=== PATIENT | female | born 1980 | race Caucasian/White ===

== ENCOUNTER 2017-02-04 19:40 | Emergency (ER) | payer BC, SELFPAY | END 2017-02-04 21:25 | disposition home or self-care (01) | PROVIDERS: Emergency Provider Nurse Practitioner Family; Family Provider Family Medicine; Visit Provider Nurse Practitioner Family | DX: J10.1 Influenza due to other identified influenza virus with other respiratory manifestations (principal); J45.909 Unspecified asthma, uncomplicated | CPT/HCPCS: 87804; 87880; 99201 ==

== ENCOUNTER → 2017-04-28 10:49 | Outpatient (CLI) | payer BC, SELFPAY ==
--- NOTE | 2017-04-28 10:57 | XR_ITS ---
XR abdomen min 2V COMPARISON: None HISTORY: Symptoms suggesting constipation TECHNIQUE: KUB and upright abdomen FINDINGS: The bowel gas pattern is unremarkable. There is only minimal stool seen in the ascending colon and in the rectosigmoid colon. There is no significant small bowel gas. There are no abnormal soft tissue shadows. There are surgical clips on both sides of the mid pelvis likely tubal ligation clips. The lumbar spine and bony pelvis appear normal. IMPRESSION: Essentially nondiagnostic abdomen
== END ==
PROVIDERS: PCP Family Medicine; Visit Provider Family Medicine
DX: K59.00 Constipation, unspecified (principal)
CPT/HCPCS: 74019

== ENCOUNTER → 2019-06-25 12:21 | Outpatient (CLI) | payer BC, SELFPAY ==
--- NOTE | 2019-06-25 12:33 | XR_ITS ---
PROCEDURE: XR MULTIPLE SPINE 6+V CLINICAL INDICATION: CONTUSION OF BACK,CONTUSION OF SCALP Pain COMPARISON: No exams were available for comparison FINDINGS: Cervical spine: Five views with obliques. Normal alignment. No fracture or dislocation. The foramina are widely patent and the disc spaces are well preserved. A thin curvilinear density overlies the mid aspect of the neck and may represent something upon the patient probably related to a wire within the mask. There is minimal cervical curvature convex right. There is reversal of the cervical lordosis which may be due to patient positioning or muscle spasm. Thoracic spine: Minimal thoracic curvature convex left. No fracture or dislocation. No lytic or blastic change. IMPRESSION: 1. Reversal of cervical lordosis which may be due to patient positioning or muscle spasm otherwise negative cervical spine. 2. Minimal thoracic curvature otherwise negative thoracic spine Dictated by: Aurelio De Santiago MD 06/26/2019 17:06 Electronically signed by Aurelio De Santiago MD in [place] 06/26/2019 17:06
== END ==
PROVIDERS: PCP Family Medicine; Visit Provider Family Medicine
DX: S20.229A Contusion of unspecified back wall of thorax, initial encounter (principal); S00.03XA Contusion of scalp, initial encounter
CPT/HCPCS: 72084

== ENCOUNTER → 2019-06-26 15:20 | Outpatient (CLI) | payer BC, SELFPAY ==
--- NOTE | 2019-06-26 15:27 | XR_ITS ---
PROCEDURE: REPEAT VIEW XR CLINICAL INDICATION: Repeat lateral, neck pain COMPARISON: XR MULTIPLE SPINE 6+V from 06/25/2019 FINDINGS: Lateral view the cervical spine shows reversal of the cervical lordosis with minimal anterolisthesis of C4 on C5 of 2 mm. No prevertebral soft tissue swelling fracture or other significant anomaly. IMPRESSION: Reversal of lordosis with minimal anterolisthesis of C4 on C5 which could be due to positioning or muscle spasm. Dictated by: Aurelio De Santiago MD 06/27/2019 13:27 Electronically signed by Aurelio De Santiago MD in [place] 06/27/2019 13:27
== END ==
PROVIDERS: PCP Family Medicine; Visit Provider Family Medicine
DX: M54.2 Cervicalgia (principal); M54.6 Pain in thoracic spine

== ENCOUNTER → 2019-07-01 12:54 | Outpatient (CLI) | payer BC, SELFPAY ==
--- NOTE | 2019-07-01 13:00 | CT_ITS ---
PROCEDURE: CT HEAD/BRAIN WO CON CLINICAL INDICATION: CONTUSION OF SCALP Posttraumatic headache with dizziness and nausea COMPARISON: [facility] CT HEAD W/O CONTRAST from 11/10/2015 TECHNIQUE: Axial images obtained. All CT scans at the facility use one or more dose reduction, viz: automated exposure control, ma/kV adjustment per patient size (including targeted exams where dose is matched to indication, i.e. head), or iterative reconstruction technique. FINDINGS: No midline shift, mass effect, intracranial hemorrhage, hydrocephalus, or extra-axial fluid collection is evident. The calvarium has an unremarkable appearance. No mastoid effusion. No sinus air-fluid level. IMPRESSION: No acute intracranial finding Dictated by: Aurelio De Santiago MD 07/01/2019 13:42 Electronically signed by Aurelio De Santiago MD in [place] 07/01/2019 13:42
== END ==
PROVIDERS: PCP Family Medicine; Visit Provider Family Medicine
DX: S00.03XA Contusion of scalp, initial encounter (principal)
CPT/HCPCS: 70450

== ENCOUNTER → 2019-07-10 15:20 | Outpatient (CLI) | payer BC, SELFPAY ==
--- NOTE | 2019-07-10 15:24 | US_ITS ---
PROCEDURE: US THYROID CLINICAL INDICATION: THYROIDMEGALY COMPARISON: No exams were available for comparison FINDINGS: Right lobe: 4.3 x 1.7 x 2 cm. Homogeneous echogenicity. Left lobe: 4.1 x 1.3 x 1.6 cm. Homogeneous echogenicity Isthmus: Unremarkable Additional findings: IMPRESSION: Unremarkable thyroid ultrasound Dictated by: Aurelio De Santiago MD 07/10/2019 17:48 Electronically signed by Aurelio De Santiago MD in [place] 07/10/2019 17:48
== END ==
PROVIDERS: PCP Family Medicine; Visit Provider Family Medicine
DX: E01.0 Iodine-deficiency related diffuse (endemic) goiter (principal)
CPT/HCPCS: 76536

== ENCOUNTER 2019-08-19 19:33 | Emergency (ER) | payer BC, SELFPAY ==
[2019-08-19 19:59] VITALS: BP 118/75; PULSE 83; RESP 20; TEMP 36.8; O2SAT 96; BMI 25.5
--- NOTE | 2019-08-19 20:14 | HMH.EDUTC ---
[facility] [place] Disposition Clinical Impression: Encounter for laboratory testing for COVID-19 virus Disposition: Home, Self-Care Condition on Discharge: Good Instructions: Preventing the Spread of Coronavirus Discharge Instructions Additional Instructions: Go home and self quarantine where you have a known positive exposure, you may have tested early where you are having no symptoms and may need to test again. *Stay self quarantined to watch for symptoms the next 14 days You was given hand out on what to do make sure that you follow those instructions as was given to you to help prevent the spread of COVID19 Make sure to cover your coughs, sneezes etc and wash your hands frequently Return if needed Straight to ER if any life threatening symptoms Referrals: Aneudy Orellana MD [Primary Care Provider] - As needed Forms: Work/School Release Medical Decision Making - Jose Inquiry Pt receiving controlled substance: No Jose was queried for this patient: No Vital Signs: 08/19/19 19:59 Temperature 98.2 F Temperature Source Oral Pulse Rate [Right Brachial] 83 Respiratory Rate 20 Blood Pressure [Right Arm] 118/75 Blood Pressure Mean [Right Arm] 89 Blood Pressure Source [Right Arm] Automatic Cuff Blood Pressure Position [Right Arm] Sitting 02 Sat by Pulse Oximetry 96 Oxygen Delivery Method Room Air Orders (Tests/Meds): ORDERS Category Date Time Status SARS-CoV-2, JV Stat Lab 08/19/19 19:46 Received [facility] [place] HPI - General Stated complaint: wants to be Tested for COVID 19 Time Seen by Provider: 08/19/19 20:14 Mode of Arrival: Ambulatory Source of Information: Patient Limitations: No Limitations Description of Symptoms (Recalled from Triage Doc. by RN): PATIENT STATES SHE WAS EXPOSED TO COVID-19 ON August AND IS REQUESTING A COVID TEST. SHE DENIES ANY SYMPTOMS HEENT Symptoms (Recalled from RN notes): No Resp Symptoms (Recalled from RN notes): No Skin Symptoms (Recalled from RN notes): No MS Symptoms (Recalled from RN notes): No Functional Status (Recalled from RN notes): N/A - History of Present Illness Provider Complaint: Patient states that she was around someone on August 16 that has COVID States that she isnt having any symptoms yet but was worried and wanted to get tested due to known exposure - Related Data Home Medications Medication Instructions Recorded Confirmed fluticasone propionate 50 1 spray INTRANASAL DAILY 03/13/18 03/04/19 mcg/actuation nasal spray,suspension loratadine 10 mg tablet 10 mg PO DAILY 03/13/18 03/04/19 buPROPion HCL [Bupropion Xl] 150 mg PO DAILY 03/04/19 03/04/19 Previous Rx's Medication Instructions Recorded Fluconazole [Diflucan 150mg tab] 150 mg PO ONCE #1 tab 04/23/19 predniSONE [Deltasone 10mg tablet] 10 mg PO BID 4 Days #8 tab 04/23/19 Amoxicillin/Potassium Clav 1 tab PO Q12H 7 Days #14 tab 05/13/19 [Augmentin 875-125 Tablet] Allergies Allergy/AdvReac Type Severity Reaction Status Date / Time No Known Allergies Allergy Verified 02/19/19 08:06 - Worker's Comp Is this a Worker's Comp case?: No [facility] History - Hepatitis A Screen Drug use history?: No High risk sexual behaviors?: No History of sexually transmitted infection?: No Currently employed?: No Childcare worker?: No Do you have indoor plumbing?: Yes Do you have electricity?: Yes Attestation statement:: This patient has been screened for Hepatitis A risk factors. I have reviewed the patient's past medical history: Yes Medical History: Denies:: Cancer, Diabetes Mellitus Type 1, Diabetes Mellitus Type 2, Internal Pacemaker, MRSA Other Medical History: Reports: Other Laterality Cases: Bilateral: Tonsillectomy Other Surgeries: Yes: Hysterectomy-Partial. No: Pacemaker Amputation: No Fractures: No - Social History Smoking Status: Current every day smoker Tobacco Type: cigarettes # Packs/Day (cigarettes): 1 Alcohol Intake: never Substance Use Type: denies use Occupat
[2019-08-19 20:21] VITALS: BP 118/75; PULSE 83; RESP 20; TEMP 36.8; O2SAT 96
[2019-08-21 13:23] LABS: Covid-19 Nasal PCR Sendout Lex NOT DETECTED
== END 2019-08-19 20:31 | disposition home or self-care (01) ==
PROVIDERS: Emergency Provider Nurse Practitioner; PCP Family Medicine
DX: Z03.818 Encounter for observation for suspected exposure to other biological agents ruled out (principal); F17.210 Nicotine dependence, cigarettes, uncomplicated
CPT/HCPCS: 99201; U0004

== ENCOUNTER 2019-08-27 17:35 | Emergency (ER) | payer BC, SELFPAY ==
[2019-08-27 18:18] VITALS: BP 120/75; PULSE 85; RESP 20; TEMP 36.8; O2SAT 97; BMI 25.3
--- NOTE | 2019-08-27 18:22 | HMH.EDUTC ---
[facility] [place] Clinical Impression: Exposure to COVID-19 virus Disposition: Home, Self-Care Condition on Discharge: Good Instructions: Preventing the Spread of Coronavirus Discharge Instructions Additional Instructions: Drink plenty of fluids. Take tylenol or ibuprofen for pain or fever. Take the medications as directed. Follow up with your regular doctor. GO TO THE ER FOR ANY WORSENING SYMPTOMS FOLLOW THE INSTRUCTIONS ON THE COVID-19 HAND OUT THAT WE GAVE YOU. Referrals: Aneudy Orellana MD [Primary Care Provider] - Time of Disposition: 18:24 Medical Decision Making - Medical Records Medical records reviewed: No: I reviewed the patient's medical records. - Jose Inquiry Pt receiving controlled substance: No Vital Signs: 08/27/19 18:18 Temperature 98.3 F Temperature Source Oral Pulse Rate [Right Brachial] 85 Respiratory Rate 20 Blood Pressure [Right Arm] 120/75 Blood Pressure Mean [Right Arm] 90 Blood Pressure Source [Right Arm] Automatic Cuff Blood Pressure Position [Right Arm] Sitting 02 Sat by Pulse Oximetry 97 Oxygen Delivery Method Room Air [facility] [place] - General Stated complaint: wants COVID-19 Test Time Seen by Provider: 08/27/19 18:22 Mode of Arrival: Ambulatory Source of Information: Patient Limitations: No Limitations Description of Symptoms (Recalled from Triage Doc. by RN): PATIENT EXPOSED TO COVID AT [facility] ON 08/16. WAS TESTED LAST WEEK AND WAS NEGATIVE. REQUESTING ANOTHER TEST. DENIES ANY SYMPTOMS HEENT Symptoms (Recalled from RN notes): No Resp Symptoms (Recalled from RN notes): No Skin Symptoms (Recalled from RN notes): No MS Symptoms (Recalled from RN notes): No Functional Status (Recalled from RN notes): WNL - History of Present Illness Provider Complaint: She states that she was exposed to someone with COVID-19 last week. She denies any symptoms but she would like to be checked to make sure, because the person that she was exposed to was asymptomatic too. - Related Data Home Medications Medication Instructions Recorded Confirmed fluticasone propionate 50 1 spray INTRANASAL DAILY 03/13/18 03/04/19 mcg/actuation nasal spray,suspension loratadine 10 mg tablet 10 mg PO DAILY 03/13/18 03/04/19 buPROPion HCL [Bupropion Xl] 150 mg PO DAILY 03/04/19 03/04/19 Previous Rx's Medication Instructions Recorded Fluconazole [Diflucan 150mg tab] 150 mg PO ONCE #1 tab 04/23/19 predniSONE [Deltasone 10mg tablet] 10 mg PO BID 4 Days #8 tab 04/23/19 Amoxicillin/Potassium Clav 1 tab PO Q12H 7 Days #14 tab 05/13/19 [Augmentin 875-125 Tablet] Allergies Allergy/AdvReac Type Severity Reaction Status Date / Time No Known Allergies Allergy Verified 02/19/19 08:06 - Worker's Comp Is this a Worker's Comp case?: No [facility] History - Hepatitis A Screen Drug use history?: No High risk sexual behaviors?: No History of sexually transmitted infection?: No Currently employed?: No Childcare worker?: No Do you have indoor plumbing?: Yes Do you have electricity?: Yes Attestation statement:: This patient has been screened for Hepatitis A risk factors. I have reviewed the patient's past medical history: Yes Medical History: Denies:: Cancer, Diabetes Mellitus Type 1, Diabetes Mellitus Type 2, Internal Pacemaker, MRSA Other Medical History: Reports: Other Laterality Cases: Bilateral: Tonsillectomy Other Surgeries: Yes: Hysterectomy-Partial. No: Pacemaker Amputation: No Fractures: No - Social History Smoking Status: Current every day smoker Tobacco Type: cigarettes # Packs/Day (cigarettes): 1 Alcohol Intake: never Substance Use Type: denies use Occupational Status: other Family Hx:: No significant family history ROS Obtained: Yes All systems reviewed & no additional complaints - Constitutional Constitutional: Denies chills, Denies fever(s) - Eyes Eyes: Denies eye discharge - ENT Ears, Nose, Mouth, and Throat: Denies dizziness, Denies otalgi
[2019-08-27 19:03] VITALS: BP 120/75; PULSE 85; RESP 20; TEMP 36.8; O2SAT 97
[2019-08-29 11:46] LABS: Covid-19 Nasal PCR Sendout Lex Not Detected
== END 2019-08-27 19:05 | disposition home or self-care (01) ==
PROVIDERS: Emergency Provider Nurse Practitioner Family; PCP Family Medicine
DX: Z20.828 Contact with and (suspected) exposure to other viral communicable diseases (principal); F17.210 Nicotine dependence, cigarettes, uncomplicated
CPT/HCPCS: 99201; U0004

== ENCOUNTER 2020-01-16 14:45 | Emergency (ER) | payer OTHER, SELFPAY ==
[2020-01-16 14:46] VITALS: BP 148/76; PULSE 88; RESP 16; TEMP 36.9; O2SAT 98; BMI 24.7
--- NOTE | 2020-01-16 15:27 | CT_ITS ---
PROCEDURE: CT CERVICAL SPINE WO CON CLINICAL INDICATION: tingling/ numbess sensation down right arm COMPARISON: No exams were available for comparison TECHNIQUE: Axial images obtained with sagittal and coronal reformats. All CT scans at the facility use one or more dose reduction, viz: automated exposure control, ma/kV adjustment per patient size (including targeted exams where dose is matched to indication, i.e. head), or iterative reconstruction technique. Axial spiral CT scanning performed of the cervical spine beginning at the base of the skull and continuing to the upper T-spine. 3-D multiplanar reconstruction with 3-D manipulation of volumetric data set in image rendering was completed by the radiologist and/or technologist with the supervision of the radiologist on independent workstation. FINDINGS: There is straightening of the cervical lordosis. This is nonspecific and may be due to patient positioning or muscle spasm. There is normal alignment. No fracture or dislocation. There is slight decrease in the disc space at C5-C6 suggesting mild degenerative disc disease with some minimal endplate osteophytes toward the right. No bony canal stenosis or obvious large extruded herniated disc is evident. Scattered small nodes are present in the neck. IMPRESSION: 1. Reversal cervical lordosis which may be due to patient positioning or muscle spasm. 2. Mild degenerative disc disease C5-C6 Dictated by: Aurelio De Santiago MD 01/16/2020 15:58 Aurelio De Santiago MD in [place] 01/16/2020 15:58
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
[2020-01-16 17:31] VITALS: BP 144/68; PULSE 87; RESP 16; TEMP 36.6; O2SAT 98
== END 2020-01-16 17:33 | disposition home or self-care (01) ==
PROVIDERS: Emergency Provider Emergency Medicine; PCP Family Medicine
DX: S16.1XXA Strain of muscle, fascia and tendon at neck level, initial encounter (principal); M89.8X1 Other specified disorders of bone, shoulder; V63.5XXA Driver of heavy transport vehicle injured in collision with car, pick-up truck or van in traffic accident, initial encounter; Y92.488 Other paved roadways as the place of occurrence of the external cause; F17.210 Nicotine dependence, cigarettes, uncomplicated
CPT/HCPCS: 72125; 99282

== ENCOUNTER 2020-06-21 12:22 | Emergency (ER) | payer OTHER, SELFPAY ==
[2020-06-21 12:24] VITALS: BP 128/91; BP 129/77; PULSE 65; PULSE 66; RESP 16; RESP 17; TEMP 36.6; TEMP 37.1; O2SAT 95; O2SAT 98; BMI 25.0
[2020-06-21 13:05] VITALS: BP 128/91; PULSE 65; RESP 17; TEMP 37.1; O2SAT 95
--- NOTE | 2020-06-21 13:06 | XR_ITS ---
PROCEDURE INFORMATION: Exam: XR Right Hand Exam date and time: 06/21/2020 1:06 PM Age: 40 years old Clinical indication: Pain; Hand; Right; Additional info: Mirror fell on hand TECHNIQUE: Imaging protocol: XR Right hand. Views: 3 or more views. COMPARISON: No relevant prior studies available. FINDINGS: Bones/joints: Lucencies in the head and neck of the 5th metacarpal consistent with nondisplaced fracture.. Soft tissues: Soft tissue swelling adjacent to the 5th metacarpal IMPRESSION: Lucencies in the head and neck of the 5th metacarpal consistent with nondisplaced fracture..
--- NOTE | 2020-06-21 13:06 | HMH.EDUTC ---
[facility] [place] Disposition Clinical Impression: Metacarpal bone fracture Qualifiers: Encounter type: initial encounter Metacarpal bone: fifth Fracture type: closed Metacarpal location: neck Fracture alignment: nondisplaced Laterality: right Qualified Code(s): S62.366A - Nondisplaced fracture of neck of fifth metacarpal bone, right hand, initial encounter for closed fracture Disposition: Home, Self-Care Condition on Discharge: Good Instructions: DI for Boxer's Fracture, How To Perform RICE (Rest, Ice, Compress, Elevate), Boxer's Fracture Additional Instructions: *RICE, Rest the extremity, Ice 15-20 minutes 3-4 times daily, Compress- wear the fei wrap as discussed as much as possible to help reduce swelling and pain, Elevate the extremity when at rest *Fei wrap is for support and help control swelling, use it except in the shower. Be sure that is not to tight but not to loose either *Elevate when resting *Ibuprofen every 6-8 hours as needed for pain an inflammation. If need something more can take Tylenol in between doses of Ibuprofen to help Immediately follow up with your family doctor for new or worsening of symptoms, or no noticeable improvement over the next 3-5 days Prescriptions: Naproxen [Naproxen 500mg tab] 500 mg PO BID PRN #20 tab PRN Reason: Moderate Pain Transmission Status: Received by [id number] Referrals: Aneudy Orellana MD [Primary Care Provider] - As needed Lilly Campos MD [Physician] - (Office will call in the morning with appointment) Time of Disposition: 13:57 Medical Decision Making - Jose Inquiry Pt receiving controlled substance: No Jose was queried for this patient: No Vital Signs: 06/21/20 12:24 06/21/20 13:05 Temperature 98.8 F 98.8 F Temperature Source Oral Pulse Rate 65 Pulse Rate [Radial] 65 Respiratory Rate 17 17 Blood Pressure 128/91 H Blood Pressure [Right Arm] 128/91 H Blood Pressure Mean [Right Arm] 103 Blood Pressure Position [Right Arm] Sitting 02 Sat by Pulse Oximetry 95 Oxygen Delivery Method Room Air - Radiology Data #1 Image(s): Hand Image Reviewed: Yes I reviewed the patient's radiology image Fracture neck of fifth metacarpal - Physician Consults Physician Consulted: Beth Time: 13:50 Reason -: Orthopedic Eval/Care Comment/Response: Spoke with Dr Campos and she viewed xray and agreed Advised to place in ulnar gutter splint RICE Nsaids and office will call in the morning with appointment [facility] [place] HPI - General Stated complaint: Mirror fell right hand-swollen Time Seen by Provider: 06/21/20 13:06 Mode of Arrival: Ambulatory Source of Information: Patient Limitations: No Limitations Description of Symptoms (Recalled from Triage Doc. by RN): right hand injury HEENT Symptoms (Recalled from RN notes): No Resp Symptoms (Recalled from RN notes): No Skin Symptoms (Recalled from RN notes): No MS Symptoms (Recalled from RN notes): Yes Functional Status (Recalled from RN notes): wnl - History of Present Illness Provider Complaint: Patient states that about an hour ago a mirror fell and hit her in the right hand States that ever since she has been having pain and swelling in her right hand on the side by her little finger - Related Data Home Medications Medication Instructions Recorded Confirmed fluticasone propionate 50 1 spray INTRANASAL DAILY 03/13/18 03/04/19 mcg/actuation nasal spray,suspension loratadine 10 mg tablet 10 mg PO DAILY 03/13/18 03/04/19 buPROPion HCL [Bupropion Xl] 150 mg PO DAILY 03/04/19 03/04/19 Previous Rx's Medication Instructions Recorded Fluconazole [Diflucan 150mg tab] 150 mg PO ONCE #1 tab 04/23/19 predniSONE [Deltasone 10mg tablet] 10 mg PO BID 4 Days #8 tab 04/23/19 Amoxicillin/Potassium Clav 1 tab PO Q12H 7 Days #14 tab 05/13/19 [Augmentin 875-125 Tablet] Naproxen [Naproxen 500mg tab] 500 mg PO BID PRN #20 tab 06/21/20 Allergies Allergy/AdvReac Type Severity Reaction Stat
== END 2020-06-21 14:59 | disposition home or self-care (01) ==
PROVIDERS: Emergency Provider Nurse Practitioner; PCP Family Medicine
DX: S62.306A Unspecified fracture of fifth metacarpal bone, right hand, initial encounter for closed fracture (principal); W22.8XXA Striking against or struck by other objects, initial encounter; Y92.019 Unspecified place in single-family (private) house as the place of occurrence of the external cause; Z87.891 Personal history of nicotine dependence
CPT/HCPCS: 29125; 73130; 99202; G0463

== ENCOUNTER → 2020-07-06 08:52 | Outpatient (CLI) | payer OTHER, SELFPAY ==
--- NOTE | 2020-07-06 09:01 | XR_ITS ---
PROCEDURE: XR HAND RT MIN 3V CLINICAL INDICATION: R 5th metacarpal neck fracture Follow-up fracture COMPARISON: CR XR HAND RT MIN 3V from 06/21/2020 FINDINGS: Nondisplaced comminuted fracture involves the distal aspect of the 5th metacarpal. There is mild radial and palmar angulation of the distal fracture fragment. The joint spaces are well-preserved. No significant degenerative/arthritic changes. No erosive changes evident. Other findings:None. IMPRESSION: No change nondisplaced boxer's fracture 5th metacarpal Dictated by: Aurelio De Santiago MD 07/06/2020 09:28 Aurelio De Santiago MD in [place] 07/06/2020 09:28
== END ==
PROVIDERS: PCP Family Medicine; Visit Provider Orthopaedic Surgery
DX: S62.309A Unspecified fracture of unspecified metacarpal bone, initial encounter for closed fracture (principal)
CPT/HCPCS: 73130

== ENCOUNTER 2020-07-06 13:01 | Outpatient (RCR) | payer OTHER, SELFPAY | END 2020-07-06 15:00 | disposition home or self-care (01) | LOC: OT 13:01 | PROVIDERS: Visit Provider Orthopaedic Surgery | DX: S62.366A Nondisplaced fracture of neck of fifth metacarpal bone, right hand, initial encounter for closed fracture (principal) | CPT/HCPCS: 97760 ==

== ENCOUNTER → 2020-08-11 13:25 | Outpatient (CLI) | payer OTHER, SELFPAY ==
--- NOTE | 2020-08-11 13:29 | XR_ITS ---
PROCEDURE: XR HAND RT MIN 3V CLINICAL INDICATION: right 5th MC fracture COMPARISON: CR XR HAND RT MIN 3V from 06/21/2020 CR XR HAND RT MIN 3V from 07/06/2020 FINDINGS: Healing nondisplaced fracture involves the distal aspect of the 5th metacarpal. There is minimal radial and palmar angulation of the distal fracture fragment. Callus formation is developing at the fracture site. The joint spaces are well-preserved. No significant degenerative/arthritic changes. No erosive changes evident. Other findings:None. IMPRESSION: Healing nondisplaced fracture 5th metacarpal Dictated by: Aurelio De Santiago MD 08/11/2020 17:38 Aurelio De Santiago MD in [place] 08/11/2020 17:38
== END ==
PROVIDERS: PCP Family Medicine; Visit Provider Orthopaedic Surgery
DX: S62.309A Unspecified fracture of unspecified metacarpal bone, initial encounter for closed fracture (principal)
CPT/HCPCS: 73130

== ENCOUNTER → 2020-12-09 11:40 | Outpatient (CLI) | payer OTHER, SELFPAY ==
[2020-12-09 12:51] LABS: Alanine Aminotransferase 15 U/L (12-78); Albumin Level 4.3 g/dl (3.5-5.0); Albumin/Globulin Ratio 1.5 (1.1-1.8); Alkaline Phosphatase 60 U/L (38-126); Aspartate Amino Transferase 24 U/L (14-36); Bilirubin,Total 0.3 mg/dl (0.2-1.3); Blood Urea Nitrogen 9 mg/dl (7-17); Calcium 9.5 mg/dl (8.4-10.2); Carbon Dioxide 29 mmol/L (22.0-30.0); Chloride 103 mmol/L (98-107); Estimated Glomerular Filt Rate 112 ml/min (>60); GFR (African American) 135 ML/MIN (>60); Globulin 2.8 g/dL (1.3-3.2); Glucose 104 mg/dl (74-100); Sodium 141 mmol/L (136-145); Total Protein,Serum 7.1 g/dl (6.3-8.2)
== END ==
PROVIDERS: Visit Provider Nurse Practitioner Obstetrics & Gynecology
DX: Z79.899 Other long term (current) drug therapy (principal)
CPT/HCPCS: 36415; 80053

== ENCOUNTER → 2021-02-05 09:49 | Outpatient (CLI) | payer OTHER, SELFPAY | PROVIDERS: Visit Provider Nurse Practitioner | DX: U07.1 COVID-19 (principal) | CPT/HCPCS: C9803; U0003; U0005 ==

== ENCOUNTER → 2021-04-06 15:21 | Outpatient (CLI) | payer OTHER, SELFPAY ==
--- NOTE | 2021-04-06 15:26 | CT_ITS ---
FINAL REPORT TECHNIQUE: After the administration of intravenous contrast, axial images through the chest were performed by computed tomography.This study was performed with techniques to keep radiation doses as low as reasonably achievable, (ALARA). Individualized dose reduction techniques using automated exposure control or adjustment of mA and/or kV according to the patient''s size were employed. CLINICAL HISTORY: COUGH,WEIGHT LOSS FINDINGS: There is no axillary adenopathy. There is soft tissue knee anterior mediastinum probably due to residual thymic tissue. There is no hilar or mediastinal adenopathy. The heart size is normal. There is no pericardial or pleural effusion. Limited images of the upper abdomen are unremarkable. No suspicious infiltrate or nodule identified. IMPRESSION: No acute process. Reviewed, Interpreted and Dictated by Harvinder Frias MD Transcribed by Marcelo Olmstead Authenticated by Harvinder Frias MD on 04/06/2021 04:49:24 PM [facility]
== END ==
PROVIDERS: PCP Internal Medicine Adolescent Medicine; Visit Provider Internal Medicine Adolescent Medicine
DX: R05.9 Cough, unspecified (principal); R63.4 Abnormal weight loss
CPT/HCPCS: 71260; Q9967

== ENCOUNTER 2021-05-22 09:07 | Emergency (ER) | payer OTHER, SELFPAY ==
[2021-05-22 09:16] VITALS: BP 136/79; PULSE 80; RESP 19; TEMP 37; O2SAT 96; BMI 25.0
--- NOTE | 2021-05-22 09:36 | HMH.EDUTC ---
[facility] Disposition Clinical Impression: Sinusitis Qualifiers: Sinusitis location: unspecified location Chronicity: acute Recurrence: non-recurrent Qualified Code(s): J01.90 - Acute sinusitis, unspecified Otitis media Qualifiers: Otitis media type: suppurative Chronicity: acute Laterality: bilateral Recurrence: non-recurrent Spontaneous tympanic membrane rupture: without spontaneous rupture Qualified Code(s): H66.003 - Acute suppurative otitis media without spontaneous rupture of ear drum, bilateral Disposition: Home, Self-Care Condition on Discharge: Good Instructions: DI for Sinusitis Additional Instructions: Drink plenty of fluids. Take tylenol or ibuprofen for pain or fever. Take the medications as directed. Follow up with your regular doctor. GO TO THE ER FOR ANY WORSENING SYMPTOMS Prescriptions: Amoxicillin/Potassium Clav [Amox-Clav 875-125 mg Tablet] 1 tab PO BID #20 tab Transmission Status: Received by [id number] methylPREDNISolone [Medrol] 4 mg PO DIRECTED 6 Days #21 packet Transmission Status: Received by [id number] guaiFENesin [Mucinex 600mg tablet] 1 - 2 tab PO BIDP PRN #30 tab PRN Reason: Congestion Transmission Status: Received by [id number] Referrals: Carlos Wolf MD [Primary Care Provider] - Time of Disposition: 09:57 Medical Decision Making - Medical Records Medical records reviewed: No: I reviewed the patient's medical records. - Jose Inquiry Pt receiving controlled substance: No Vital Signs: 05/22/21 09:16 05/22/21 10:02 Temperature 98.6 F 98.6 F Temperature Source Oral Pulse Rate 80 Pulse Rate [Left] 80 Respiratory Rate 19 19 Blood Pressure 136/79 Blood Pressure [Right Arm] 136/79 Blood Pressure Mean [Right Arm] 98 02 Sat by Pulse Oximetry 96 [facility] HPI - General Stated complaint: ear pain, sinus drainage Time Seen by Provider: 05/22/21 09:36 Mode of Arrival: Ambulatory Source of Information: Patient Limitations: No Limitations Description of Symptoms (Recalled from Triage Doc. by RN): pt c/o sinus drainage/congestion and bilateral ear aches. HEENT Symptoms (Recalled from RN notes): Yes Resp Symptoms (Recalled from RN notes): No Skin Symptoms (Recalled from RN notes): No MS Symptoms (Recalled from RN notes): No Functional Status (Recalled from RN notes): wnl - History of Present Illness Provider Complaint: She states that she has had bilateral ear pain for the past 2 days. - Related Data Home Medications Medication Instructions Recorded Confirmed fluticasone propionate 50 1 spray INTRANASAL DAILY 03/13/18 12/09/20 mcg/actuation nasal spray,suspension loratadine 10 mg tablet 10 mg PO DAILY 03/13/18 12/09/20 B-complex with vitamin C 1 cap PO DAILY 12/09/20 12/09/20 biotin 1 mg capsule 1 mg PO DAILY 12/09/20 12/09/20 cholecalciferol (vitamin D3) 50 50 mcg PO DAILY 12/09/20 12/09/20 mcg (2,000 unit) capsule magnesium 30 mg tablet 30 mg PO DAILY 12/09/20 12/09/20 Previous Rx's Medication Instructions Recorded bupropion HCl 150 mg 24 hr tablet, 150 mg PO DAILY #90 tab 10/01/20 extended release spironolactone 100 mg tablet 100 mg PO DAILY #90 tab 12/09/20 Amoxicillin/Potassium Clav 1 tab PO BID #20 tab 05/22/21 [Amox-Clav 875-125 mg Tablet] guaiFENesin [Mucinex 600mg tablet] 1 - 2 tab PO BIDP PRN #30 tab 05/22/21 methylPREDNISolone [Medrol] 4 mg PO DIRECTED 6 Days #21 05/22/21 packet Allergies Allergy/AdvReac Type Severity Reaction Status Date / Time No Known Allergies Allergy Verified 12/09/20 10:14 - Worker's Comp Is this a Worker's Comp case?: No [facility] History - Hepatitis A Screen Drug use history?: No High risk sexual behaviors?: No History of sexually transmitted infection?: No Currently employed?: No Childcare worker?: No Do you have indoor plumbing?: Yes Do you have electricity?: Yes Attestation statement:: This patient has been screened for Hepa
[2021-05-22 10:02] VITALS: BP 136/79; PULSE 80; RESP 19; TEMP 37
== END 2021-05-22 10:03 | disposition home or self-care (01) ==
PROVIDERS: Emergency Provider Nurse Practitioner Family; PCP Internal Medicine Adolescent Medicine
DX: H66.003 Acute suppurative otitis media without spontaneous rupture of ear drum, bilateral (principal); J01.90 Acute sinusitis, unspecified; F17.210 Nicotine dependence, cigarettes, uncomplicated; Z79.51 Long term (current) use of inhaled steroids; Z79.899 Other long term (current) drug therapy
CPT/HCPCS: 99213; G0463

== ENCOUNTER → 2021-07-21 15:18 | Outpatient (CLI) | payer OTHER, SELFPAY ==
--- NOTE | 2021-07-21 15:30 | CT_ITS ---
FINAL REPORT TECHNIQUE: Thin section axial CT images with coronal and sagittal reformats were performed through the neck. This study was performed with techniques to keep radiation doses as low as reasonably achievable (ALARA). Individualized dose reduction techniques using automated exposure control or adjustment of mA and/or kV according to the patient''s size were employed. CLINICAL HISTORY: DIFFICULTY BREATHING FINDINGS: No adenopathy or mass lesion is present . Salivary glands are normal. The nasopharynx, oropharynx, hypopharynx, and larynx have an unremarkable appearance. Thyroid gland is unremarkable. There is no neck mass or adenopathy. There is no abnormal fluid collection. The sinuses are normal. There are postoperative changes in the lower cervical spine. IMPRESSION: No acute abnormality. Reviewed, Interpreted and Dictated by Alvaro Manrique III, MD Transcribed by Naida Avila Authenticated and [facility]
[2021-07-21 17:27] LABS: Alanine Aminotransferase 14 U/L (12-78); Albumin Level 4.4 g/dl (3.5-5.0); Alkaline Phosphatase 79 U/L (38-126); Aspartate Amino Transferase 24 U/L (14-36); Bilirubin,Unconjugated 0.4 mg/dL (0.0-1.1); Blood Urea Nitrogen 13 mg/dl (7-17); Calcium 9.5 mg/dl (8.4-10.2); Carbon Dioxide 28 mmol/L (22.0-30.0); Chloride 103 mmol/L (98-107); Estimated Glomerular Filt Rate 93 ml/min (>60); GFR (African American) 113 ML/MIN (>60); Glucose 86 mg/dl (74-100); Sodium 139 mmol/L (136-145); Total Protein,Serum 7.3 g/dl (6.3-8.2)
[2021-07-21 17:36] LABS: Bilirubin,Indirect 0.1 mg/dL (0.0-0.9); Bilirubin,Total 0.1 mg/dl (0.2-1.3)
== END ==
PROVIDERS: PCP Internal Medicine Adolescent Medicine; Visit Provider Nurse Practitioner Obstetrics & Gynecology
DX: R06.89 Other abnormalities of breathing (principal)
CPT/HCPCS: 36415; 70490; 80048; 80076

== ENCOUNTER 2021-08-30 19:36 | Emergency (ER) | payer OTHER, SELFPAY ==
[2021-08-30 19:37] VITALS: BP 117/77; PULSE 78; RESP 18; TEMP 36.5; O2SAT 99; BMI 25.0
[2021-08-30 20:17] LABS: Occult Blood,Stool Positive (Negative)
--- NOTE | 2021-08-30 20:20 | CT_ITS ---
PROCEDURE INFORMATION: Exam: CT Abdomen And Pelvis With Contrast Exam date and time: 08/30/2021 8:30 PM Age: 41 years old Clinical indication: Other: Bloody stool; Prior surgery; Surgery date: 6+ months; Surgery type: Hysterectomy; Additional info: Rectal bleeding x wks since starting new medication TECHNIQUE: Imaging protocol: Computed tomography of the abdomen and pelvis with contrast. Radiation optimization: All CT scans at this facility use at least one of these dose optimization techniques: automated exposure control; mA and/or kV adjustment per patient size (includes targeted exams where dose is matched to clinical indication); or iterative reconstruction. Contrast material: ISOVUE; Contrast volume: 75 ml; Contrast route: IV; COMPARISON: CT ABDOMEN PELVIS W CON 03/04/2019 9:23 PM FINDINGS: Lungs: No mass/infiltrate at either lung base. No pleural effusion. Liver: The liver is normal size. There is an ill-defined area of decreased attenuation within the lateral aspect of the medial segment of the left hepatic lobe adjacent to the falciform ligament. This is felt to represent focal fatty metamorphosis. No intrahepatic biliary dilatation. Gallbladder and bile ducts: Normal. No calcified stones. No ductal dilation. Gallbladder wall thickness is normal. Pancreas: Normal. No ductal dilation. Spleen: Normal. No splenomegaly. Adrenal glands: Normal. No mass. Kidneys and ureters: Normal. No hydronephrosis. Stomach and bowel: Unremarkable. No obstruction. No mucosal thickening. Small bowel mesentery is normal. Appendix: Unremarkable. Intraperitoneal space: Unremarkable. No free air. No significant fluid collection. Vasculature: Unremarkable. No abdominal aortic aneurysm. There are calcified phleboliths within the pelvis. Lymph nodes: Unremarkable. No enlarged lymph nodes. Urinary bladder: Unremarkable as visualized. Reproductive: Hysterectomy has been performed. 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 No acute fracture. Soft tissues: There is a small umbilical hernia which contains fat. IMPRESSION: 1. Findings within the left hepatic lobe are compatible with focal fatty metamorphosis. No mass. 2. Hysterectomy has been performed. 3. There is a small umbilical hernia which contains fat. 4. No acute process within the abdomen or pelvis.
[2021-08-30 20:21] LABS: Microscopic, Urine URINE MICROSCOPIC (MICROSCOPIC)
[2021-08-30 20:29] LABS: Basophils # 0.1 K/mm3 (0-0.2); Eosinophils # 0.1 K/mm3 (0.0-0.4); Eosinophils % 0.9 % (0.1-12.0); Hemoglobin 15.4 g/dL (12.2-16.2); Lymphocytes # 2.6 K/mm3 (0.7-4.5); Lymphocytes % 22.3 % (10-50); Mean Corpuscular HGB Conc 34.3 g/dL (31.8-35.4); Mean Corpuscular Hemoglobin 30.3 pg (27.0-31.2); Mean Corpuscular Volume 88.4 fl (81-99); Mean Platelet Volume 6.9 fl (7.4-10.4); Monocytes # 0.5 K/mm3 (0.1-1.0); Monocytes % 4.3 % (1.7-9.3); Neutrophils # 8.3 K/mm3 (1.8-7.8); Neutrophils % 71.6 % (37.0-80.0); Platelet Count 221 K/mm3 (142-424); Red Blood Count 5.09 M/mm3 (4.20-5.40); Red Cell Distribution Width 12.3 % (11.5-17.5); White Blood Count 11.6 K/mm3 (4.8-10.8)
[2021-08-30 20:30] LABS: Alanine Aminotransferase 14 U/L (12-78); Albumin/Globulin Ratio 1.4 (1.1-1.8); Alkaline Phosphatase 74 U/L (38-126); Anion Gap 9.7 mEq/L (5-15); Aspartate Amino Transferase 23 U/L (14-36); Blood Urea Nitrogen 15 mg/dl (7-17); Calcium 8.8 mg/dl (8.4-10.2); Carbon Dioxide 27 mmol/L (22.0-30.0); Chloride 104 mmol/L (98-107); Creatinine Clearance Estimated 96 mL/min (50-200); Estimated Glomerular Filt Rate 70 ml/min (>60); GFR (African American) 84 ML/MIN (>60); Globulin 2.9 g/dL (1.3-3.2); Glucose 109 mg/dl (74-100); Potassium 3.7 mmoL/L (3.5-5.1); Sodium 137 mmol/L (136-145); Total Protein,Serum 6.9 g/dl (6.3-8.2)
[2021-08-30 20:32] LABS: Bilirubin,Total < 0.1 mg/dl (0.2-1.3)
[2021-08-30 20:47] LABS: Appearance,Urine CLEAR (Clear); Bilirubin,Urine Negative (Negative); Blood, Urine Negative (Negative); Color,Urine YELLOW (Yellow); Glucose,Urine (UA) Negative (Negative); Ketones,Urine TRACE (Negative); Leukocyte Esterase,Urine Negative (Negative); Nitrate,Urine Negative (Negative); Procalcitonin 0.035 ng/mL (0.0-2.0); Protein,Urine TRACE (Negative); Specific Gravity, Urine >= 1.030 (1.005-1.030)
--- NOTE | 2021-08-30 21:14 | HMH.EDGIBL ---
ED Disposition Clinical Impression: Lower gastrointestinal hemorrhage Disposition: Home, Self-Care Condition on Discharge: Good Instructions: DI for Gastrointestinal Bleeding Additional Instructions: call pcp in am Referrals: Carlos Wolf MD [Primary Care Provider] - - Critical Care Critical Care Time: No Attestation: On 08/30/21, the high probability of a clinically significant, sudden or life threatening deterioration of the following system(s) required my full and direct attention, intervention and personal management. The time I documented below is in addition to time spent performing reported procedures but includes the following listed in this critical care notation. Medical Decision Making - Medical Records Medical records reviewed: Yes: I reviewed the patient's medical records. - Jose Inquiry Pt receiving controlled substance: No Vital Signs: 08/30/21 19:37 Temperature 97.7 F Temperature Source Oral Pulse Rate [Right] 78 Respiratory Rate 18 Blood Pressure [Right Arm] 117/77 Blood Pressure Mean [Right Arm] 90 02 Sat by Pulse Oximetry 99 - Lab Data Lab results reviewed: Yes: I reviewed the patient's lab results. Lab Results 08/30/21 20:10: Stool Occult Blood Positive A 08/30/21 20:16: WBC 11.6 H, RBC 5.09, Hgb 15.4, Hct 45.0, MCV 88.4, MCH 30.3, MCHC 34.3, RDW 12.3, Plt Count 221, MPV 6.9 L, Neut % (Auto) 71.6, Lymph % (Auto) 22.3, [place] % (Auto) 4.3, Eos % (Auto) 0.9, Baso % (Auto) 1.0, Neut # (Auto) 8.3 H, Lymph # (Auto) 2.6, Valencia # (Auto) 0.5, Eos # (Auto) 0.1, Baso # (Auto) 0.1, ESR 4 08/30/21 20:16: Sodium 137, Potassium 3.7, Chloride 104, Carbon Dioxide 27, Anion Gap 9.7, BUN 15, Creatinine 0.90, Estimated Creat Clear 96, Estimated GFR 70, Est GFR ( Amer) 84, Glucose 109 H, Calcium 8.8, Total Bilirubin < 0.1 L, AST 23, ALT 14, Alkaline Phosphatase 74, C-Reactive Protein 1.0, Total Protein 6.9, Albumin 4.0, Globulin 2.9, Albumin/Globulin Ratio 1.4, Procalcitonin 0.035 08/30/21 20:16: Urine Color Yellow, Urine Appearance Clear, Urine pH 6.0, Ur Specific [place] >= 1.030, Urine Protein Trace, Urine Glucose (UA) Negative, Urine Ketones Trace, Urine Blood Negative, Urine Nitrate Negative, Urine Bilirubin Negative, Urine Urobilinogen 1.0, Ur Leukocyte Esterase Negative, Urine WBC 3-5, Ur Squamous Epith Cells 3-5, Urine Bacteria 1+, Urine Mucus 1+ Result diagrams: 08/30/21 20:16 08/30/21 20:16 Orders (Tests/Meds): ED MEDICATIONS Generic Name Dose Route Start Last Admin Trade Name Freq PRN Reason Stop Dose Admin Sodium Chloride 1,000 mls @ 999 mls/hr 08/30/21 20:30 08/30/21 20:30 Sod Chlor 0.9% 1000ml Bag IV 08/30/21 21:30 999 mls/hr .Q1H1M HENRRY Administration Discontinued Medications Generic Name Dose Route Start Last Admin Trade Name Freq PRN Reason Stop Dose Admin Iopamidol 75 ml 08/30/21 20:34 08/30/21 20:35 Iopamidol-370 (76%);100ml Bottle IV 08/30/21 20:35 75 ml ONCE ONE Administration Sodium Chloride 10 ml 08/30/21 20:34 08/30/21 20:35 Sodium Chloride 0.9% 10ml Syr (Rad Only) IV 08/30/21 20:35 10 ml ONCE ONE Administration - CT Data CT Scan: Abdomen, Pelvis Time Received: 21:[address] Reviewed: Yes: I have viewed the radiologist's interpretation Preliminary Findings: Normal/NAD Medical Decision Narrative: brrb with stable labs and xray and will need f/u with pcp for possible colonoscopy GI Bleed HPI - General Chief complaint: GI Bleed Stated complaint: bleeding from below area and stomach hurts Time Seen by Provider: 08/30/21 21:14 Mode of Arrival: Ambulatory Source of Information: Patient, Medical Record Limitations: No Limitations Description of Symptoms (Recalled from ER Triage Doc. by RN): pt states for a week when pt wipes after BM noticing bright red blood. today after having bm noticed bright red blood in toliet. pt denies any abd,n/v - History of Present Illness HPI Narrative: pt with brrb over the last
[2021-08-30 21:16] LABS: Erythrocyte Sedimentation Rate 4 mm/hr (0-20)
[2021-08-30 21:23] LABS: Bacteria,Urine 1+ /lpf; Mucus,Urine 1+ /lpf
[2021-08-30 21:45] VITALS: BP 117/82; PULSE 78; RESP 16; TEMP 36.7; O2SAT 98
== END 2021-08-30 21:59 | disposition home or self-care (01) ==
PROVIDERS: Emergency Provider Emergency Medicine; PCP Internal Medicine Adolescent Medicine
DX: K92.2 Gastrointestinal hemorrhage, unspecified
CPT/HCPCS: 74177; 80053; 81001; 82272; 84145; 85025; 85651; 86140; 96365; 99284; G0328; Q9967

== ENCOUNTER 2021-09-16 06:15 | Emergency (ER) | payer OTHER, SELFPAY ==
[2021-09-16 06:17] VITALS: BP 129/101; PULSE 93; RESP 18; TEMP 37.2; O2SAT 99; BMI 25.0
--- NOTE | 2021-09-16 06:42 | XR_ITS ---
FINAL REPORT CLINICAL HISTORY: Flexion/extension views. RUE pain, recent fusion june 2020 FINDINGS: Flexion and extension views were obtained. There is fusion of C5-C6. There is no acute fracture. There is no malalignment. The disc spaces are maintained. There is no abnormal movement with flexion or extension. IMPRESSION: No acute process. Fusion of C5-C6. Reviewed, Interpreted and Dictated by Alvaro Manrique III, MD Transcribed by Marcelo Olmstead Authenticated and [facility]
--- NOTE | 2021-09-16 06:46 | HMH.EDGENADL ---
ED Disposition Clinical Impression: Radiculopathy affecting upper extremity Disposition: Home, Self-Care Condition on Discharge: Good Additional Instructions: Follow-up with your primary care provider regarding this visit to the emergency department for scheduling of outpatient MRI to further characterize nerve pain in your right upper extremity. Follow-up with neurosurgery as scheduled. If you have any other concerning signs or symptoms, return to the emergency department for further evaluation, or to your primary care family doctor. Referrals: Carlos Wolf MD [Primary Care Provider] - - Critical Care Critical Care Time: No Attestation: On 09/16/21, the high probability of a clinically significant, sudden or life threatening deterioration of the following system(s) required my full and direct attention, intervention and personal management. The time I documented below is in addition to time spent performing reported procedures but includes the following listed in this critical care notation. Medical Decision Making - Jose Inquiry Pt receiving controlled substance: No Vital Signs: 09/16/21 06:17 09/16/21 06:58 Temperature 98.9 F Temperature Source Oral Pulse Rate 87 Pulse Rate [Right] 93 H Respiratory Rate 18 Blood Pressure 126/87 Blood Pressure [Right Arm] 129/101 H Blood Pressure Mean [Right Arm] 110 02 Sat by Pulse Oximetry 99 96 Oxygen Delivery Method Room Air - Lab Data Lab Results 09/16/21 06:35: WBC 9.6, RBC 5.15, Hgb 15.8, Hct 47.4 H, MCV 92.0, MCH 30.7, MCHC 33.3, RDW 12.8, Plt Count 233, MPV 7.4, Neut % (Auto) 72.3, Lymph % (Auto) 19.9, Early % (Auto) 3.8, Eos % (Auto) 2.2, Baso % (Auto) 1.9, Neut # (Auto) 6.9, Lymph # (Auto) 1.9, Early # (Auto) 0.4, Eos # (Auto) 0.2, Baso # (Auto) 0.2 09/16/21 06:35: Sodium 137, Potassium 3.7, Chloride 108 H, Carbon Dioxide 23, Anion Gap 9.7, BUN 9, Creatinine 0.60, Estimated Creat Clear 144, Estimated GFR 111, Est GFR ( Amer) 135, Glucose 130 H, Calcium 9.3, Total Bilirubin 0.2, AST 31, ALT 19, Alkaline Phosphatase 70, C-Reactive Protein 0.9, Total Protein 7.2, Albumin 4.2, Globulin 3.0, Albumin/Globulin Ratio 1.4 09/16/21 06:35: ESR 13 Result diagrams: 09/16/21 06:35 09/16/21 06:35 Orders (Tests/Meds): ED MEDICATIONS Generic Name Dose Route Start Last Admin Trade Name Freq PRN Reason Stop Dose Admin Lactated Ringer's 1,000 mls @ 999 mls/hr 09/16/21 07:30 09/16/21 07:41 Lactated Ringer's 1000 Ml Bag IV 09/16/21 08:30 999 mls/hr .Q1H1M HENRRY Administration Sodium Chloride 10 ml 09/16/21 07:18 Sodium Chloride 0.9% 10ml Flush Syringe IV 09/16/21 19:18 NEEDED PRN Maintain IV Site Discontinued Medications Generic Name Dose Route Start Last Admin Trade Name Freq PRN Reason Stop Dose Admin Hydrocodone Bitart/Acetaminophen 1 tab 09/16/21 07:04 09/16/21 07:41 Hydrocodone/Apap 5/325 Mg Tablet PO 09/16/21 07:05 1 tab ONCE ONE Administration - ECG Data Tracing #1 Normal sinus rhythm [address] or T wave changes concerning for acute ischemia. CT, QRS, QT intervals within normal limits. 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 On arrival, patient hemodynamically stable, alert, oriented, moving all extremities spontaneously, pupils equal and reactive to light, GCS 15. Patient with equal and symmetric strength and sensation bilaterally, with the exception of hyperalgesia right upper extremity C6 distribution. Patient without significant neurologic deficits at this time, or complaints of red flag symptoms. Differential includes herniation, neuropraxia, radiculopathy, myelopathy, epidural hematoma, epidural abscess, among others. Work-up significant for nonactionable CBC or CMP. Nega
--- NOTE | 2021-09-16 06:51 | ECG_ITS ---
APPROVED REPORT Exam: Resting ECG HR:88 bpm ECG Measurements Heart Rate 88 AXES QRSd 81 QRS 83 QT 344 T 71 QTc 390 Conclusion NSR Low voltages, o/w normal ecg Electronically signed by : Carlos Wolf MD 09/16/2021 13:42:30
[2021-09-16 06:52] LABS: Basophils # 0.2 K/mm3 (0-0.2); Basophils % 1.9 % (0.1-2.0); Chloride 108 mmol/L (98-107); Eosinophils # 0.2 K/mm3 (0.0-0.4); Eosinophils % 2.2 % (0.1-12.0); Hematocrit 47.4 % (37.0-47.0); Hemoglobin 15.8 g/dL (12.2-16.2); Lymphocytes # 1.9 K/mm3 (0.7-4.5); Lymphocytes % 19.9 % (10-50); Mean Corpuscular HGB Conc 33.3 g/dL (31.8-35.4); Mean Corpuscular Hemoglobin 30.7 pg (27.0-31.2); Mean Platelet Volume 7.4 fl (7.4-10.4); Monocytes # 0.4 K/mm3 (0.1-1.0); Monocytes % 3.8 % (1.7-9.3); Neutrophils # 6.9 K/mm3 (1.8-7.8); Neutrophils % 72.3 % (37.0-80.0); Platelet Count 233 K/mm3 (142-424); Potassium 3.7 mmoL/L (3.5-5.1); Red Blood Count 5.15 M/mm3 (4.20-5.40); Red Cell Distribution Width 12.8 % (11.5-17.5); Sodium 137 mmol/L (136-145); White Blood Count 9.6 K/mm3 (4.8-10.8)
[2021-09-16 06:55] LABS: Alanine Aminotransferase 19 U/L (12-78); Albumin Level 4.2 g/dl (3.5-5.0); Albumin/Globulin Ratio 1.4 (1.1-1.8); Alkaline Phosphatase 70 U/L (38-126); Anion Gap 9.7 mEq/L (5-15); Aspartate Amino Transferase 31 U/L (14-36); Bilirubin,Total 0.2 mg/dl (0.2-1.3); Blood Urea Nitrogen 9 mg/dl (7-17); Calcium 9.3 mg/dl (8.4-10.2); Carbon Dioxide 23 mmol/L (22.0-30.0); Creatinine Clearance Estimated 144 mL/min (50-200); Estimated Glomerular Filt Rate 111 ml/min (>60); GFR (African American) 135 ML/MIN (>60); Glucose 130 mg/dl (74-100); Total Protein,Serum 7.2 g/dl (6.3-8.2)
--- NOTE | 2021-09-16 06:57 | PC.NURSE ---
notified xray of xrays orders
--- NOTE | 2021-09-16 06:57 | PC.NURSE ---
EKG completed at this time by herbert
[2021-09-16 06:58] VITALS: BP 126/87; PULSE 87; O2SAT 96
[2021-09-16 07:00] LABS: C-Reactive Protein 0.9 mg/L (0-4)
--- NOTE | 2021-09-16 07:02 | PC.NURSE ---
Pt to xray at this time
--- NOTE | 2021-09-16 07:08 | PC.NURSE ---
Pt returning from xray at this time
--- NOTE | 2021-09-16 07:40 | PC.NURSE ---
pt medicated per MAR, updated pt we are waiting on xray readings. Pt states no needs at this time.
[2021-09-16 07:43] LABS: Erythrocyte Sedimentation Rate 13 mm/hr (0-20)
--- NOTE | 2021-09-16 08:15 | PC.NURSE ---
son at the bedside to transport pt home for d/c
[2021-09-16 08:18] VITALS: BP 121/80; PULSE 89; RESP 18; TEMP 37.2; O2SAT 97
== END 2021-09-16 08:19 | disposition home or self-care (01) ==
PROVIDERS: Emergency Provider Emergency Medicine; PCP Internal Medicine Adolescent Medicine
DX: M54.12 Radiculopathy, cervical region (principal); M50.222 Other cervical disc displacement at C5-C6 level; R53.1 Weakness; F17.210 Nicotine dependence, cigarettes, uncomplicated; Z98.1 Arthrodesis status; W19.XXXA Unspecified fall, initial encounter
CPT/HCPCS: 72040; 80053; 85025; 85651; 86140; 93005; 96360; 99285

== ENCOUNTER → 2021-11-01 12:06 | Outpatient (CLI) | payer OTHER, SELFPAY ==
[2021-11-01 12:52] LABS: Urine Pregnancy, HCG Qual. Negative (Negative)
== END ==
PROVIDERS: PCP Internal Medicine Adolescent Medicine; Visit Provider Internal Medicine
DX: Z01.818 Encounter for other preprocedural examination (principal); Z20.822 Contact with and (suspected) exposure to COVID-19; Z12.11 Encounter for screening for malignant neoplasm of colon
CPT/HCPCS: 81025; C9803; U0003; U0005

== ENCOUNTER 2021-11-03 09:02 | Day surgery (SDC) | payer OTHER, SELFPAY ==
[2021-11-02 11:45] VITALS: BMI 24.3
[2021-11-03 09:21] VITALS: BP 116/69; PULSE 74; RESP 16; TEMP 36.6; O2SAT 99
--- NOTE | 2021-11-03 09:36 | P.PN_ITS ---
PFSH PFS Medical History (Updated 11/02/21 @ 11:48 by Naida Harris RN) Allergies Eczema Migraine Urinary tract infection Surgical History (Updated 11/02/21 @ 11:48 by Naida Harris RN) History of hysterectomy History of tonsillectomy Family History (Updated 11/02/21 @ 11:49 by Naida Harris RN) Other Family history of hypertension Social History (Updated 11/02/21 @ 11:50 by Naida Harris RN) Smoking Status: Current every day smoker tobacco type: cigarettes packs per day: 1 second hand exposure: No alcohol intake: never substance use type: denies use current occupational status: employed Travel in the last 8 weeks: None [facility] Anesthesia Checklist Patient Identification Patient Identification: Arm Band and Verbal (Name & ) Structural Data Admitted From: Home Planned Operative Procedure/s: Colonoscopy Consent for Planned Operative Procedure(s) Verified: Yes NPO Status Verified Time NPO: 07:00 (Prep) Airway Assessment C-Spine Mobility Assessed: Yes TMJ Mobility Assessed: Yes Dentition: Good Dentition Neurological Assessment Level of Consciousness: Awake Hx Seizures: No Numbness or tingling in extremities: Yes Anesthesia Plan Anesthesia Risk discussed: Yes Anesthesia Plan: Verified ASA Class: II Anesthesia Type: MAC
[2021-11-03 10:00] VITALS: O2SAT 97
--- NOTE | 2021-11-03 10:16 | HMH.SCOPE ---
Procedure: Date: 11/03/21 Patient Date of :: 1980 Procedure Performed:: Colonoscopy Indications:: The patient had episodes of bright red blood per rectum 1-2 months ago. There is a history of chronic intermittent constipation Performing Provider:: Serge Mike MD Referring Provider:: Carlos Wolf MD Sedation:: See RN notes Procedure:: After placing the patient in the left lateral decubitus position, the colonoscopy was gently inserted into the rectum and under direct visualization advanced to the cecum which was identified by transillumination in the right lower quadrant, identification of the ileocecal valve, appendiceal orifice, and cecal strap. Color, texture, mucosa, and anatomy of the colon were carefully examined with the scope. Findings:: Anal canal: normal Rectum: Internal hemorrhoids Sigmoid colon: normal without polyps or inflammatory changes Descending colon: normal without polyps or inflammatory changes Splenic flexure: normal Transverse colon: normal without polyps or inflammatory changes Hepatic flexure: normal Ascending colon: normal without polyps or inflammatory changes Cecum: normal Terminal ileum: not visualized Impression: Normal appearing colon Hemorrhoids Recommendations:: Reassuring examination Recommend topical creams or suppository treatment of hemorrhoids as needed Can increase fiber in diet to ensure up to 20-25 gm daily Miralax once daily if needed Complications:: none Estimated blood obtained (mL): 0
[2021-11-03 10:19] VITALS: BP 86/49; PULSE 74; RESP 18; TEMP 36.6; O2SAT 99
[2021-11-03 10:29] VITALS: BP 97/73; PULSE 87; RESP 18; O2SAT 99
[2021-11-03 10:39] VITALS: BP 109/67; PULSE 76; RESP 18; O2SAT 99
[2021-11-03 10:54] VITALS: BP 111/71; PULSE 72; RESP 18; O2SAT 99
--- NOTE | 2021-11-03 11:09 | SUR.PHASEII ---
Pt sitting in chair at bedside with assist waiting for Dr. Mike to see pt. No C/O
== END 2021-11-03 11:10 | disposition home or self-care (01) ==
PROVIDERS: PCP Internal Medicine Adolescent Medicine; Visit Provider Internal Medicine
PROC: 0DJD8ZZ Inspection of Lower Intestinal Tract, Via Natural or Artificial Opening Endoscopic (ICD-10-PCS; CPT 45378; principal; 2021-11-03 10:00)
DX: K64.9 Unspecified hemorrhoids (principal); Z79.899 Other long term (current) drug therapy; F17.210 Nicotine dependence, cigarettes, uncomplicated
CPT/HCPCS: 45378

== ENCOUNTER → 2021-11-30 11:55 | Outpatient (CLI) | payer OTHER, SELFPAY ==
[2021-11-30 13:30] LABS: Chol/HDL Ratio 6.6 (1-3.5); Cholesterol 245 mg/dl (140-200); HDL Cholesterol 37 mg/dl (40-60); Triglycerides 119 mg/dl (30-150); VLDL Cholesterol 24 mg/dL (0-40)
[2021-11-30 13:41] LABS: Direct LDL Cholesterol 147.05 mg/dL (100-129)
== END ==
PROVIDERS: PCP Internal Medicine Adolescent Medicine; Visit Provider Nurse Practitioner Obstetrics & Gynecology
DX: R53.83 Other fatigue (principal)
CPT/HCPCS: 36415; 80061

== ENCOUNTER → 2021-12-03 10:48 | Outpatient (CLI) | payer OTHER, SELFPAY ==
[2021-12-03 11:59] LABS: Chloride 101 mmol/L (98-107); Potassium 3.9 mmoL/L (3.5-5.1); Sodium 139 mmol/L (136-145)
[2021-12-03 12:01] LABS: Blood Urea Nitrogen 9 mg/dl (7-17); Estimated Glomerular Filt Rate 93 ml/min (>60); GFR (African American) 113 ML/MIN (>60)
[2021-12-03 12:02] LABS: Alanine Aminotransferase 13 U/L (12-78); Albumin Level 4.2 g/dl (3.5-5.0); Albumin/Globulin Ratio 1.8 (1.1-1.8); Alkaline Phosphatase 79 U/L (38-126); Anion Gap 13.9 mEq/L (5-15); Aspartate Amino Transferase 23 U/L (14-36); Bilirubin,Total 0.2 mg/dl (0.2-1.3); Carbon Dioxide 28 mmol/L (22.0-30.0); Globulin 2.4 g/dL (1.3-3.2); Glucose 91 mg/dl (74-100); Total Protein,Serum 6.6 g/dl (6.3-8.2)
== END ==
PROVIDERS: PCP Internal Medicine Adolescent Medicine; Visit Provider Nurse Practitioner Obstetrics & Gynecology
DX: Z79.899 Other long term (current) drug therapy (principal)
CPT/HCPCS: 36415; 80053

== ENCOUNTER 2022-01-12 13:22 | Emergency (ER) | payer OTHER, SELFPAY ==
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
[2022-01-12 13:35] VITALS: BP 121/74; PULSE 85; RESP 18; RESP 21; TEMP 37; O2SAT 99; BMI 25.0
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
[2022-01-12 14:24] VITALS: BP 121/74; PULSE 85; RESP 18; TEMP 37; O2SAT 99
== END 2022-01-12 15:44 | disposition home or self-care (01) ==
PROVIDERS: Emergency Provider Nurse Practitioner; PCP Internal Medicine Adolescent Medicine
DX: S20.211A Contusion of right front wall of thorax, initial encounter (principal); W50.0XXA Accidental hit or strike by another person, initial encounter; Y93.83 Activity, rough housing and horseplay
CPT/HCPCS: 71101; 99212; G0463

== ENCOUNTER → 2022-03-12 09:34 | Outpatient (CLI) | payer OTHER, SELFPAY ==
--- NOTE | 2022-03-12 09:39 | MR_ITS ---
FINAL REPORT CLINICAL HISTORY: PERSISTANT RIGHT NECK AND ARM PAIN. RIGHT FACE NUMBNESS. PAIN THAT GOES FROM HER UPPER BACK, INTO NECK, INTO ARMS AND AT THE BASE OF THE SKULL. FINDINGS: Multiplanar MR imaging of the cervical spine was performed without and with contrast. On the sagittal T2-weighted images, disc degeneration is seen throughout. There is fusion at C5-6. The vertebral alignment is normal. There is no evidence of fracture. No bony mass is identified. The cervical spinal cord has an unremarkable appearance without evidence of mass, edema or syrinx. There is no evidence of significant canal stenosis. C2-3: No significant canal stenosis or neural foraminal narrowing is identified. C3-4: No significant canal stenosis or neural foraminal narrowing is identified. C4-5: Annular disc bulge without significant canal stenosis or neural foraminal narrowing is identified. C5-6: Anterior fusion. No significant canal stenosis or neural foraminal narrowing is identified. C6-7: Annular disc bulge with small left foraminal disc protrusion. C7-T1: No significant canal stenosis or neural foraminal narrowing is identified. T1-2: No significant central canal stenosis or neural foraminal narrowing. No abnormal contrast enhancement is seen on the postcontrast images. IMPRESSION: Small left foraminal disc protrusion at C6-7. No abnormal contrast enhancement. Reviewed, Interpreted and Dictated by Alvaro Manrique III, MD Transcribed by Glenys Rush Authenticated and [facility]
--- NOTE | 2022-03-12 09:39 | MR_ITS ---
FINAL REPORT CLINICAL HISTORY: RIGHT FACE NUMBNESS. PAIN THAT GOES FROM HER UPPER BACK, INTO NECK, INTO ARMS AND AT THE BASE OF THE SKULL. FINDINGS: Multiplanar MR imaging of the brain was performed without contrast. There is no evidence of intracranial hemorrhage or mass. The ventricular size is normal. There is no evidence of shift of the midline structures. No area of restricted diffusion is identified. The posterior fossa and brainstem have an unremarkable appearance. Normal major vessel vascular flow voids are seen. IMPRESSION: Unremarkable brain with no focal abnormality identified. Reviewed, Interpreted and Dictated by Alvaro Manrique III, MD Transcribed by Glenys Rush Authenticated and [facility]
== END ==
DX: M50.222 Other cervical disc displacement at C5-C6 level (principal); R20.0 Anesthesia of skin
CPT/HCPCS: 70551; 72156; 76376; A9576

== ENCOUNTER → 2022-05-19 11:54 | Outpatient (CLI) | payer OTHER, SELFPAY ==
[2022-05-19 12:52] LABS: Basophils # 0.1 K/mm3 (0-0.2); Basophils % 1.5 % (0.1-2.0); Eosinophils # 0.2 K/mm3 (0.0-0.4); Eosinophils % 1.9 % (0.1-12.0); Hemoglobin 14.5 g/dL (12.2-16.2); Lymphocytes # 2.2 K/mm3 (0.7-4.5); Lymphocytes % 23.9 % (10-50); Mean Corpuscular HGB Conc 31.6 g/dL (31.8-35.4); Mean Corpuscular Volume 91.7 fl (81-99); Mean Platelet Volume 6.8 fl (7.4-10.4); Monocytes # 0.3 K/mm3 (0.1-1.0); Monocytes % 3.3 % (1.7-9.3); Neutrophils # 6.4 K/mm3 (1.8-7.8); Neutrophils % 69.4 % (37.0-80.0); Platelet Count 201 K/mm3 (142-424); Red Blood Count 5.01 M/mm3 (4.20-5.40); Red Cell Distribution Width 13.3 % (11.5-17.5); White Blood Count 9.2 K/mm3 (4.8-10.8)
[2022-05-19 13:41] LABS: Chloride 103 mmol/L (98-107); Sodium 136 mmol/L (136-145)
[2022-05-19 13:42] LABS: Potassium 4.1 mmoL/L (3.5-5.1)
[2022-05-19 13:44] LABS: Alanine Aminotransferase 16 U/L (12-78); Albumin/Globulin Ratio 1.7 (1.1-1.8); Alkaline Phosphatase 71 U/L (38-126); Anion Gap 10.1 mEq/L (5-15); Aspartate Amino Transferase 25 U/L (14-36); Bilirubin,Total 0.6 mg/dl (0.2-1.3); Blood Urea Nitrogen 11 mg/dl (7-17); Carbon Dioxide 27 mmol/L (22.0-30.0); Cholesterol 184 mg/dl (140-200); Estimated Glomerular Filt Rate 93 ml/min (>60); GFR (African American) 112 ML/MIN (>60); Globulin 2.4 g/dL (1.3-3.2); Total Protein,Serum 6.4 g/dl (6.3-8.2); Triglycerides 97 mg/dl (30-150); VLDL Cholesterol 19 mg/dL (0-40)
[2022-05-19 13:45] LABS: Chol/HDL Ratio 4.5 (1-3.5); Glucose 79 mg/dl (74-100); HDL Cholesterol 41 mg/dl (40-60)
[2022-05-20 08:30] LABS: HSV 2 IgG, Type Spec <0.91 index (0.00-0.90)
[2022-05-20 10:11] LABS: HIV Screen 4th Generation wRfx Non Reactive (Non Reactive)
[2022-05-20 10:12] LABS: Rapid Plasma Reagin Ab Titer Non Reactive (NonRea<1:1)
[2022-05-21 16:38] LABS: Hep A Ab, IgM Negative; Hepatitis B Core Antibody IgM Negative; Hepatitis B Surface Antigen Negative; Hepatitis C Antibody Non Reactive
== END ==
PROVIDERS: PCP Internal Medicine Adolescent Medicine; Visit Provider Nurse Practitioner Obstetrics & Gynecology
DX: Z00.00 Encounter for general adult medical examination without abnormal findings (principal); Z72.51 High risk heterosexual behavior
CPT/HCPCS: 36415; 80053; 80061; 80074; 85025; 86593; 86695; 86703; 86790; G0432

== ENCOUNTER → 2022-05-27 08:00 | Outpatient (CLI) | payer OTHER, SELFPAY ==
--- NOTE | 2022-05-27 08:00 | MM_ITS ---
PROCEDURE INFORMATION: Exam: Bilateral Screening 3D Mammography Exam date and time: 05/27/2022 7:56 AM Age: 42 years old Clinical indication: Screening examination TECHNIQUE: Imaging protocol: Bilateral Screening tomosynthesis and 2D mammography including computer-aided detection (CAD) when performed. COMPARISON: No relevant prior studies available. FINDINGS: MAMMOGRAPHY: Breast composition: The breasts are heterogeneously dense, which may obscure small masses. Mass: None. Architectural distortion: None. Calcifications: No suspicious calcifications. Asymmetric density: None. Skin thickening: None. Axillary adenopathy: None. IMPRESSION: No mammographic evidence of malignancy. Annual screening is recommended unless otherwise clinically indicated. ASSESSMENT: BI-RADS Category 1: Negative
== END ==
PROVIDERS: PCP Internal Medicine Adolescent Medicine; Visit Provider Nurse Practitioner Obstetrics & Gynecology
DX: Z12.31 Encounter for screening mammogram for malignant neoplasm of breast (principal)
CPT/HCPCS: 77063; 77067

== ENCOUNTER 2022-07-15 15:03 | Emergency (ER) | payer OTHER, SELFPAY ==
[2022-07-15 15:10] VITALS: BP 129/80; PULSE 77; RESP 18; TEMP 36.6; O2SAT 98; BMI 27.8
--- NOTE | 2022-07-15 15:25 | EXP.UTC ---
Discharge Plan Disposition Patient Disposition: Home, Self-Care Condition: Good Prescriptions Prescriptions: New mupirocin 2 % ointment 1 applic topical TID Qty: 22 0RF No Action loratadine [Claritin] 10 mg tablet 10 mg PO DAILY cholecalciferol (vitamin D3) 50 mcg (2,000 unit) capsule 50 mcg PO DAILY B-complex with vitamin C Capsule 1 cap PO DAILY magnesium 30 mg tablet 30 mg PO DAILY clobetasol 0.05 % solution 1 ml TOPICAL DAILY duloxetine 60 mg capsule,delayed release(DR/EC) 60 mg PO .2 tablets QD Label Comments: TAKE 2 CAPSULES BY MOUTH ONCE DAILY pregabalin 150 mg capsule 150 mg PO TID Label Comments: TAKE 1 CAPSULE BY MOUTH THREE TIMES DAILY bupropion HCl 150 mg tablet extended release 24 hr 150 mg PO DAILY Qty: 30 11RF spironolactone 100 mg tablet See Rx Instructions .ROUTE .COMPLEX Qty: 30 11RF Dose Instruction: TAKE 1 TABLET BY MOUTH ONCE DAILY FOR EDEMA Rx Instructions: TAKE 1 TABLET BY MOUTH ONCE DAILY FOR EDEMA valacyclovir [Valtrex] 1 gram tablet 1,000 mg PO DAILY Referrals Follow up/Referrals: Gisela Cunningham APRN [Primary Care Provider] - See instructions Activity Restrictions/Add. Instructions Additional Instructions/Restrictions: advised to eat a soft diet for two to three days, rinse the mouth with water after eating, avoid spicy or salty foods until the wound is healed (three to five days), and avoid the use of straws Clinical Impressions Clinical Impression: Laceration Instructions Patient Instructions: DI for Minor Laceration Discharge ED Provider: Carlos Wolf [facility] General Stated complaint: right lip cut Mode of Arrival: Ambulatory Source of Information: Patient Limitations: No Limitations Time Seen by Provider: 07/15/22 15:15 Description of Symptoms (Recalled from Triage Doc. by RN): PATIENT STATES SHE CUT THE RIGHT CORNER OF HER MOUTH WITH A RAZOR APPROX 1 WEEK AGO AND NOW EVERY TIME SHE EATS SHE STATES IT BUSTS OPEN HEENT Symptoms (Recalled from RN notes): No Resp Symptoms (Recalled from RN notes): No Skin Symptoms (Recalled from RN notes): Yes MS Symptoms (Recalled from RN notes): No Functional Status (Recalled from RN notes): WNL History of Present Illness Provider Complaint: Pt states that she cut the right corner of her mouth with a razor. She reports that the site was healing and had scabbed over, but she picked the scab off and now every time she eats it seems to pull apart. Related Data Home Medications Medication Instructions Recorded Confirmed loratadine 10 mg tablet (Claritin) 10 mg PO DAILY Allergy symptoms 03/13/18 05/18/22 B-complex with vitamin C 1 cap PO DAILY Supplement 12/09/20 05/18/22 cholecalciferol (vitamin D3) 50 50 mcg PO DAILY Supplement 12/09/20 05/18/22 mcg (2,000 unit) capsule magnesium 30 mg tablet 30 mg PO DAILY Supplement 12/09/20 05/18/22 clobetasol 0.05 % scalp solution 1 ml topical DAILY exzema 06/08/21 05/18/22 valacyclovir 1 gram tablet 1,000 mg PO DAILY hsv 11/02/21 05/18/22 (Valtrex) duloxetine 60 mg capsule,delayed 60 mg PO .2 tablets QD 05/18/22 05/18/22 release pregabalin 150 mg capsule 150 mg PO TID 05/18/22 05/18/22 Previous Rx's Medication Instructions Recorded bupropion HCl 150 mg 24 hr tablet, 150 mg PO DAILY #30 tabs 11/17/21 extended release spironolactone 100 mg tablet See Rx Instructions .Route 06/28/22 .COMPLEX #30 tabs mupirocin 2 % topical ointment 1 applic topical TID #22 grams 07/15/22 Allergies Allergy/AdvReac Type Severity Reaction Status Date / Time No Known Allergies Allergy Verified 05/18/22 15:18 Worker's Comp Is this a Worker's Comp case?: No [facility] Disclaimer: The information contained in this section may have been updated after the patient was seen, as this information can be updated by other users. Medical History (Updated 07/15/22 @ 15:30 by Gisela Cunningham APRN) A
[2022-07-15 15:30] VITALS: BP 129/80; PULSE 77; RESP 18; TEMP 36.6; O2SAT 98
== END 2022-07-15 15:33 | disposition home or self-care (01) ==
PROVIDERS: Emergency Provider Internal Medicine Adolescent Medicine; PCP Nurse Practitioner Family
DX: S01.511A Laceration without foreign body of lip, initial encounter (principal); F17.210 Nicotine dependence, cigarettes, uncomplicated; W26.8XXA Contact with other sharp object(s), not elsewhere classified, initial encounter
CPT/HCPCS: 99212; 99214; G0463

== ENCOUNTER → 2022-07-27 07:14 | Outpatient (CLI) | payer OTHER, SELFPAY ==
--- NOTE | 2022-07-27 07:17 | CT_ITS ---
FINAL REPORT TECHNIQUE: Axial CT images of the cervical spine were obtained without contrast. Sagittal and coronal reformatted images were also obtained. This study was performed with techniques to keep radiation doses as low as reasonably achievable (ALARA). Individualized dose reduction techniques using automated exposure control or adjustment of mA and/or kV according to the patient's size were employed. CLINICAL HISTORY: CERVICALGIA,, pain hx of surgery. workers comp COMPARISON: CT neck soft tissue 07/22/2019 FINDINGS: There is no evidence of fracture or dislocation. Fusion at C5-6. The bony alignment is normal. The disc spaces are preserved. There is no evidence of canal stenosis. No significant neuroforaminal narrowing. No paraspinous soft tissue abnormality is seen. Limited images of the upper thorax are unremarkable. IMPRESSION: Stable appearance of cervical spine compared to the prior study Reviewed, Interpreted and Dictated by Alvaro Manrique III, MD Transcribed by Naida Avila Authenticated and [facility]
== END ==
PROVIDERS: PCP Internal Medicine Adolescent Medicine; Visit Provider Orthopaedic Surgery
DX: M50.122 Cervical disc disorder at C5-C6 level with radiculopathy (principal); M25.519 Pain in unspecified shoulder
CPT/HCPCS: 72125

== ENCOUNTER → 2022-10-06 10:52 | Outpatient (CLI) | payer OTHER, SELFPAY ==
--- NOTE | 2022-10-06 10:56 | FL_ITS ---
FINAL REPORT CLINICAL HISTORY: dysphagia ft; 1:57 DAP: 120.53 FINDINGS: MODIFIED BARIUM SWALLOW HISTORY: Dysphagia. FINDINGS: Fluoroscopy was provided for the speech pathologist to evaluate the swallowing mechanism. The patient was given several different consistencies of barium while the swallow was visualized fluoroscopically. The report of the speech pathologist should be consulted prior to making dietary decisions. FLUOROSCOPY TIME: 1 minute, 57 seconds FLUORO DOSE: 120.53 DAP in uGym2 IMAGES SAVED: 15 IMPRESSION: Modified barium swallow under fluoroscopic guidance. Please see speech pathologist's report for further details and dietary recommendations. Reviewed, Interpreted and Dictated by Harvinder Frias MD Transcribed by Jossie Escobedo PA-C Authenticated and [facility]
--- NOTE | 2022-10-06 11:46 | HMH.SLMBS2 ---
Speech & Language Evaluation Speech/Language Mod Barium Swallow Start: 10/06/22 11:23 Freq: once Status: Complete Protocol: Document 10/06/22 11:23 MARIO (Rec: 10/06/22 11:46 MARIO [id number]) General Information General Current Food Consistency Regular,Thin Liquids Dentition Good Dentition Oxygen Status Room Air Facial Symmetry Symmetrical Patient Orientation Person,Place,Time,Situation Ability to Follow Directions Excellent Communication Ability No Impairment MBS Recommendations Diet Dietary Recommendations Regular,Thin Liquids Treatment/Strategies Strategy/Precaution Recommend Sitting Upright (90 deg),Small Bites and Sips,Alternate Liquids/Solids Referrals/Other Recommended Referrals GI Consult Mod Barium Swallow Impressions Summary and Impressions Oral Phase Impression No Impairment (WFL) Oral Phase Summary Functional oral phase of swallowing. Adequate mastication of solids was noted. Pt demonstrated adequate oral manipulation and bolus formation. AP transit appears timely. There is premature spillage with thin liquids, however, given adequate manipulation of the bolus this is noted to be a variation of normal. Tongue strength and control is WFL. Pharyngeal Phase Impression Mild Impairment Pharyngeal Phase Summary Mild pharyngeal dysfunction. No aspiration or penetration present during the study. Mildly impaired bolus flow around hardware where ACDF procedure was completed at C5- 6. This results in mild pharyngeal residue at and just below the UES. Pt is able to decrease but not completely clear this residue. Given it is below the laryngeal vestibule, it does not pose an aspiration risk. No other significant oral residue is noted. Adequate hyolaryngeal movement and pharyngeal constriction with all consistencies. BOT retraction
== END ==
PROVIDERS: PCP Internal Medicine Adolescent Medicine; Visit Provider Internal Medicine Adolescent Medicine
DX: R13.13 Dysphagia, pharyngeal phase (principal)
CPT/HCPCS: 70371; 92611

== ENCOUNTER 2022-11-18 10:53 | Day surgery (SDC) | payer OTHER, SELFPAY ==
[2022-11-15 14:40] VITALS: BMI 29.0
--- OUTSIDE RECORDS SUMMARY | 2022-11-18 10:55 | XMS_ITS | Continuity of Care Document ---
Author Name Unknown Organization [facility] Address [address] [place] [address] Phone Care Team Providers Care Classification Inspector Name Role Phone Kemal BUENROSTRO, Kiara Unavailable Unavailable Allergies, Adverse Reactions, Alerts Substance Reaction Status Criticality No Known Allergies Active No Inform ation Medications Medication Instructions Dosage Effective Dates (start - stop) Status Comments tramadol 50 mg tablet take 1 tablet by oral route every 8 hours as needed 50 MG - Active must last 30 days Baclofen 10 MG Oral Tablet Take 1 tablet by mouth twice daily - Active Diclofenac Potassium 50 MG Oral Tablet Take 1 tablet by mouth twice daily - Active Ibuprofen 600 MG Oral Tablet Take 1 tablet by mouth twice daily - Active Medrol (River) 4 mg tablets in a dose pack take by Oral route take as directed Not Available - Active hydrocodone 7.5 mg-acetaminophen 325 mg tablet take 1 - 2 Tablet by oral route every 4 - 6 hours as needed for pain 1-2 Tablet - Active
[2022-11-18 11:11] VITALS: BP 114/69; PULSE 72; RESP 18; TEMP 37; O2SAT 97
--- NOTE | 2022-11-18 11:28 | P.PNANES_ITS ---
[facility] Disclaimer: The information contained in this section may have been updated after the patient was seen, as this information can be updated by other users. Medical History Allergies Asthma Eczema Migraine Urinary tract infection Surgical History History of colonoscopy History of hysterectomy History of neck surgery History of tonsillectomy Family History Other Family history of hypertension Social History Smoking Status: Current every day smoker tobacco type: cigarettes packs per day: 1 second hand exposure: No alcohol intake: never substance use type: denies use current occupational status: employed Travel in the last 8 weeks: None caffeine: Yes [facility] Anesthesia Checklist Patient Identification Patient Identification: Arm Band Structural Data Admitted From: Home Planned Operative Procedure/s: EGD Consent for Planned Operative Procedure(s) Verified: Yes Verified Documents: Surgical Consent and History and Physical NPO Status Verified Time NPO: 00:00 Additional verifications Anesthesia Reactions: No Airway Assessment Mallampati Score:: Class II C-Spine Mobility Assessed: Yes TMJ Mobility Assessed: Yes Dentition: Good Dentition Neurological Assessment Level of Consciousness: Awake and Alert Anesthesia Plan Anesthesia Risk discussed: Yes Anesthesia Plan: Verified ASA Class: II Anesthesia Type: MAC
--- NOTE | 2022-11-18 11:45 | HMH.SCOPE ---
Procedure: Date: 11/18/22 Patient Date of :: 1980 Procedure Performed:: Esophagogastroduodenoscopy with biopsies Indications:: Patient presents for upper endoscopy. She is a 42-year-old female referred by Carlos Wolf and seen in the office on 11/03/2022. She gives a history of some dysphagia type symptoms. This seems to be more cervical dysphagia. She has had this ongoing for about 2 years. She has had a previous cervical fusion. She describes her symptoms worse with thicker liquids. Interestingly she states that her symptoms seem to be worse when she is more active. She did have a modified barium swallow which revealed mild impairment of the pharyngeal phase. She has never had upper endoscopy. I felt it reasonable to proceed with upper endoscopy as the next step with assessment of the overall anatomy and biopsies to assess for H. pylori. However if this is unremarkable her symptoms could be functional or related to proximal esophageal, pharyngeal pathology which would be difficult to assess with flexible esophagogastroduodenoscopy and she could require ENT evaluation or gastroenterology evaluation for functional assessment. Performing Provider:: Alvaro Ayala MD Referring Provider:: Carlos Wolf MD Sedation:: MAC sedation Procedure:: Patient history was obtained and appropriate physical examination was performed. Patient's medications and allergies were reviewed. Informed consent was obtained after explaining the benefits, alternatives, and risks of the procedure including, but not limited to, bleeding, perforation, missed lesions, and adverse reaction to anesthesia medications. Patient was transported to endoscopy procedure room. Patient was connected to monitoring devices. Throughout the procedure the patient's blood pressure, pulse, and oxygen saturations were monitored continuously. Patient identification and planned procedure were verified by the staff. Patient was positioned in lateral decubitus position. Olympus endoscope was inserted via the oropharynx. Esophagus was cannulated. There was some minor tortuosity consistent with mild esophageal dysmotility. Gastroesophageal junction was encountered at approximately 42 cm from the incisors. There was no evidence of any stricture. Stomach was cannulated and insufflated. Retroflexion revealed no evidence of any appreciable hiatal hernia. Interestingly there was some linear mild erosive gastritis within the antrum. Several biopsies were obtained. Pylorus was traversed. In the second and third portion of the duodenum there were findings of atrophic mucosa and biopsies were obtained. Endoscope was withdrawn into the distal esophagus and couple biopsies were obtained at the gastroesophageal junction. Distal esophageal biopsies were obtained to evaluate for microscopic esophagitis. Endoscope was withdrawn into the proximal pharynx with careful inspection and there was not noted to be any definitive mass or stricture. Endoscope was reinserted into the stomach and it was desufflated. Endoscope was withdrawn. . Findings:: Mild esophageal dysmotility findings Gastroesophageal junction at 42 cm Diffuse nonerosive gastropathy with some linear mild erosive gastritis within the antrum, biopsied Atrophic duodenal mucosa in second and third portions of duodenum, biopsied Recommendations:: Follow-up on the histopathology and H. pylori status. If symptoms persist and biopsies unremarkable could require ENT and/or gastroenterology evaluation. Complications:: None immediately apparent Estimated blood obtained (mL): 2 Colonoscopy Component Colonoscopy Component Was a colonoscopy performed during today's procedure?: No
[2022-11-18 11:50] VITALS: O2SAT 100
[2022-11-18 12:04] VITALS: BP 85/49; PULSE 69; RESP 17; TEMP 36.2; O2SAT 97
[2022-11-18 12:14] VITALS: BP 93/57; PULSE 68; RESP 18; O2SAT 98
[2022-11-18 12:24] VITALS: BP 100/67; PULSE 68; RESP 18; O2SAT 97
== END 2022-11-18 12:37 | disposition home or self-care (01) ==
PROVIDERS: PCP Internal Medicine Adolescent Medicine; Visit Provider Surgery
PROC: 0DJ08ZZ Inspection of Upper Intestinal Tract, Via Natural or Artificial Opening Endoscopic (ICD-10-PCS; CPT 43235; principal; 2022-11-18 12:00)
DX: K22.4 Dyskinesia of esophagus (principal); K29.50 Unspecified chronic gastritis without bleeding; K21.00 Gastro-esophageal reflux disease with esophagitis, without bleeding
CPT/HCPCS: 43239

== ENCOUNTER → 2022-11-21 14:14 | Outpatient (CLI) | payer OTHER, SELFPAY | PROVIDERS: PCP Internal Medicine Adolescent Medicine; Visit Provider Internal Medicine Adolescent Medicine | DX: G47.33 Obstructive sleep apnea (adult) (pediatric) (principal); R06.83 Snoring | CPT/HCPCS: 95806 ==

== ENCOUNTER → 2023-01-19 10:48 | Outpatient (CLI) | payer OTHER, SELFPAY ==
[2023-01-19 11:21] LABS: Basophils # 0.1 K/mm3 (0-0.2); Basophils % 0.8 % (0.1-2.0); Eosinophils # 0.1 K/mm3 (0.0-0.4); Eosinophils % 1.9 % (0.1-12.0); Hematocrit 47.9 % (37.0-47.0); Hemoglobin 16.4 g/dL (12.2-16.2); Lymphocytes # 1.9 K/mm3 (0.7-4.5); Lymphocytes % 26.7 % (10-50); Mean Corpuscular HGB Conc 34.3 g/dL (31.8-35.4); Mean Corpuscular Hemoglobin 31.1 pg (27.0-31.2); Mean Corpuscular Volume 90.6 fl (81-99); Mean Platelet Volume 7.7 fl (7.4-10.4); Monocytes # 0.3 K/mm3 (0.1-1.0); Neutrophils # 4.7 K/mm3 (1.8-7.8); Neutrophils % 66.6 % (37.0-80.0); Platelet Count 197 K/mm3 (142-424); Red Blood Count 5.28 M/mm3 (4.20-5.40); Red Cell Distribution Width 13.5 % (11.5-17.5); White Blood Count 7.1 K/mm3 (4.8-10.8)
[2023-01-19 11:45] LABS: Chloride 102 mmol/L (98-107); Potassium 4.4 mmoL/L (3.5-5.1); Sodium 137 mmol/L (136-145)
[2023-01-19 11:48] LABS: Alanine Aminotransferase 18 U/L (12-78); Albumin Level 4.3 g/dl (3.5-5.0); Albumin/Globulin Ratio 1.6 (1.1-1.8); Alkaline Phosphatase 75 U/L (38-126); Anion Gap 8.4 mEq/L (5-15); Aspartate Amino Transferase 27 U/L (14-36); Bilirubin,Total 0.4 mg/dl (0.2-1.3); Blood Urea Nitrogen 14 mg/dl (7-17); Calcium 9.3 mg/dl (8.4-10.2); Carbon Dioxide 31 mmol/L (22.0-30.0); Estimated Glomerular Filt Rate 69 ml/min (>60); GFR (African American) 84 ML/MIN (>60); Globulin 2.7 g/dL (1.3-3.2); Glucose 90 mg/dl (74-100)
[2023-01-19 16:47] LABS: Vitamin B12 823 pg/mL (239-931)
[2023-01-19 16:48] LABS: Folate > 20.00 ng/mL
[2023-01-19 17:58] LABS: Thyroid Stimulating Hormone 2.07 uIU/mL (0.465-4.68)
== END ==
PROVIDERS: PCP Internal Medicine Adolescent Medicine; Visit Provider Specialist
DX: R53.82 Chronic fatigue, unspecified (principal)
CPT/HCPCS: 36415; 80053; 82607; 82746; 84443; 85025

== ENCOUNTER 2023-02-16 12:37 | Day surgery (SDC) | payer OTHER, SELFPAY ==
[2023-02-14 10:18] VITALS: BMI 29.0
[2023-02-16] VITALS (7 sets, daily range): BP systolic 97–118; BP diastolic 60–69; PULSE 62–76; RESP 16–18; TEMP 36.5–36.6; O2SAT 95–100
[2023-02-16] MEDS: LACTATED RINGERS 1000ML 1,000 ML 100 ML IV (12:47)
--- NOTE | 2023-02-16 12:58 | P.PNANES_ITS ---
[facility] Disclaimer: The information contained in this section may have been updated after the patient was seen, as this information can be updated by other users. Medical History Allergies Asthma Eczema Migraine Urinary tract infection Surgical History History of colonoscopy History of esophagogastroduodenoscopy (EGD) History of hysterectomy History of neck surgery History of tonsillectomy Family History Other Family history of hypertension Social History Smoking Status: Current every day smoker tobacco type: cigarettes packs per day: 1 second hand exposure: No alcohol intake: never substance use type: denies use current occupational status: unemployed Travel in the last 8 weeks: None household members: children housing: house marital status: caffeine: Yes [facility] Anesthesia Checklist Patient Identification Patient Identification: Arm Band Structural Data Admitted From: Home Planned Operative Procedure/s: EGD Consent for Planned Operative Procedure(s) Verified: Yes Verified Documents: Surgical Consent and History and Physical NPO Status Verified Time NPO: 00:00 Additional verifications Anesthesia Reactions: No Airway Assessment Mallampati Score:: Class II C-Spine Mobility Assessed: Yes TMJ Mobility Assessed: Yes Dentition: Good Dentition Neurological Assessment Level of Consciousness: Awake and Alert Anesthesia Plan Anesthesia Risk discussed: Yes Anesthesia Plan: Verified ASA Class: II Anesthesia Type: MAC
--- NOTE | 2023-02-16 13:20 | HMH.SCOPE ---
Procedure: Date: 02/16/23 Patient Date of :: 1980 Procedure Performed:: EGD & Dilation Indications:: Dysphagia Performing Provider:: Rohith Stafford MD Referring Provider:: Madelin Stafford APRN Sedation:: Propofol Procedure:: The gastroscope was gently passed through the incisoral orifice into the oral cavity and under direct visualization the esophagus was intubated. The endoscope was passed down the esophagus, through the stomach, and into the duodenum. Color, texture, mucosa, and anatomy of the esophagus, stomach, and duodenum were carefully examined with the scope. Findings:: Oropharynx: normal Esophagus: normal, no evidence of external obstruction or strictures, empiric dilation therapy performed with 58F bougie dilator EG Junction: intact at 40 cm Cardia: normal Fundus: normal Body: normal Antrum: normal Duodenal bulb: normal Duodenum (second and third portion): normal Impression: Symptomatic dysphagia treated with bougie dilation Recommendations:: F/U with referring provider as clinically indicated. Complications:: None Estimated blood obtained (mL): 0 Colonoscopy Component Colonoscopy Component Was a colonoscopy performed during today's procedure?: No
== END 2023-02-16 14:15 | disposition home or self-care (01) ==
PROVIDERS: PCP Internal Medicine Adolescent Medicine; Visit Provider Internal Medicine Gastroenterology
PROC: 0DJ08ZZ Inspection of Upper Intestinal Tract, Via Natural or Artificial Opening Endoscopic (ICD-10-PCS; CPT 43235; principal; 2023-02-16 13:30)
DX: R13.10 Dysphagia, unspecified (principal)
CPT/HCPCS: 43248

== ENCOUNTER 2023-05-08 08:50 | Outpatient (CLI) | payer OTHER, SELFPAY ==
--- NOTE | 2023-05-08 08:55 | MR_ITS ---
FINAL REPORT TECHNIQUE: Multiplanar and multisequence imaging of the cervical spine was obtained. 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 HX NECK SURGERY 2020. BILATERAL ARM PAIN, NUMBNESS AND [place]INGL[place]. NUMBNESS ON RIGHT SIDE OF FACE. COMPARISON: 07/27/2022 FINDINGS: There is reversal of the cervical lordosis. There are postoperative changes from anterior fusion at C5-6. Vertebral body height is preserved. Signal intensity within the substance of the spinal cord is normal. Bone marrow signal intensity is within normal limits. No acute paraspinal abnormality. C2/3: There is no focal disc herniation, central stenosis or neural foraminal narrowing. C3/4: There is no focal disc herniation, central stenosis or neural foraminal narrowing. C4/5: Annular disc bulge. No central canal stenosis. There may be mild left neuroforaminal narrowing.. C5/6: Fusion. No central canal stenosis or neuroforaminal narrowing.. C6/7: There is no focal disc herniation, central stenosis or neural foraminal narrowing. C7/T1: There is no focal disc herniation, central stenosis or neural foraminal narrowing. IMPRESSION: Postoperative changes from anterior fusion with reversal of cervical lordosis. Probable left neuroforaminal narrowing at L4-5. Reviewed, Interpreted and Dictated by Randa Colunga MD Transcribed by Naida Avila Authenticated and [facility]
== END 2023-05-08 23:59 ==
LOC: RAD 08:51
PROVIDERS: PCP Internal Medicine Adolescent Medicine; Visit Provider Orthopaedic Surgery
DX: M54.50 Low back pain, unspecified (principal)
CPT/HCPCS: 72141; 76376

== ENCOUNTER 2023-06-12 10:57 | Outpatient (POV) | payer OTHER, SELFPAY ==
[2023-06-12 11:47] VITALS: BP 126/85; PULSE 71; RESP 18; O2SAT 97; BMI 29.0
--- NOTE | 2023-06-12 12:50 | EXP.PAIN.OV ---
HPI Data of Consult Patient: new to practice Consult date: 06/12/23 Requesting Physician: Stacie Charles APRN Primary Care Provider: Carlos Wolf MD Consult Narrative Reason for consult: Neck pain, bilateral shoulder and arm pain History of present illness: Ms. Goodman is a 43 year old female who presents today as a new patient. She is a referral from Dr. Schmidt's office. Today she rates her pain an 8 out of 10. Patient states her pain is all in her neck with radiating symptoms to her bilateral shoulders and arms. She does describe this as an aching, throbbing sensation with numbness and tingling into her extremities. Patient states this is all gone on since an accident that occurred a few years ago. She states that she ended up having to have a cervical fusion of C5-C6 and that this did help some however she continues to have a aching, throbbing sensation with numbness and tingling and burning sensations. Patient does state the pain is worse with increased activity and sometimes rest can help. Patient has tried [id number]-[id number] medications such as Tylenol and ibuprofen along with heat and ice and topicals with minimal relief. Patient states that she has had 6 weeks of PT before and after her surgery with no additional relief however made her symptoms worse. Patient states that she did also have 3 injections before surgery and 1 after done at [facility] and states it did help for approximately 2 weeks. Patient states that [facility] was never a full-time office she went to and that insurance had only approved 2 visits. She states that she was seeing [facility] however the provider there was moving to [place] and that she was trying to find a different office to go to. Patient states that she had been prescribed diclofenac 50 mg twice a day, baclofen 10 mg twice a day and Lyrica 200 mg 3 times a day and that at the new office she went to 1 day do not like to do medications. Patient states that she did just run out of her Lyrica about a day and a half ago. Patient states she is interested if we could provide these medications. She states that she was also on tramadol however it sometimes would help or not. Patient is interested in any help we may be able to provide. Her Jose has been reviewed and is appropriate. CC: Stacie Charles APRN [facility] Disclaimer: The information contained in this section may have been updated after the patient was seen, as this information can be updated by other users. Medical History Allergies Asthma Eczema Migraine Urinary tract infection Surgical History History of colonoscopy History of esophagogastroduodenoscopy (EGD) History of hysterectomy History of neck surgery History of tonsillectomy Family History Other Family history of hypertension Social History (Updated 06/12/23 @ 11:48 by Belen Velázquez RN) Smoking Status: Current every day smoker tobacco type: cigarettes packs per day: 1 second hand exposure: No alcohol intake: never substance use type: denies use current occupational status: unemployed Travel in the last 8 weeks: None household members: children housing: house marital status: caffeine: Yes Review of Systems Review of Systems Review of systems:: pertinent systems reviewed and negative unless documented below Review of systems (narrative): Review of Systems: General: No recent weight changes, no fever, no sleep disturbances Respiratory: No cough, no shortness of air, no recurring pulmonary infections Cardiovascular/peripheral vascular: No chest pain, no palpitations, no edema, no shortness of breath Gastrointestinal: No new onset incontinence, normal bowel movements reported Genitourinary: No new onset incontinence Musculoskeletal: Neck pain, bilateral shoulder pain, bilateral arm/hand pain Psychiatric: [Normal mood/affect] Neurological: [Denies weakness in extremities], [denies balance issues] Meds Home Medications and Allergies Home Medications Medication Instructions Recorded Confirmed Type loratadine 10 mg tablet (Claritin) 10 mg PO DAILY Allergy symptoms 03/13/18 06/12/23 History B-complex with vitamin C 1 cap PO DAILY Supplement 12/09/20 06/12/23 History cholecalciferol (vitamin D3) 50 50 mcg PO DAILY Supplement 12/09/20 06/12/23 History mcg (2,000 unit) capsule magnesium 30 mg tablet 30 mg PO DAILY Supplement 12/09/20 06/12/23 History clobetasol 0.05 % scalp solution 1 ml topical DAILY exzema 06/08/21 06/12/23 History duloxetine 60 mg capsule,delayed 60 mg PO .2 tablets QD Depression 05/18/22 06/12/23 History release famotidine 20 mg tablet 20 mg PO DAILY Acid Reflux 11/03/22 06/12/23 History tramadol 50 mg tablet 50 mg PO TID Pain 11/15/22 06/12/23 History baclofen 10 mg tablet 10 mg PO BID 12/22/22 06/12/23 History diclofenac potassium 50 mg tablet 50 mg PO BID 12/22/22 06/12/23 History pregabalin 200 mg capsule 200 mg PO TID 12/22/22 06/12/23 History acetaminophen 500 mg tablet 500 mg PO Q6H PRN Pain 01/19/23 06/12/23 History (Tylenol Extra Strength) bupropion HCl 150 mg 24 hr tablet, 300 mg PO DAILY Depression 01/19/23 06/12/23 History extended release fluticasone furoate 50 1 inh inhalation DAILY 01/19/23 06/12/23 History mcg/actuation blister powder for inhalation valacyclovir 1 gram tablet 1,000 mg PO DAILY PRN hsv 01/19/23 06/12/23 History (Valtrex) spironolactone 100 mg tablet See Rx Instructions .Route 06/06/23 06/12/23 Rx .COMPLEX #30 tabs New Prescriptions to Start Prescriptions: Allergies Allergy/AdvReac Type Severity Reaction Status Date / Time No Known Allergies Allergy Verified 03/02/23 09:15 Objective Vital signs: Pulse Resp BP Pulse Ox O2 Del Method 71 18 126/85 97 Room Air 06/12/23 11:47 06/12/23 11:47 06/12/23 11:47 06/12/23 11:47 06/12/23 11:47 Narrative: Physical Exam: General: Alert and oriented x3, no acute distress, pleasant and cooperative Lungs: Respirations even and unlabored, symmetrical chest expansion Eyes: PERRL Musculoskeletal: Flexion and extension of cervical [spine] somewhat guarded secondary to pain, [antalgic gait noted] positive Spurling's test Neurological: Speech clear, no gross sensory deficit Additional findings Additional findings: FINDINGS: There is reversal of the cervical lordosis. There are postoperative changes from anterior fusion at C5-6. Vertebral body height is preserved. Signal intensity within the substance of the spinal cord is normal. Bone marrow signal intensity is within normal limits. No acute paraspinal abnormality. C2/3: There is no focal disc herniation, central stenosis or neural foraminal narrowing. C3/4: There is no focal disc herniation, central stenosis or neural foraminal narrowing. C4/5: Annular disc bulge. No central canal stenosis. There may be mild left neuroforaminal narrowing.. C5/6: Fusion. No central canal stenosis or neuroforaminal narrowing.. C6/7: There is no focal disc herniation, central stenosis or neural foraminal narrowing. C7/T1: There is no focal disc herniation, central stenosis or neural foraminal narrowing. IMPRESSION: Postoperative changes from anterior fusion with reversal of cervical lordosis. Probable left neuroforaminal narrowing at L4-5. Reviewed, Interpreted and Dictated by Randa Colunga MD Transcribed by Naida Avila Authenticated and [facility] Assessment and Plan *Assessment and plan (1) Degenerative disc disease, cervical: Status: Acute Category: Medical Code(s): M50.30 - Other cervical disc degeneration, unspecified cervical region (2) Cervical radiculopathy: Status: Acute Category: Medical Code(s): M54.12 - Radiculopathy, cervical region (3) History of fusion of cervical spine: Status: Acute Category: Surgical Code(s): Z98.1 - Arthrodesis status Plan DidPatient is experiencing significant pain in her neck with radiating symptoms down into her upper extremities. Patient did have limited range of motion of her cervical spine and a positive Spurling's test. I have discussed with patient that she may benefit from cervical epidural steroid injection. Risk and benefits were discussed with the patient and she would like to proceed forward with this plan of care. States that the last injection she got in her cervical spine did provide 50% relief lasting 2 weeks. She states that this injection was done at the C7-T1 level. I will order the patient a compounded cream. Patient has tried and failed conservative therapies. Patient will be scheduled for a LEIGHA C6-C7 under fluoroscopy. I have discussed with the patient that I will send in refills of her diclofenac 50 mg twice a day, baclofen 10 mg twice a day and Lyrica 200 mg 3 times daily and provide a 1 month supply of this medication. I have counseled her that we will want to confirm that she is not doubling up on these medication from an outside provider. If this becomes an issue we may not prescribe these again. Patient acknowledges understanding and agrees with this plan of care. Patient has been instructed to contact the clinic with any concerns before the next appointment. Dr. Sage has reviewed this note and agrees with this plan of care. This note was dictated using voice recognition software and make contain errors or omissions.
== END 2023-06-12 23:59 | disposition home or self-care (01) ==
PROVIDERS: PCP Internal Medicine Adolescent Medicine; Visit Provider Nurse Practitioner Family
DX: M50.123 Cervical disc disorder at C6-C7 level with radiculopathy (principal); Z98.1 Arthrodesis status; M43.22 Fusion of spine, cervical region
CPT/HCPCS: 99202; G0463

== ENCOUNTER 2023-06-27 09:55 | Day surgery (SDC) | payer OTHER, SELFPAY ==
[2023-06-27 10:10] VITALS: BP 150/86; PULSE 86; RESP 18; O2SAT 99; BMI 29.0
[2023-06-27 10:32] VITALS: BP 115/70; PULSE 81; RESP 18; O2SAT 97
[2023-06-27] MEDS: methylPREDNISolone ACETATE 80MG/ML VIAL 80 MG (10:32)
[2023-06-27 10:33] VITALS: BP 115/70; PULSE 81; RESP 18; O2SAT 97
[2023-06-27 10:44] VITALS: BP 140/76; PULSE 77; RESP 18; O2SAT 99
[2023-06-27] MEDS: IOPAMIDOL-200 (41%);10ML VIAL 10 ML IV (10:47)
--- NOTE | 2023-06-27 11:33 | P.PCN_ITS ---
Procedure Date: 06/27/23 Time: 10:30 Anesthesiologist:: Jan Kinney CRNA Complications:: None Pre-procedure Diagnosis:: Degenerative disc cervical spine multilevels. Cervical radiculopathy. Cervical postlaminectomy syndrome. Post-procedure Diagnosis:: Same. Indications for Procedure:: Patient is a pleasant 43-year-old female comes our clinic today for cervical epidural steroid injection. Patient reports posterior cervical neck pain as well as bilateral arm radicular symptoms at times. Patient is status post anterior cervical discectomy and fusion C5-6. Procedure Details:: Procedure:Cervical epidural steroid injection Informed consent was obtained and the risks and benefits of the procedure were explained to the patient. The patient was taken to the procedure room and noninvasive monitors placed, including noninvasive blood pressure cuff and pulse oximeter. The neck was prepped using Chloraprep as a cleansing solution. The C6- C7 interspace was viewed using fluroscopy. The skin and subcutaneous tissues were anesthetized using lidocaine 1.5% and a 25-gauge needle. After this an 18- gauge Touhy epidural needle was placed into the C6-C7 interspace under fluroscopy guidance and advanced using loss of resistance to air until the epidural space was encountered. After confirmation of needle placement in the epidural space using contrast dye, a solution containing normal saline, 2 mL and Depo-Medrol 80 mg was incrementally injected into the cervical epidural space.~ The patient tolerated the procedure well with no complications. The patient was observed in the Pain Clinic and then discharged home neurologically intact. Plan and Disposition:: Patient was discharged without incident.
== END 2023-06-27 10:40 | disposition home or self-care (01) ==
LOC: SC.PAINP 09:56
PROVIDERS: PCP Internal Medicine Adolescent Medicine; Visit Provider Nurse Anesthetist, Certified Registered
DX: M50.123 Cervical disc disorder at C6-C7 level with radiculopathy (principal); M96.1 Postlaminectomy syndrome, not elsewhere classified
CPT/HCPCS: 62321; J1010; Q9966

== ENCOUNTER 2023-07-14 10:20 | Outpatient (POV) | payer OTHER, SELFPAY ==
--- OUTSIDE RECORDS SUMMARY | 2023-07-14 10:22 | XMS_ITS | Continuity of Care Document ---
Author Name Unknown Organization [facility] Address [address] [place] [address] Phone Care Team Providers Care Inspector Golf Ball Name Role Phone Kemal BUENROSTRO, Kiara Unavailable Unavailable Allergies, Adverse Reactions, Alerts Substance Reaction Status Criticality No Known Allergies Active No Inform ation Medications Medication Instructions Dosage Effective Dates (start - stop) Status Comments diclofenac potassium 50 mg tablet Take 1 tablet by mouth twice daily - Active Cymbalta 60 mg capsule,delayed release take 2 capsule by oral route every morning - Active baclofen 10 mg tablet Take 1 tablet by mouth twice daily [...] needed for pain 1-2 Tablet - Active methocarbamol 750 mg tablet take 1 - 2 tablet by oral route every 8 hours 750 MG - Active diclofenac sodium 75 mg tablet,delayed release take 1 tablet by oral route 2 times every day - Active methocarbamol 500 mg tablet take 2 tablet by oral route 4 times every day 1000 MG - Active Naprosyn 500 mg tablet take 1 tablet by oral route 2 times every day with food 500 MG - Active tizanidine 4 mg tablet take 1 tablet by oral route every night at bedtime - Active cyclobenzaprine 5 mg tablet take 1 tablet by oral route 3 times every day. Take at night, No Driving - Active prednisone 20 mg tablet 3 PO for 2 days, then 2 PO for 2 days, then 1 PO for 2 days - Active Medrol (River) 4 mg tablets in a dose pack take by Oral route Not Available - Active OK to take after prednisone 20mg has been completed. start medrol river the following day Arnuity Ellipta 50 mcg/actuation powder for inhalation - Active loratadine 10 mg tablet - Active MAGNESIUM (unknown strength) Not Available - Active B Complex Plus Vitamin C 15 mg-10 mg-50 mg-5 mg-300 mg capsule - Active COMPLETE (unknown strength) Not Available - Active tramadol 50 mg tablet take 1 tablet by oral route every 8 hours as needed 50 MG - No Longer Active must last 30 days Lyrica 200 mg capsule take 1 capsule by oral route 3 times every day 200 MG - No Longer Active must last 30 days Procedures Procedure Date Office/outpatient visit,est, mod 2023 Office/outpatient visit,est, mod 2022 Office/outpatient visit,est, mod 2022 Office/outpatient visit,est, mod 2022 Office/outpatient visit,est, mod 2022 Office/outpatient visit,est, mod 2022 Office/outpatient visit,est, mod 2022 Office/outpatient visit,est, mod 2022 Office/outpatient visit,est, mod 2022 Office/outpatient visit,est, mod 2022 Office/outpatient visit,est, mod 2022 X-ray exam of neck spine2-3 views Office/outpatient visit,est, mod 2021 Office/outpatient visit,est, mod 2021 Office/outpatient visit,est, mod 2021 X-ray exam of neck spine2-3 views Medical Report/Narrative Office/outpatient visit,est, mod 2020 MUSC TEST DONE W/N TEST COMP NRV CNDJ TEST 7-8 STUDIES MRI Cervical Spine wo Contrast Postop followup visit X-ray exam of spine, single view 2020 Postop followup visit X-ray exam of spine, single view 2020 Postop followup visit X-ray exam of neck spine2-3 views NECK SPINE FUSE&REMOVE ADDL Insert spine fix dev, ant, 2-3 seg Allograft, spine surg, structural PA NECK SPINE FUSE&REMOVE ADDL PA Insert Spine Fix Dev, Ant 2-3 Seg June Office/outpatient visit,est, mod 2020 X-ray exam of neck spine2-3 views Office/outpatient visit,est, mod 2020 Njx interlaminar crv/thrc LOCM 300-399MG/ML IODINE,1ML Methylprednisolone 40 MG inj Office/outpatient visit,est, mod 2020 Office/outpatient visit,est, mod 2020 Dexamethasone sodium phos Drain/inject major jointor bursa 2020 Marcaine Office/outpatient visit,est, mod 2020 Office/outpatient visit,est, mod 2020 MRI Upr Ext Joint wo Contrast Office/outpatient visit,est, mod 2020 Office/outpatient visit,est, mod 2020 X-ray exam of shoulder, complete 2020 Njx interlaminar crv/thrc LOCM 300-399MG/ML IODINE,1ML Methylprednisolone 40 MG inj Office/outpatient visit,est, mod 2020 Office/outpatient visit,new, mod 2020 Njx interlaminar crv/thrc LOCM 300-399MG/ML IODINE,1ML Methylprednisolone 40 MG inj Office/outpatient visit,est, mod 2020 Office/outpatient visit,est, mod 2019 X-ray exam of eye for foreign body MRI Cervical Spine wo Contrast Office/outpatient visit,est, mod 2019 X-ray exam of neck spine2-3 views Office/outpatient visit,new, mod 2019 Advance Directives Directive Yes / No Effective Date File Name No Information Encounters Encounter Description Practice Location Reason(s) For Visit Diagnoses Date Provider Providers Copied on Encounter Office/outpa tient visit,est, mod [facility], [address] [place], [address], tel:[phone] [facility] Radiculopathy, cervical regionLong term (current) use of opiate analgesic May- 4 Kemal Craig. [address] [place], [place], [id number], [place]. tel:[phone] Carlos Wolf. tel:[phone] erring Provider: Gisela Ramirez, [address] [place], [address]. tel:[phone] [facility], [address] [place], [address], [place] tel:[phone] [facility] No Information Apr- 4 Jaclyn Ulloa. [address] [place], [address], [place]. tel:[phone] [facility], [address] [place], [address], [place] tel:[phone] [facility] No Information 4 Jaclyn Leein. [address] [place], [address], [place]. tel:[phone] [facility], [facility] [address], [place], [address], [place] tel:[phone] [facility] No Information 4 Jaclyn Leein. [address] [place], [address], [place]. tel:[phone] Office/outpa tient visit,est, mod [facility], [facility] [address], [place], [address], [place] tel:[phone] [facility] Radiculopathy, cervical region 3 James Gisela. [address] [place], [address], . tel:[phone] Referring Provider: Aneudy lombardo, [address], [place], [address] . tel:[phone] Office/outpa tient visit,est, mod [facility], [facility] [address], [place], [address], [place] tel:[phone] [facility] Radiculopathy, cervical region 3 Kemal Craig. [address] [place], [id number], [place]. tel:[phone] Referring Provider: Aneudy lombardo, [address], [place], [address] . tel:[phone] Office/outpa tient visit,est, mod [facility], [facility] [address] [facility], [place], [address], [place] tel:[phone] [facility] Radiculopathy, cervical regionPseudart hrosis after fusion or arthrodesis 3 Kemal Craig. [address], [id number], [place]. tel:[phone] Referring Provider: Gisela Ramirez, [address] [place], [address]. tel:[phone] Office/outpa tient visit,est, mod [facility], [address], [place], [address], [place] tel:[phone] [facility] Radiculopathy, cervical regionPseudart hrosis after fusion or arthrodesis 3 Furnish Shruthi. [address] [place], [place], [id number], [place]. tel:[phone] Referring Provider: Aneudy lombardo, [address], [place], [address] . tel:[phone] Office/outpa tient visit,est, mod [facility], [address], [place], [address], [place] tel:[phone] [facility] Radiculopathy, cervical region 3 James Higgins. [address] [place], [address], [place]. tel:[phone] Carlos Wolf. tel:[phone] erring Provider: Aneudy lombardo, [address], [place], [address] . tel:[phone] Office/outpa tient visit,est, mod [facility], [facility] [address], [place], [address], [place] tel:[phone] [facility] Radiculopathy, cervical region 3 Krupa Medina. [facility] [place], [address]. tel:[phone] Referring Provider: Adam Gentile, [facility] [place], [address]. tel:[phone] [facility], [facility] [address], [place], [address], [place] tel:[phone] [facility] No Information Govind-0 3 Shimon Amado. [address], [place], [id number], [place]. tel:[phone] Referring Provider: Adam Gentile, [address] [place] [address], [address]. tel:[phone] Office/outpa tient visit,est, mod [facility], [address] [place], [address], [place] tel:[phone] [facility] Radiculopathy, cervical region 3 Krupa Medina. [address] [place] [address], [address]. tel:[phone] Referring Provider: Adam Gentile, [address] [place] [address], [address]. tel:[phone] Office/outpa tient visit,est, mod [facility], [address] [place], [address], [place] tel:[phone] [facility] Radiculopathy, cervical region 3 James Gisela. [address] [place], [address], [place]. tel:[phone] Carlos Wolf. tel:[phone] erring Provider: Aneudy lombardo, [address] [place], [address] . tel:[phone] Office/outpa tient visit,est, mod [facility], [address] [place], [address], [place] tel:[phone] [facility] Oth symptoms and signs involving the musculoskeleta l systemRadiculo harpreet, cervical region May- 3 Shimon Amado. [address], [place], [id number], [place]. tel:[phone] Referring Provider: Adam Gentile, [address] [place], [address]. tel:[phone] Office/outpa tient visit,est, mod [facility], [address] [place], [address], [place] tel:[phone] [facility] Pseudarthrosis after fusion or arthrodesis 3 Planalreinaldo Medina. [address] [place] [address], [address]. tel:[phone] Primary Practice Provider: Carlos Wolf, [address] [place] [address] [facility] [address], [place], [address]. tel:[phone] erring Provider: Adam Gentile, [address] [place] [address], [address]. tel:[phone] Office/outpa tient visit,est, mod [facility], [facility] [place], [address], [place] tel:[phone] [facility] Pseudarthrosis after fusion or arthrodesis 2 Krupa Medina. [address] [place] [address], [address]. tel:[phone] Referring Provider: Adam Gentile, [address] [place] [address], [address]. tel:[phone] [facility], [facility] [place], [address], [place] tel:[phone] Sorto Strain of muscle, fascia and tendon at neck level, initRadiculopa thy, cervical region 2 Krupa Medina. [address] [place] [address], [address]. tel:[phone] Referring Provider: Adam Gentile, [address] [place] [address], [address]. tel:[phone] Office/outpa tient visit,est, mod [facility], [facility] [place], [address], [place] tel:[phone] [facility] Radiculopathy, cervical regionStrain of muscle, fascia and tendon at neck level, subs June- 2 Krupa Medina. [facility] [place], [address]. tel:[phone] Primary Practice Provider: Carlos Wolf, [address], [place], [address]. tel:[phone] erring Provider: Adma Gentile, [facility] [place], [address]. tel:[phone] Office/outpa tient visit,est, mod [facility], [address] [place] [address], [address], [place] tel:[phone] [facility] Strain of muscle, fascia and tendon at neck level, subsRadiculopa thy, cervical region Fe- 2 Krupa Medina. [address] [place] [address], [address]. tel:[phone] Referring Provider: Adam Galarza, [address] [place], [address]. tel:[phone] [facility], [address] [place] [address], [address], [place] tel:[phone] [facility] No Information 2 Mitra Medina. [facility] [address] [place], [facility], [place]. tel:[phone] Referring Provider: Adam Galarza, [address] [place], [address]. tel:[phone] Office/outpa tient visit,est, mod [facility], [address] [place] [address], [facility], [place] tel:[phone] [facility] Strain of muscle, fascia and tendon at neck level, init 1 Mitra Medina. [address] [place], [place], [facility], [place]. tel:[phone] Referring Provider: Adam Galarza, [address] [place], [place], [facility]. tel:[phone] [facility], [facility] [address] [place], [place], [facility], tel:[phone] [facility] Radiculopathy, cervical region 1 Mitra Medina. [address] [place], [place], [facility], . tel:[phone] Referring Provider: Adam Galarza, [address] [place], [place], [facility]. tel:[phone] [facility], [facility] [address] [place], [facility], tel:[phone] [facility] Radiculopathy, cervical region 1 Mitra Medina. [facility] [address] [place], [facility], . tel:[phone] Referring Provider: Adam Galarza, [address] [place], [place], [facility]. tel:[phone] [facility], [address] [place] [address], [facility], tel:[phone] [facility] symptoms and signs involving the musculoskeleta l system 1 Aleks Julio. [address] [place], [place], [id number], [place]. tel:[phone] Referring Provider: Adam Galarza, [address] [place], [place], [facility]. tel:[phone] [facility], [address] [place] [address], [facility], tel:[phone] [facility] No Information 1 Mitra Medina. [address] [place], [place], [facility], [place]. tel:[phone] Referring Provider: Adam Galarza, [address] [place], [place], [facility]. tel:[phone] [facility], [address], [place], [facility], [place] tel:[phone] [facility] Radiculopathy, cervical region 1 Mitra Medina. [address] [place], [place], [facility], [place]. tel:[phone] Referring Provider: Adam Galarza, [address] [place], [place], [facility]. tel:[phone] [facility], [facility] [address] [place], [facility], [place] tel:[phone] [facility] No Information 1 Mitra Medina. [address] [place], [place], [facility], [place]. tel:[phone] Referring Provider: Adam Galarza, [address] [facility], [place], [place], [facility]. tel:[phone] [facility], [address], [facility], [place] tel:[phone] [facility] Radiculopathy, cervical region 1 Mitra Medina. [address] [place], [facility], [place]. tel:[phone] Referring Provider: Adam Galarza, [address] [place], [place], [facility]. tel:[phone] [facility], [facility] [address] [place], [facility], [place] tel:[phone] [facility] Radiculopathy, cervical region 1 Mitra Medina. [address] [place], [place], [facility], [place]. tel:[phone] Referring Provider: Manuel Orozco, [address] [place], [address]. tel:[phone] [facility], [address], [place], [facility], [place] tel:[phone] [facility] [place] No Information 1 Mitra Medina. [address] [place], [place], [facility], . tel:[phone] Referring Provider: Manuel Orozco, [address] [place] [address], [address]. tel:[phone] [facility], [address] [place] [address], [facility], tel:[phone] [place] [address] No Information 1 Yung John. [address], [place], [facility], . tel:[phone] Referring Provider: Manuel Orozco, [address] [place] [address], [address]. tel:[phone] [facility], [address] [place] [address], [facility], tel:[phone] [facility] No Information 1 Mitra Medina. [address] [place], [place], [facility], . tel:[phone] Office/outpa tient visit,est, mod [facility], [address] [place] [address], [facility], tel:[phone] [facility] Radiculopathy, cervical region Apr-1 1 Mtira Medina. [address] [place], [place], [facility], . tel:[phone] Referring Provider: Manuel Orozco, [address] [place], [address]. tel:[phone] Office/outpa tient visit,est, mod [facility], [facility] [address] [place], [place], [facility], tel:[phone] [facility] Bursitis of right shoulder Apr-0 8 1 Tonya Abarca. 6480 [facility] [address], [place], [place], [id number], [place]. tel:[phone] Referring Provider: Manuel Orozco, [address] [place], [address]. tel:[phone] [facility], [place], [address], [place] tel:[phone] [facility] Radiculopathy, cervical region Apr-3 0- 1 Shimon Brian. [address] [place], [place], [id number], [place]. tel:[phone] Office/outpa tient visit,est, mod [facility], [address] [place] [address], [address], [place] tel:[phone] [facility] Strain of muscle, fascia and tendon at neck level, initRadiculopa thy, cervical region Apr- 1 Ernesto Jackson. [address] [place], [address], [place]. tel:[phone] Office/outpa tient visit,est, mod [facility], [address] [place] [address], [address], [place] tel:[phone] [facility] Bursitis of right shoulder Apr- 1 Tonya Tevin. [address] [address], [place], [place], [id number], [place]. tel:[phone] Office/outpa tient visit,est, mod [facility], [address] [place] [address], [address], [place] tel:[phone] [facility] Cervical disc disorder at C5-C6 level with radiculopathy Apr-0 1 Tonya Tevin. 6480 [facility], [facility] [address], [place], [place], [id number], [place]. tel:[phone] Office/outpa tient visit,est, mod [facility], [facility] [place], [address], [place] tel:[phone] [facility] Cervical disc disorder at C5-C6 level with radiculopathy Apr-0 1 Tip Mendez. [address] [place] [address], [id number], [place]. tel:[phone] Referring Provider: Manuel Orozco, [address] [place] [address], [address]. tel:[phone] [facility], [address] [place] [address], [address], [place] tel:[phone] [facility] No Information Apr-0 1 Tonya Abarca. 6480 [facility], [facility] [address], [place], [place], [id number], [place]. tel:[phone] Referring Provider: Tevin Castaneda, 6480 [facility], [place], [address] . tel:[phone] Office/outpa tient visit,est, mod [facility], [address] [place] [address], [address], [place] tel:[phone] [facility] Strain of muscle, fascia and tendon at neck level, initCervical disc disorder at C5-C6 level with radiculopathyR adiculopathy, cervical region 1 Ernesto Jackson. [address] [place] [address], [address], [place]. tel:[phone] Referring Provider: Manuel Orozco, [address] [place] [address], [address]. tel:[phone] Office/outpa tient visit,est, mod [facility], [address] [place] [address], [address], [place] tel:[phone] [facility] shoulder (chief complaint) Cervical disc disorder at C5-C6 level with radiculopathy 1 Tonya Abarca. 6480 [facility], [facility] [address], [place], [place], [id number], [place]. tel:[phone] Referring Provider: Manuel Orozco, [address] [place] [address], [facility]. tel:[phone] [facility], [address] [place], [address], [place] tel:[phone] [facility] Radiculopathy, cervical region 1 Shimon Aneudy. [address], [place], [id number], [place]. tel:[phone] Referring Provider: Manuel Orozco, [address] [place] [address], [facility]. tel:[phone] [facility], [address] [place], [address], [place] tel:[phone] [facility] No Information 1 Ernesto Jackson. [address] [place] [address], [facility], . tel:[phone] Referring Provider: Manuel Orozco, [address] [place] [address], [facility]. tel:[phone] Office/outpa tient visit,[facility], [facility], [address] [place], [address], [place] tel:[phone] [facility] Strain of muscle, fascia and tendon at neck level, initCervical disc disorder at C5-C6 level with radiculopathy 1 Ernesto Jackson. [address] [place] [address], [facility], [place]. tel:[phone] Referring Provider: Manuel Orozco, [address] [place] [address], [facility]. tel:[phone] Office/outpa tient visit,[facility], [address] [place], [address], [place] tel:[phone] [facility] cervical spine (chief complaint) Radiculopathy, cervical region 1 Shimon Aneudy. [address], [place], [id number], [place]. tel:[phone] Referring Provider: Manuel Orozco, [address] [place], [place] [address], [place], [address]. tel:[phone] Office/outpa tient visit,est, [facility], [facility], tel:[phone] [address] [place] [address] Strain of muscle, fascia and tendon at neck level, initCervical disc disorder at C5-C6 level with radiculopathy 1 Sowandre Jackson. [address] [place], [place] [address], [address], [place]. tel:[phone] Referring Provider: Manuel Orozco, [address] [place] [address], [facility]. tel:[phone] [facility] [address], [facility], tel:[phone] [facility] No Information 0 Ernesto Jackson. [address] [place] [address], [address], [place]. tel:[phone] Referring Provider: Manuel Orozco, [address] [place], [place] [address], [place], [facility]. tel:[phone] Office/outpa tient visit,est, [facility], [address], [place] tel:[phone] [facility] Radiculopathy, cervical regionStrain of muscle, fascia and tendon at neck level, init 0 Ernesto Jackson. [facility] [place], [address], [place]. tel:[phone] Referring Provider: Manuel Orozco, [address] [place], [place] [address]o [place], [address]. tel:[phone], [facility], tel:[phone] [address] [place] [address] Encounter for other specified special examinations 0 Ernesto Jackson. [address] [place] [address], [address], [place]. tel:[phone] Referring Provider: Manuel Orozco, [address] [place] [address], [id number]. tel:[phone] [facility], [address] [place] [address], [facility], tel:[phone] 1590 [facility] No Information 0-202 0 Ernesto Jackson. [address] [place] [address], [facility], [place]. tel:[phone] Referring Provider: Manuel Orozco, [address] [place] [address], [facility]. tel:[phone] [facility], [address] [place] [address], [facility], tel:[phone] 0320 [facility] Radiculopathy, cervical regionStrain of muscle, fascia and tendon at neck level, init 9 0 Ernesto Jackson. [address] [place] [address], [facility], [place]. tel:[phone] Referring Provider: Tevin Castaneda, [address] [facility] [address] [facility], [place], [address] . tel:[phone] Office/outpa tient visit,[facility], [address] [place] [address], [facility], tel:[phone] 5335 [facility] Sprain of ligaments of cervical spine, initial encounter 0 Tonya Abarca. [address] [facility], [address], [place], [place], [id number], [place]. tel:[phone] Referring Provider: Tamiko romero, [address] [place] [address], [address]. tel:[phone] Family History Family Member Type Diagnosis Age At Onset Mother Problem (finding) Hypertension Problem (finding) Family history of Thyro id disorder Mother Problem (finding) Cancer Father Problem (finding) Hyperlipidemia Father Problem (finding) Hypertension Payers Payer name Insurance type Covered green party ID Authoriza tirosa(s) [employer] [id number] Social History Type Description Quantity Date Captured Comments Alcohol Use Details Unknown Caffeine Use Details Unknown Tobacco Use Status No Information Smoking Status No Information Sex Female Chief Complaint And Reason For Visit No Information Reason For Referral Reason For Referral No Information Plan Of Treatment Date Type Action Status Appointment Anika Goodman BOOKED History Of Present Illness Encounter Date Complaint History Of Prese nt Illness cervical spine cervical spine cervical spine cervical spine cervical spine cervical spine cervical spine shoulder Location: right shoulder. The pain is aching and sharp. Associated symptoms include joint tenderness, swelling and weakness. Pertinent negatives include bruising. cervical spine Functional Status Date Functional Assessmen t Pain Score 7/10 Instructions Date Instruction Additional Infor mation No Information Assessments Type Assessment Date No Information Patient Care Teams Name Effective Dates (start - stop) Status Members No Information
[2023-07-14 10:37] VITALS: BP 127/78; PULSE 79; RESP 18; O2SAT 97; BMI 30.7
--- NOTE | 2023-07-14 11:09 | P.PCN_ITS ---
Procedure Anesthesiologist:: Jan Kinney CRNA Complications:: None
--- NOTE | 2023-07-14 11:09 | EXP.PAIN.PRO ---
Procedure Anesthesiologist:: Jan Kinney CRNA Complications:: None
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
[2023-07-14 11:42] LABS: Alanine Aminotransferase 25 U/L (12-78); Albumin/Globulin Ratio 1.4 (1.1-1.8); Alkaline Phosphatase 81 U/L (38-126); Anion Gap 13.3 mEq/L (5-15); Aspartate Amino Transferase 28 U/L (14-36); Bilirubin,Total 0.4 mg/dl (0.2-1.3); Blood Urea Nitrogen 14 mg/dl (7-17); Calcium 9.5 mg/dl (8.4-10.2); Carbon Dioxide 24 mmol/L (22.0-30.0); Chloride 105 mmol/L (98-107); Creatinine Clearance Estimated 148 mL/min (50-200); Estimated Glomerular Filt Rate 92 ml/min (>60); GFR (African American) 112 ML/MIN (>60); Globulin 2.8 g/dL (1.3-3.2); Glucose 90 mg/dl (74-100); Potassium 4.3 mmoL/L (3.5-5.1); Sodium 138 mmol/L (136-145); Total Protein,Serum 6.8 g/dl (6.3-8.2)
== END 2023-07-14 23:59 | disposition home or self-care (01) ==
PROVIDERS: Nurse Practitioner Obstetrics & Gynecology; PCP Internal Medicine Adolescent Medicine; Visit Provider Nurse Anesthetist, Certified Registered
DX: M50.123 Cervical disc disorder at C6-C7 level with radiculopathy (principal); M96.1 Postlaminectomy syndrome, not elsewhere classified; M47.22 Other spondylosis with radiculopathy, cervical region
CPT/HCPCS: 36415; 80053; 99212; G0463

== ENCOUNTER 2023-08-11 13:25 | Outpatient (POV) | payer OTHER, SELFPAY ==
[2023-08-11 13:44] VITALS: BP 134/90; PULSE 79; RESP 18; O2SAT 97; BMI 30.7
--- NOTE | 2023-08-11 13:57 | EXP.PAIN.PRO ---
Procedure Date: 08/11/23 Time: 13:58 Anesthesiologist:: Hunter Sage MD Complications:: None Pre-procedure Diagnosis:: Degenerative disease of cervical spine with previous cervical fusion at C5-C6 and cervical radicular symptoms
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
== END 2023-08-11 23:59 | disposition home or self-care (01) ==
LOC: SC.PAIN 13:25
PROVIDERS: PCP Internal Medicine Adolescent Medicine; Visit Provider Anesthesiology
DX: M50.10 Cervical disc disorder with radiculopathy, unspecified cervical region (principal); Z98.1 Arthrodesis status
CPT/HCPCS: 99212; G0463

== ENCOUNTER 2023-09-21 10:24 | Outpatient (CLI) | payer OTHER, SELFPAY ==
--- NOTE | 2023-09-21 10:24 | MM_ITS ---
PROCEDURE INFORMATION: Exam: MG Bilateral Screening 3D Mammography Exam date and time: 09/21/2023 10:11 AM Age: 43 years old Clinical indication: Screening examination; Additional info: Routine screening mammogram TECHNIQUE: Imaging protocol: Bilateral Screening tomosynthesis and 2D mammography including computer-aided detection (CAD) when performed. COMPARISON: MG MM DIG SCREENING MAMM BI W/CAD 05/27/2022 7:56 AM FINDINGS: MAMMOGRAPHY: Breast composition: There are scattered areas of fibroglandular density. Mass: None. Architectural distortion: No new or suspicious architectural distortion. Calcifications: No new or suspicious calcifications are present Asymmetric density: No new or suspicious asymmetric density is present Skin thickening: None. Axillary adenopathy: None. IMPRESSION: No mammographic evidence of malignancy. Recommend annual screening mammography unless otherwise clinically indicated. ASSESSMENT: BI-RADS category 1: Negative.
== END 2023-09-21 23:59 | disposition home or self-care (01) ==
LOC: RAD 10:24
PROVIDERS: PCP Internal Medicine Adolescent Medicine; Visit Provider Nurse Practitioner Obstetrics & Gynecology
DX: Z12.31 Encounter for screening mammogram for malignant neoplasm of breast (principal)
CPT/HCPCS: 77063; 77067

== ENCOUNTER 2023-10-04 08:42 | Outpatient (CLI) | payer OTHER, SELFPAY ==
[2023-10-04 09:08] LABS: Basophils # 0.1 K/mm3 (0-0.2); Basophils % 1.4 % (0.1-2.0); Eosinophils # 0.2 K/mm3 (0.0-0.4); Eosinophils % 3.2 % (0.1-12.0); Hematocrit 47.3 % (37.0-47.0); Hemoglobin 14.9 g/dL (12.2-16.2); Lymphocytes # 1.5 K/mm3 (0.7-4.5); Lymphocytes % 22.7 % (10-50); Mean Corpuscular HGB Conc 31.5 g/dL (31.8-35.4); Mean Corpuscular Hemoglobin 29.7 pg (27.0-31.2); Mean Corpuscular Volume 94.3 fl (81-99); Mean Platelet Volume 7.5 fl (7.4-10.4); Monocytes # 0.2 K/mm3 (0.1-1.0); Monocytes % 3.6 % (1.7-9.3); Neutrophils # 4.7 K/mm3 (1.8-7.8); Neutrophils % 69.2 % (37.0-80.0); Platelet Count 236 K/mm3 (142-424); Red Blood Count 5.01 M/mm3 (4.20-5.40); Red Cell Distribution Width 13.6 % (11.5-17.5); White Blood Count 6.7 K/mm3 (4.8-10.8)
[2023-10-04 11:36] LABS: Alanine Aminotransferase 26 U/L (12-78); Albumin Level 3.8 g/dl (3.5-5.0); Albumin/Globulin Ratio 1.4 (1.1-1.8); Alkaline Phosphatase 68 U/L (38-126); Anion Gap 8.2 mEq/L (5-15); Aspartate Amino Transferase 30 U/L (14-36); Bilirubin,Total 0.5 mg/dl (0.2-1.3); Blood Urea Nitrogen 19 mg/dl (7-17); Calcium 9.1 mg/dl (8.4-10.2); Carbon Dioxide 25 mmol/L (22.0-30.0); Chloride 109 mmol/L (98-107); Chol/HDL Ratio 5.7 (1-3.5); Cholesterol 244 mg/dl (140-200); Estimated Glomerular Filt Rate 92 ml/min (>60); GFR (African American) 112 ML/MIN (>60); Globulin 2.8 g/dL (1.3-3.2); Glucose 83 mg/dl (74-100); HDL Cholesterol 43 mg/dl (40-60); Potassium 4.2 mmoL/L (3.5-5.1); Sodium 138 mmol/L (136-145); Total Protein,Serum 6.6 g/dl (6.3-8.2); Triglycerides 124 mg/dl (30-150); VLDL Cholesterol 25 mg/dL (0-40)
[2023-10-04 11:46] LABS: Direct LDL Cholesterol 140.91 mg/dL (100-129)
[2023-10-04 13:32] LABS: HIV (1&2) Antibody Rapid NONREACTIVE (NONREACTIVE)
[2023-10-05 09:13] LABS: HCV Ab Non Reactive (Non Reactive)
[2023-10-05 12:12] LABS: Estradiol 75.7 pg/mL (.); FSH 6.2 mIU/mL (.); LH 8.1 mIU/mL (.); Rapid Plasma Reagin Ab Titer Non Reactive titer (NonRea<1:1)
== END 2023-10-04 23:59 | disposition home or self-care (01) ==
LOC: LAB 08:42
PROVIDERS: PCP Internal Medicine Adolescent Medicine; Visit Provider Nurse Practitioner Obstetrics & Gynecology
DX: Z01.419 Encounter for gynecological examination (general) (routine) without abnormal findings (principal)
CPT/HCPCS: 36415; 80053; 80061; 82670; 83001; 83002; 85025; 86593

== ENCOUNTER 2023-10-05 14:59 | Outpatient (POV) | payer OTHER, SELFPAY ==
[2023-10-05 15:16] VITALS: BP 127/85; PULSE 76; RESP 16; O2SAT 96; BMI 32.8
--- NOTE | 2023-10-05 15:59 | EXP.PAIN.SOA ---
[facility] Disclaimer: The information contained in this section may have been updated after the patient was seen, as this information can be updated by other users. Medical History (Updated 09/26/23 @ 08:29 by MARISELA Ashton) High risk sexual behavior MDD (major depressive disorder), recurrent episode Asthma Migraine Eczema Allergies Surgical History History of esophagogastroduodenoscopy (EGD) History of colonoscopy History of neck surgery History of tonsillectomy History of hysterectomy Family History (Updated 09/26/23 @ 08:30 by MARISELA Ashton) Father Cancer Other Family history of hypertension Social History Smoking Status: Current every day smoker tobacco type: cigarettes packs per day: 1 second hand exposure: No alcohol intake: never substance use type: denies use current occupational status: other Travel in the last 8 weeks: None household members: children housing: house marital status: caffeine: Yes PM Subjective & Objective Subjective Subjective:: Patient is a pleasant 43-year-old female who presents today for follow-up of psychological evaluation. Today she rates her pain a 7 out of 10. She denies any new trauma or injury. Patient does states she continues to have chronic neck pain that does radiate into her upper extremities. Patient states the pain is constant and does interfere with her ability to perform activities of daily living such as cooking and cleaning. Patient has tried and failed conservative therapy including oral medications, heat and ice, topicals, physical therapy, injection therapy and is not a candidate for additional surgery. Patient does state that she would like to proceed forward with the trial. Her Jose has been reviewed and is appropriate. Review of Systems: General: No recent weight changes, no fever, no sleep disturbances Respiratory: No cough, no shortness of air, no recurring pulmonary infections Cardiovascular/peripheral vascular: No chest pain, no palpitations, no edema, no shortness of breath Gastrointestinal: No new onset incontinence, normal bowel movements reported Genitourinary: No new onset incontinence Musculoskeletal: Neck pain, upper extremity pain Psychiatric: [Normal mood/affect] Neurological: [Denies weakness in extremities], [denies balance issues] Pain at rest (0-10 scale): 7 Objective Objective:: Physical Exam: General: Alert and oriented x3, no acute distress, pleasant and cooperative Lungs: Respirations even and unlabored, symmetrical chest expansion Eyes: PERRL Musculoskeletal: Flexion and extension of cervical [spine] somewhat guarded secondary to pain, [antalgic gait noted] Neurological: Speech clear, no gross sensory deficit Has patient had previous pain injection?: No Conservative treatment options previously tried: Home exercise plan Length of treatment: Longer than 6 weeks Meds Home Medications and Allergies Home Medications ?Medication ?Instructions ?Recorded ?Confirmed ?Type loratadine 10 mg tablet (Claritin) 10 mg PO DAILY Allergy symptoms 03/13/18 10/05/23 History B-complex with vitamin C 1 cap PO DAILY Supplement 12/09/20 10/05/23 History cholecalciferol (vitamin D3) 50 50 mcg PO DAILY Supplement 12/09/20 10/05/23 History mcg (2,000 unit) capsule magnesium 30 mg tablet 30 mg PO DAILY Supplement 12/09/20 10/05/23 History clobetasol 0.05 % scalp solution 1 ml topical DAILY exzema 06/08/21 10/05/23 History duloxetine 60 mg capsule,delayed 60 mg PO .2 tablets QD Depression 05/18/22 10/05/23 History release acetaminophen 500 mg tablet 500 mg PO Q6H PRN Pain 01/19/23 10/05/23 History (Tylenol Extra Strength) valacyclovir 1 gram tablet 1,000 mg PO DAILY PRN hsv 01/19/23 10/05/23 History (Valtrex) baclofen 10 mg tablet 10 mg PO BID #60 tabs 06/12/23 10/05/23 Rx diclofenac potassium 50 mg tablet 50 mg PO BID #60 tabs 06/12/23 10/05/23 Rx spironolactone 100 mg tablet See Rx Instructions .Route 07/03/23 10/05/23 Rx .COMPLEX #30 tabs pregabalin 200 mg capsule 200 mg PO TID #90 caps 09/20/23 10/05/23 Rx bupropion HCl 300 mg 24 hr tablet, 300 mg PO DAILY 09/26/23 10/05/23 History extended release thiamine HCl (vitamin B1) 100 mg 100 mg PO DAILY 09/26/23 10/05/23 History tablet metronidazole 500 mg tablet 500 mg PO BID 7 days #14 tabs 09/29/23 10/05/23 Rx New Prescriptions to Start Prescriptions: Allergies Allergy/AdvReac Type Severity Reaction Status Date / Time No Known Allergies Allergy Verified 09/26/23 08:14 Assessment and Plan *Assessment and plan (1) History of fusion of cervical spine: Status: Acute Category: Surgical Code(s): Z98.1 - Arthrodesis status (2) Cervical radiculopathy: Status: Acute Category: Medical Code(s): M54.12 - Radiculopathy, cervical region (3) Degenerative disc disease, cervical: Status: Acute Category: Medical Code(s): M50.30 - Other cervical disc degeneration, unspecified cervical region Plan Patient continues to experience significant pain throughout her neck and upper extremities. I did review over her psychological evaluation and she was deemed an appropriate candidate for the device. Risk and benefits of the trial were explained to the patient and she would like to proceed forward with this plan of care. Patient has tried and failed conservative therapy including continued at home stretching exercise for longer than 6 weeks as well as previous physical therapy, injection therapy and was told she is not a surgical candidate. We will proceed forward and submit to insurance for the spinal cord stimulator trial under fluoroscopy. Patient agrees with this plan of care. Patient has been instructed to contact the clinic with any concerns before the next appointment. Dr. Sage has reviewed this note and agrees with this plan of care. This note was dictated using voice recognition software and make contain errors or omissions. All injections are used with Lidocaine or Bupivacaine and Depo Medrol.
== END 2023-10-05 23:59 | disposition home or self-care (01) ==
LOC: SC.PAIN 14:59
PROVIDERS: PCP Internal Medicine Adolescent Medicine; Visit Provider Nurse Practitioner Family
DX: Z98.1 Arthrodesis status (principal); M50.10 Cervical disc disorder with radiculopathy, unspecified cervical region; F17.210 Nicotine dependence, cigarettes, uncomplicated; Z73.89 Other problems related to life management difficulty; Z79.899 Other long term (current) drug therapy
CPT/HCPCS: 99212; G0463

== ENCOUNTER 2023-11-09 15:29 | Outpatient (POV) | payer OTHER, SELFPAY ==
[2023-11-09 15:40] VITALS: BP 129/84; PULSE 81; RESP 18; O2SAT 97; BMI 32.8
--- NOTE | 2023-11-09 16:19 | A.OFFVIS_ITS ---
[facility] Disclaimer: The information contained in this section may have been updated after the patient was seen, as this information can be updated by other users. Medical History (Updated 09/26/23 @ 08:29 by MARISELA Ashton) High risk sexual behavior MDD (major depressive disorder), recurrent episode Asthma Migraine Eczema Allergies Surgical History History of esophagogastroduodenoscopy (EGD) History of colonoscopy History of neck surgery History of tonsillectomy History of hysterectomy Family History (Updated 09/26/23 @ 08:30 by MARISELA Ashton) Father Cancer Other Family history of hypertension Social History Smoking Status: Current every day smoker tobacco type: cigarettes packs per day: 1 second hand exposure: No alcohol intake: never substance use type: denies use current occupational status: other Travel in the last 8 weeks: None household members: children housing: house marital status: caffeine: Yes PM Subjective & Objective Subjective Subjective:: Patient is a pleasant 43-year-old female who presents today for insurance denial of spinal cord stimulator trial. Today she rates her pain a 6 out of 10. She d enies any new trauma or injury. She does state that she continues to have the chronic pain throughout her neck with radiating numbness and tingling into her bilateral upper extremities. Patient states that the sensations running down her entire arm to her fingers bilaterally. 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 Patient states that the pain is constant and does interfere with her ability perform activities of daily living such as cooking and cleaning. Patient has had prior neck surgery that did not provide significant improvement and does now have cervical radiculopathy symptoms. Patient did have her cervical surgery back in 2020 by Adam Hamilton out of [facility] in [facility]. Patient states that she has had the radiating symptoms since then and it is progressively worsened. Patient states the slightest bit of activity involving pressure or activity with her arms such as washing the windows causes severe pain and disability. Patient has been to chiropractor with massage therapy, manipulation and dry needling as well as 2 different sets of physical therapy sessions for her neck and radicular symptoms with pain that was worse causing significant migraines. Patient is started in physical therapy now however is seeing about her low back symptoms. Patient does state that she would still like to proceed forward with the spinal cord stimulator trial as she has tried about everything else with no additional relief. Patient is prescribed pregabalin 200 mg 3 times daily from our office. She denies any side effects from this medication. Patient does states she would like to see about decreasing this to maybe eventually come off of the pregabalin. Her Jose has been reviewed and is appropriate. Review of Systems: General: No recent weight changes, no fever, no sleep disturbances Respiratory: No cough, no shortness of air, no recurring pulmonary infections Cardiovascular/peripheral vascular: No chest pain, no palpitations, no edema, no shortness of breath Gastrointestinal: No new onset incontinence, normal bowel movements reported Genitourinary: No new onset incontinence Musculoskeletal: Neck pain, bilateral arm numbness tingling Psychiatric: [Normal mood/affect] Neurological: [Denies weakness in extremities], [denies balance issues] Pain at rest (0-10 scale): 6 Objective Objective:: Physical Exam: General: Alert and oriented x3, no acute distress, pleasant and cooperative Lungs: Respirations even and unlabored, symmetrical chest expansion Eyes: PERRL Musculoskeletal: Flexion and extension of cervical [spine] somewhat guarded secondary to pain, [antalgic gait noted] positive Spurling's test Neurological: Speech clear, no gross sensory deficit Has patient had previous pain injection?: No Conservative treatment options previously tried: Home exercise plan Length of treatment: Longer than 12 weeks and Prescription medications Length of treatment: Longer than 12 weeks Meds Home Medications and Allergies Home Medications ?Medication ?Instructions ?Recorded ?Confirmed ?Type loratadine 10 mg tablet (Claritin) 10 mg PO DAILY Allergy symptoms 03/13/18 11/09/23 History B-complex with vitamin C 1 cap PO DAILY Supplement 12/09/20 11/09/23 History cholecalciferol (vitamin D3) 50 50 mcg PO DAILY Supplement 12/09/20 11/09/23 History mcg (2,000 unit) capsule magnesium 30 mg tablet 30 mg PO DAILY Supplement 12/09/20 11/09/23 History clobetasol 0.05 % scalp solution 1 ml topical DAILY exzema 06/08/21 11/09/23 History duloxetine 60 mg capsule,delayed 60 mg PO .2 tablets QD Depression 05/18/22 11/09/23 History release acetaminophen 500 mg tablet 500 mg PO Q6H PRN Pain 01/19/23 11/09/23 History (Tylenol Extra Strength) valacyclovir 1 gram tablet 1,000 mg PO DAILY PRN hsv 01/19/23 11/09/23 History (Valtrex) diclofenac potassium 50 mg tablet 50 mg PO BID #60 tabs 06/12/23 11/09/23 Rx bupropion HCl 300 mg 24 hr tablet, 300 mg PO DAILY 09/26/23 11/09/23 History extended release thiamine HCl (vitamin B1) 100 mg 100 mg PO DAILY 09/26/23 11/09/23 History tablet metronidazole 500 mg tablet 500 mg PO BID 7 days #14 tabs 09/29/23 11/09/23 Rx pregabalin 200 mg capsule 200 mg PO TID #90 caps 10/23/23 11/09/23 Rx baclofen 10 mg tablet 10 mg PO BID #60 tabs 10/25/23 11/09/23 Rx spironolactone 100 mg tablet See Rx Instructions .Route 10/31/23 11/09/23 Rx .COMPLEX #30 tabs New Prescriptions to Start Prescriptions: Allergies Allergy/AdvReac Type Severity Reaction Status Date / Time No Known Allergies Allergy Verified 09/26/23 08:14 Assessment and Plan *Assessment and plan (1) Cervical radiculopathy: Status: Acute Category: Medical Code(s): M54.12 - Radiculopathy, cervical region (2) Degenerative disc disease, cervical: Status: Acute Category: Medical Code(s): M50.30 - Other cervical disc degeneration, unspecified cervical region (3) History of fusion of cervical spine: Status: Acute Category: Surgical Code(s): Z98.1 - Arthrodesis status Plan Patient continues to experience significant pain throughout her neck with radiating symptoms into her upper extremities with numbness and tingling that is 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 Patient did have limited range of motion of her cervical spine with a positive Spurling's test. Patient has had failed cervical fusion with continued radicular symptoms. Patient has tried and failed conservative therapy including oral medication, heat and ice, topicals, injection therapy, chiropractor therapy, physical therapy and continued at home stretching exercise for longer than 12 weeks. Patient did go through a psychological evaluation and was deemed an appropriate candidate for the spinal cord stimulator trial. I did review over again the risk and benefits of this procedure and the patient would like to proceed forward with this plan of care. Patient will also have a new CHAYO scale performed to be included with this note to be submitted to insurance. We will resubmit for the spinal cord stimulator trial and contact the patient once we have approval. I will also change her pregabalin 250 mg 3 times daily and provide a 1 month supply of this medication and have her follow-up in 1 month for the decrease. Patient agrees with this plan of care. Patient has been instructed to contact the clinic with any concerns before the n ext appointment. Dr. Sage has reviewed this note and agrees with this plan of care. This note was dictated using voice recognition software and make contain errors or omissions. All injections are used with Lidocaine or Bupivacaine and Depo Medrol.
== END 2023-11-09 23:59 | disposition home or self-care (01) ==
PROVIDERS: PCP Internal Medicine Adolescent Medicine; Visit Provider Nurse Practitioner Family
DX: M50.10 Cervical disc disorder with radiculopathy, unspecified cervical region (principal); Z98.1 Arthrodesis status; F17.210 Nicotine dependence, cigarettes, uncomplicated; Z73.89 Other problems related to life management difficulty
CPT/HCPCS: 99212; G0463

== ENCOUNTER 2023-12-11 10:49 | Outpatient (POV) | payer OTHER, SELFPAY ==
[2023-12-11 11:40] VITALS: BP 126/86; PULSE 80; RESP 16; O2SAT 99; BMI 33.2
--- NOTE | 2023-12-11 12:15 | A.OFFVIS_ITS ---
[facility] Disclaimer: The information contained in this section may have been updated after the patient was seen, as this information can be updated by other users. Medical History High risk sexual behavior MDD (major depressive disorder), recurrent episode Asthma Migraine Eczema Allergies Surgical History History of esophagogastroduodenoscopy (EGD) History of colonoscopy History of neck surgery History of tonsillectomy History of hysterectomy Family History Father Cancer esophageal Other Family history of hypertension Social History Smoking Status: Current every day smoker tobacco type: cigarettes packs per day: 1 second hand exposure: No alcohol intake: never substance use type: denies use current occupational status: other Travel in the last 8 weeks: None household members: children housing: house marital status: caffeine: Yes PM Subjective & Objective Subjective Subjective:: Patient is a pleasant 43-year-old female who presents today for 1 month follow- up. Today she rates her pain a 7 out of 10. She denies any new trauma or injury. She states she still has chronic pain throughout her neck that does go into her upper extremities with numbness and tingling and has been having more shoulder pain as well. She describes it as an aching, throbbing sensation with numbness and tingling. Patient states that she has officially started physical therapy as of today and that she is experiencing more pain in her shoulder joints due to the increased range of motion. Patient does state that in the past she did have an injection at [facility] for her neck and that it lasted 14 days however she cannot remember what it was. Patient did also complete a psychological evaluation and was deemed an appropriate candidate for the spinal cord stimulator and states that she still would like to proceed forward with this plan of care. Patient has tried and failed conservative therapy. At her last visit we did decrease her pregabalin down to 150 mg 3 times a day and she states that she really did not notice any significant changes but she has had quite a bit going on. Patient does state that she would still like to continue to decrease this down in order to come off this medication. Her Jose has been reviewed and is appropriate. Review of Systems: General: No recent weight changes, no fever, no sleep disturbances Respiratory: No cough, no shortness of air, no recurring pulmonary infections Cardiovascular/peripheral vascular: No chest pain, no palpitations, no edema, no shortness of breath Gastrointestinal: No new onset incontinence, normal bowel movements reported Genitourinary: No new onset incontinence Musculoskeletal: Neck pain, upper extremity pain, bilateral shoulder pain Psychiatric: [Normal mood/affect] Neurological: [Denies weakness in extremities], [denies balance issues] Pain at rest (0-10 scale): 7 Objective Objective:: Physical Exam: General: Alert and oriented x3, no acute distress, pleasant and cooperative Lungs: Respirations even and unlabored, symmetrical chest expansion Eyes: PERRL Musculoskeletal: Flexion and extension of bilateral shoulders somewhat guarded secondary to pain, [antalgic gait noted] Neurological: Speech clear, no gross sensory deficit Has patient had previous pain injection?: No Conservative treatment options previously tried: Home exercise plan Length of treatment: Longer than 12 weeks Meds Home Medications and Allergies Home Medications ?Medication ?Instructions ?Recorded ?Confirmed ?Type loratadine 10 mg tablet (Claritin) 10 mg PO DAILY Allergy symptoms 03/13/18 12/11/23 History B-complex with vitamin C 1 cap PO DAILY Supplement 12/09/20 12/11/23 History cholecalciferol (vitamin D3) 50 50 mcg PO DAILY Supplement 12/09/20 12/11/23 History mcg (2,000 unit) capsule magnesium 30 mg tablet 30 mg PO DAILY Supplement 12/09/20 12/11/23 History clobetasol 0.05 % scalp solution 1 ml topical DAILY exzema 06/08/21 12/11/23 History duloxetine 60 mg capsule,delayed 60 mg PO .2 tablets QD Depression 05/18/22 12/11/23 History release acetaminophen 500 mg tablet 500 mg PO Q6H PRN Pain 01/19/23 12/11/23 History (Tylenol Extra Strength) diclofenac potassium 50 mg tablet 50 mg PO BID #60 tabs 06/12/23 12/11/23 Rx bupropion HCl 300 mg 24 hr tablet, 300 mg PO DAILY 09/26/23 12/11/23 History extended release thiamine HCl (vitamin B1) 100 mg 100 mg PO DAILY 09/26/23 12/11/23 History tablet spironolactone 100 mg tablet See Rx Instructions .Route 10/31/23 12/11/23 Rx .COMPLEX #30 tabs pregabalin 150 mg capsule (Lyrica) 150 mg PO TID #90 caps 11/09/23 12/11/23 Rx famotidine 20 mg tablet 20 mg PO BID 11/22/23 12/11/23 History naproxen 500 mg tablet 500 mg PO BID 11/22/23 12/11/23 History nicotine 21 mg/24 hr daily 30 mg transdermal DIRECTED 11/22/23 12/11/23 History transdermal patch omeprazole 20 mg capsule,delayed 20 mg PO DAILY #30 caps 11/22/23 12/11/23 Rx release baclofen 10 mg tablet See Rx Instructions .Route 11/27/23 12/11/23 Rx .COMPLEX #60 tabs valacyclovir 1 gram tablet 1,000 mg PO DAILY PRN hsv #30 tabs 12/05/23 12/11/23 Rx (Valtrex) New Prescriptions to Start Prescriptions: Allergies Allergy/AdvReac Type Severity Reaction Status Date / Time No Known Allergies Allergy Verified 11/22/23 14:41 Assessment and Plan *Assessment and plan (1) Cervical radiculopathy: Status: Acute Category: Medical Code(s): M54.12 - Radiculopathy, cervical region (2) Degenerative disc disease, cervical: Status: Acute Category: Medical Code(s): M50.30 - Other cervical disc degeneration, unspecified cervical region (3) Bilateral shoulder pain: Status: Acute Qualifiers: Chronicity: chronic Qualified Code(s): M25.511 - Pain in right shoulder; M25.512 - Pain in left shoulder; G89.29 - Other chronic pain Category: Medical Code(s): M25.511 - Pain in right shoulder; M25.512 - Pain in left shoulder Plan Patient is experiencing significant pain throughout her bilateral shoulders with limited range of motion. I did discuss with the patient that she may benefit from shoulder intra-articular injections. Patient does state that she did have 1 in the past from a different provider years ago and it did really help. Patient states that she would like to proceed forward with this plan of care. She was reviewed over the risk and benefits. I did also discuss with the patient that I will get a copy of her records from [facility] to try and figure out what injection she did get that provided the 2-week improvement. Patient was also counseled that we will also check in and see where we are at with the spinal cord stimulator trial that was submitted. Patient agrees with this plan of care. I will send in a prescription of pregabalin 100 mg 3 times a day and provide a 1 month supply of this medication. Patient will be scheduled for bilateral shoulder intra-articular injections. These will be done without fluoroscopy or ultrasound. Patient has been instructed to contact the clinic with any concerns before the next appointment. Dr. Sage has reviewed this note and agrees with this plan of care. This note was dictated using voice recognition software and make contain errors or omissions. All injections are used with Lidocaine or Bupivacaine and Depo Medrol.
== END 2023-12-11 23:59 | disposition home or self-care (01) ==
PROVIDERS: PCP Internal Medicine Adolescent Medicine; Visit Provider Nurse Practitioner Family
DX: M50.10 Cervical disc disorder with radiculopathy, unspecified cervical region (principal); M25.511 Pain in right shoulder; M25.512 Pain in left shoulder; G89.29 Other chronic pain; F17.210 Nicotine dependence, cigarettes, uncomplicated
CPT/HCPCS: 99212; G0463

== ENCOUNTER 2024-01-02 10:09 | Day surgery (SDC) | payer OTHER, SELFPAY ==
[2024-01-02 10:22] VITALS: BP 127/64; PULSE 62; RESP 16; TEMP 36.8; O2SAT 99; BMI 32.1
[2024-01-02 10:38] VITALS: BP 122/82; PULSE 77; RESP 18; O2SAT 98
[2024-01-02] MEDS: LIDOCAINE 1% 5ML PF VIAL 5 ML (10:38)
[2024-01-02] MEDS: methylPREDNISolone ACETATE 80MG/ML VIAL 80 MG (10:38)
[2024-01-02] MEDS: BUPIVACAINE 0.25% 10ML INJ 25 MG IJ (10:38)
[2024-01-02 10:39] VITALS: BP 122/82; PULSE 76; RESP 18; O2SAT 97
--- NOTE | 2024-01-02 10:53 | P.PCN_ITS ---
Procedure Date: 01/02/24 Time: 10:45 Anesthesiologist:: Jan Kinney CRNA Complications:: None Pre-procedure Diagnosis:: DJD bilateral shoulder. Chronic bilateral shoulder pain. Post-procedure Diagnosis:: Same. Indications for Procedure:: Patient is a pleasant 43-year-old female comes our clinic today for intra- articular injections of the bilateral shoulders. Patient describes bilateral shoulder pain as constant, dull, aching. Patient has 5/5 strength bilateral arms. However, limited range of motion secondary to bilateral shoulder pain. Patient states she has difficulty reaching overhead. Difficulty reaching behind her back. Difficulty sleeping. She rates her pain 7/10. Procedure Details:: Procedure Details: Bilateral shoulder intra-articular injection Informed consent was obtained risk and benefits of the procedure were explained to the patient. Patient was taken to the procedure room. The bilateral shoulder was prepped using ChloraPrep. A 25-gauge needle was used posteriorly to inject 10 mL bupivacaine 0.25% and Depo-Medrol 40 mg into the bilateral shoulder joints. Patient tolerated procedure well with no complications. Plan and Disposition:: Patient was discharged without incident.
[2024-01-02 10:54] VITALS: BP 112/76; PULSE 76; RESP 16; O2SAT 97
== END 2024-01-02 10:54 | disposition home or self-care (01) ==
PROVIDERS: PCP Internal Medicine Adolescent Medicine; Visit Provider Nurse Anesthetist, Certified Registered
DX: M19.011 Primary osteoarthritis, right shoulder (principal); M19.012 Primary osteoarthritis, left shoulder; M25.511 Pain in right shoulder; M25.512 Pain in left shoulder; G89.29 Other chronic pain
CPT/HCPCS: 20610; J1010

== ENCOUNTER 2024-01-19 14:46 | Outpatient (POV) | payer OTHER, SELFPAY ==
--- NOTE | 2024-01-19 15:04 | A.OFFVIS_ITS ---
[facility] Disclaimer: The information contained in this section may have been updated after the patient was seen, as this information can be updated by other users. Medical History High risk sexual behavior MDD (major depressive disorder), recurrent episode Asthma Migraine Eczema Allergies Surgical History History of esophagogastroduodenoscopy (EGD) History of colonoscopy History of neck surgery History of tonsillectomy History of hysterectomy Family History Father Cancer esophageal Other Family history of hypertension Social History Smoking Status: Current every day smoker tobacco type: cigarettes packs per day: 1 second hand exposure: No alcohol intake: never substance use type: denies use current occupational status: other Travel in the last 8 weeks: None household members: children housing: house marital status: caffeine: Yes PM Subjective & Objective Subjective Subjective:: Patient is a pleasant 43-year-old female who presents today for follow-up of bilateral intra-articular shoulder injections on 01/02/2024. Today she rates her pain a 5 out of 10. Patient denies any new trauma or injury. Patient does state that she has had approximately 75% but lasted only 10 days. She is back to her baseline today. She still has chronic pain throughout her neck with radiating symptoms to her bilateral shoulders and numbness and tingling into her bilateral fingers and hands. Patient does state the pain is constant and does interfere with her ability perform activities of daily living such as cooking and cleaning. Patient did previously pass her psychological evaluation and was deemed an appropriate candidate for a stimulator pump however her insurance has denied the spinal cord stimulator. Patient denies any recent imaging of her shoulders. Patient does also make mention that she did end up bringing her most recent lumbar MRI imaging to show physical therapy. She states that physical therapy did help however did nothing for the numbness and weakness in her legs. Patient does have a longstanding history of cervical fusion. Patient is slowly titrating down on her pregabalin and was mostly sent in pregabalin 75 mg 3 times a day with than 1 month supply. She denies any side effects. She does state that she has noticed some increasing pain with titrating down however she still would like to proceed forward with coming off of this medication as she does not like taking oral medicines. Her Jose has been reviewed and is appropriate. Review of Systems: General: No recent weight changes, no fever, no sleep disturbances Respiratory: No cough, no shortness of air, no recurring pulmonary infections Cardiovascular/peripheral vascular: No chest pain, no palpitations, no edema, no shortness of breath Gastrointestinal: No new onset incontinence, normal bowel movements reported Genitourinary: No new onset incontinence Musculoskeletal: Chronic neck pain, hand numbness tingling, shoulder pain, leg pain Psychiatric: [Normal mood/affect] Neurological: [Denies weakness in extremities], [denies balance issues] Pain at rest (0-10 scale): 5 Objective Objective:: Physical Exam: General: Alert and oriented x3, no acute distress, pleasant and cooperative Lungs: Respirations even and unlabored, symmetrical chest expansion Eyes: PERRL Musculoskeletal: Flexion and extension of bilateral shoulders, cervical [spine] somewhat guarded secondary to pain, [antalgic gait noted] Neurological: Speech clear, no gross sensory deficit Has patient had previous pain injection?: Yes Percent improvement in pain since last injection: 75% Conservative treatment options previously tried: Home exercise plan Length of treatment: Longer than 12 weeks and Physical Therapy Length of treatment: Ongoing Meds Home Medications and Allergies Home Medications ?Medication ?Instructions ?Recorded ?Confirmed ?Type loratadine 10 mg tablet (Claritin) 10 mg PO DAILY Allergy symptoms 03/13/18 01/19/24 History B-complex with vitamin C 1 cap PO DAILY Supplement 12/09/20 01/19/24 History cholecalciferol (vitamin D3) 50 50 mcg PO DAILY Supplement 12/09/20 01/19/24 History mcg (2,000 unit) capsule magnesium 30 mg tablet 30 mg PO DAILY Supplement 12/09/20 01/19/24 History clobetasol 0.05 % scalp solution 1 ml topical DAILY exzema 06/08/21 01/19/24 History duloxetine 60 mg capsule,delayed 60 mg PO .2 tablets QD Depression 05/18/22 01/19/24 History release acetaminophen 500 mg tablet 500 mg PO Q6H PRN Pain 01/19/23 01/19/24 History (Tylenol Extra Strength) diclofenac potassium 50 mg tablet 50 mg PO BID #60 tabs 06/12/23 01/19/24 Rx bupropion HCl 300 mg 24 hr tablet, 300 mg PO DAILY 09/26/23 01/19/24 History extended release thiamine HCl (vitamin B1) 100 mg 100 mg PO DAILY 09/26/23 01/19/24 History tablet spironolactone 100 mg tablet See Rx Instructions .Route 10/31/23 01/19/24 Rx .COMPLEX #30 tabs famotidine 20 mg tablet 20 mg PO BID 11/22/23 01/19/24 History naproxen 500 mg tablet 500 mg PO BID 11/22/23 01/19/24 History nicotine 21 mg/24 hr daily 30 mg transdermal DIRECTED 11/22/23 01/19/24 History transdermal patch omeprazole 20 mg capsule,delayed 20 mg PO DAILY #30 caps 11/22/23 01/19/24 Rx release valacyclovir 1 gram tablet 1,000 mg PO DAILY PRN hsv #30 tabs 12/05/23 01/19/24 Rx (Valtrex) pregabalin 100 mg capsule 100 mg PO TID #90 caps 12/11/23 01/19/24 Rx baclofen 10 mg tablet See Rx Instructions .Route 12/27/23 01/19/24 Rx .COMPLEX #60 tabs pregabalin 150 mg capsule (Lyrica) 150 mg PO TID #90 caps 01/15/24 01/19/24 Rx pregabalin 75 mg capsule (Lyrica) 75 mg PO TID #90 caps 01/15/24 01/19/24 Rx New Prescriptions to Start Prescriptions: Allergies Allergy/AdvReac Type Severity Reaction Status Date / Time No Known Allergies Allergy Verified 11/22/23 14:41 Assessment and Plan *Assessment and plan (1) Bilateral shoulder pain: Status: Acute Qualifiers: Chronicity: chronic Qualified Code(s): M25.511 - Pain in right shoulder; M25.512 - Pain in left shoulder; G89.29 - Other chronic pain Category: Medical Code(s): M25.511 - Pain in right shoulder; M25.512 - Pain in left shoulder (2) History of fusion of cervical spine: Status: Acute Category: Surgical Code(s): Z98.1 - Arthrodesis status (3) Cervical radiculopathy: Status: Acute Category: Medical Code(s): M54.12 - Radiculopathy, cervical region (4) Degenerative disc disease, cervical: Status: Acute Category: Medical Code(s): M50.30 - Other cervical disc degeneration, unspecified cervical region (5) Chronic pain syndrome: Status: Acute Category: Medical Code(s): G89.4 - Chronic pain syndrome Plan I did discuss with the patient due to her longstanding chronic pain in her bilateral shoulders that I would like to order some updated x-rays and MRIs without contrast of her bilateral shoulders to see whether or not if she does have any specific tears or injuries or whether this is all stemming from her neck. Patient does have a history of cervical fusion and due to the fact that she does also have chronic neck and low back symptoms I did discuss that I do believe she would benefit from a intrathecal pain pump trial. Risk and benefits were discussed with the patient and she would like to proceed forward with this plan of care. Patient has already had a psychological evaluation and was deemed an appropriate candidate for this device. We will submit to insurance for the intrathecal pain pump under fluoroscopy and will proceed forward with the implant if she does have significant improvement through this therapy. Patient has tried and failed conservative therapy including continued at home stretching and exercise for longer than 12 weeks and ongoing physical therapy. We will also plan on titrating her down in her pregabalin to 50 mg 3 times daily at her next refill. Patient agrees with this plan of care. Patient has been instructed to contact the clinic with any concerns before the next appointment. Dr. Sage has reviewed this note and agrees with this plan of care. This note was dictated using voice recognition software and make contain errors or omissions. All injections are used with Lidocaine or Bupivacaine and Depo Medrol.
[2024-01-19 15:33] VITALS: BP 125/74; PULSE 84; RESP 14; O2SAT 97; BMI 32.1
--- NOTE | 2024-01-19 15:39 | XR_ITS ---
FINAL REPORT CLINICAL HISTORY: SHOULDER PAIN, NUMBNESS, TINGLING RADIATING DOWN ARMS COMPARISON: None FINDINGS: RIGHT SHOULDER 3 views demonstrate no acute fracture or dislocation. The joint spaces appear normal. The visualized bony structures are well aligned. No soft tissue abnormality is seen. IMPRESSION: No acute process. Reviewed, Interpreted and Dictated by Alvaro Manrique III, MD Transcribed by Naida Avila Authenticated and [facility]
--- NOTE | 2024-01-19 15:39 | XR_ITS ---
FINAL REPORT CLINICAL HISTORY: .pain, numbness, tingling radiating down arms COMPARISON: None FINDINGS: LEFT SHOULDER 3 views demonstrate no acute fracture or dislocation. The joint spaces appear normal. The visualized bony structures are well aligned. No soft tissue abnormality is seen. IMPRESSION: No acute process. Reviewed, Interpreted and Dictated by Alvaro Manrique III, MD Transcribed by Naida Avila Authenticated and [facility]
== END 2024-01-19 23:59 | disposition home or self-care (01) ==
PROVIDERS: PCP Internal Medicine Adolescent Medicine; Visit Provider Nurse Practitioner Family
DX: M25.511 Pain in right shoulder (principal); M25.512 Pain in left shoulder; Z98.1 Arthrodesis status; M50.10 Cervical disc disorder with radiculopathy, unspecified cervical region; G89.4 Chronic pain syndrome; F17.210 Nicotine dependence, cigarettes, uncomplicated; Z73.89 Other problems related to life management difficulty; Z79.899 Other long term (current) drug therapy
CPT/HCPCS: 73030; 99212; G0463

== ENCOUNTER 2024-02-08 09:45 | Outpatient (CLI) | payer OTHER, SELFPAY ==
--- NOTE | 2024-02-08 09:57 | MR_ITS ---
FINAL REPORT CLINICAL HISTORY: SHOULDER PAIN. PAIN AND NUMBNESS IN RIGHT ARM AND SHOULDER. WEAKNESS IN ARM. NO INJURY OR TRAUMA FINDINGS: Multi planar MR imaging of the right shoulder was performed. The supraspinatus tendon appears intact. However, there is a heterogeneous abnormal signal in the distal supraspinatus tendon probably due to tendinosis. There is no abnormal fluid in the subacromial/subdeltoid bursa. The anterior and posterior glenoid elli appear intact. The subscapularis tendon is intact. The biceps tendon appears intact. There are mild hypertrophic changes at the acromioclavicular joint. IMPRESSION: Tendinosis of the distal supraspinatus tendon without evidence of full-thickness tendon tear. Reviewed, Interpreted and Dictated by Harvinder Frias MD Transcribed by Verenice Jean Authenticated and . [facility]
== END 2024-02-08 23:59 | disposition home or self-care (01) ==
LOC: RAD 09:46
PROVIDERS: PCP Internal Medicine Adolescent Medicine; Visit Provider Nurse Practitioner Family
DX: M25.511 Pain in right shoulder (principal); M25.512 Pain in left shoulder
CPT/HCPCS: 73221

== ENCOUNTER 2024-02-15 15:06 | Outpatient (POV) | payer OTHER, SELFPAY ==
[2024-02-15 16:10] VITALS: BP 124/78; PULSE 75; RESP 14; O2SAT 97; BMI 32.1
--- NOTE | 2024-02-15 16:32 | A.OFFVIS_ITS ---
[facility] Disclaimer: The information contained in this section may have been updated after the patient was seen, as this information can be updated by other users. Medical History High risk sexual behavior MDD (major depressive disorder), recurrent episode Asthma Migraine Eczema Allergies Surgical History History of esophagogastroduodenoscopy (EGD) History of colonoscopy History of neck surgery History of tonsillectomy History of hysterectomy Family History Father Cancer esophageal Other Family history of hypertension Social History Smoking Status: Current every day smoker tobacco type: cigarettes packs per day: 1 second hand exposure: No alcohol intake: never substance use type: denies use current occupational status: other Travel in the last 8 weeks: None household members: children housing: house marital status: caffeine: Yes PM Subjective & Objective Subjective Subjective:: Patient is a pleasant 43-year-old female who presents today for follow-up of right shoulder MRI. Today she rates her pain a 9 out of 10. Patient denies any new trauma or injury. She still has chronic pain throughout her neck with radiating symptoms to her bilateral shoulders and numbness and tingling into her bilateral fingers and hands. She does state that she has altered completions manager and frequently drops things. She states that it is very bothersome. Patient does state the pain is constant and does interfere with her ability perform activities of daily living such as cooking and cleaning. Patient does have a longstanding history of cervical fusion. Patient is slowly titrating down on her pregabalin and was mostly sent in pregabalin 75 mg 3 times a day with than 1 month supply. She denies any side effects. Patient does state that her biggest complaint with the pregabalin was weight gain. She states that she feels like this is aggravated a lot of her overall pain symptoms and is hoping if she is able to come off this medication that some of the weight will also come off. Her Jose has been reviewed and is appropriate. Review of Systems: General: No recent weight changes, no fever, no sleep disturbances Respiratory: No cough, no shortness of air, no recurring pulmonary infections Cardiovascular/peripheral vascular: No chest pain, no palpitations, no edema, no shortness of breath Gastrointestinal: No new onset incontinence, normal bowel movements reported Genitourinary: No new onset incontinence Musculoskeletal: Chronic neck pain, hand numbness tingling, shoulder pain, hand weakness Psychiatric: [Normal mood/affect] Neurological: [Denies weakness in extremities], [denies balance issues] Pain at rest (0-10 scale): 9 Objective Objective:: Physical Exam: General: Alert and oriented x3, no acute distress, pleasant and cooperative Lungs: Respirations even and unlabored, symmetrical chest expansion Eyes: PERRL Musculoskeletal: Flexion and extension of cervical [spine] somewhat guarded secondary to pain, [antalgic gait noted] positive Spurling's test Neurological: Speech clear, no gross sensory deficit Has patient had previous pain injection?: No Conservative treatment options previously tried: Home exercise plan Length of treatment: Longer than 12 weeks Meds Home Medications and Allergies Home Medications ?Medication ?Instructions ?Recorded ?Confirmed ?Type loratadine 10 mg tablet (Claritin) 10 mg PO DAILY Allergy symptoms 03/13/18 02/15/24 History B-complex with vitamin C 1 cap PO DAILY Supplement 12/09/20 02/15/24 History cholecalciferol (vitamin D3) 50 50 mcg PO DAILY Supplement 12/09/20 02/15/24 History mcg (2,000 unit) capsule magnesium 30 mg tablet 30 mg PO DAILY Supplement 12/09/20 02/15/24 History clobetasol 0.05 % scalp solution 1 ml topical DAILY exzema 06/08/21 02/15/24 History duloxetine 60 mg capsule,delayed 60 mg PO .2 tablets QD Depression 05/18/22 02/15/24 History release acetaminophen 500 mg tablet 500 mg PO Q6H PRN Pain 01/19/23 02/15/24 History (Tylenol Extra Strength) diclofenac potassium 50 mg tablet 50 mg PO BID #60 tabs 06/12/23 02/15/24 Rx bupropion HCl 300 mg 24 hr tablet, 300 mg PO DAILY 09/26/23 02/15/24 History extended release thiamine HCl (vitamin B1) 100 mg 100 mg PO DAILY 09/26/23 02/15/24 History tablet spironolactone 100 mg tablet See Rx Instructions .Route 10/31/23 02/15/24 Rx .COMPLEX #30 tabs famotidine 20 mg tablet 20 mg PO BID 11/22/23 02/15/24 History naproxen 500 mg tablet 500 mg PO BID 11/22/23 02/15/24 History nicotine 21 mg/24 hr daily 30 mg transdermal DIRECTED 11/22/23 02/15/24 History transdermal patch omeprazole 20 mg capsule,delayed 20 mg PO DAILY #30 caps 11/22/23 02/15/24 Rx release valacyclovir 1 gram tablet 1,000 mg PO DAILY PRN hsv #30 tabs 12/05/23 02/15/24 Rx (Valtrex) pregabalin 100 mg capsule 100 mg PO TID #90 caps 12/11/23 02/15/24 Rx pregabalin 150 mg capsule (Lyrica) 150 mg PO TID #90 caps 01/15/24 02/15/24 Rx pregabalin 75 mg capsule (Lyrica) 75 mg PO TID #90 caps 01/15/24 02/15/24 Rx baclofen 10 mg tablet See Rx Instructions .Route 01/22/24 02/15/24 Rx .COMPLEX #60 tabs New Prescriptions to Start Prescriptions: Allergies Allergy/AdvReac Type Severity Reaction Status Date / Time No Known Allergies Allergy Verified 11/22/23 14:41 Assessment and Plan *Assessment and plan (1) Chronic pain syndrome: Status: Acute Category: Medical Code(s): G89.4 - Chronic pain syndrome (2) Bilateral shoulder pain: Status: Acute Qualifiers: Chronicity: chronic Qualified Code(s): M25.511 - Pain in right shoulder; M25.512 - Pain in left shoulder; G89.29 - Other chronic pain Category: Medical Code(s): M25.511 - Pain in right shoulder; M25.512 - Pain in left shoulder (3) Degenerative disc disease, cervical: Status: Acute Category: Medical Code(s): M50.30 - Other cervical disc degeneration, unspecified cervical region (4) Cervical radiculopathy: Status: Acute Category: Medical Code(s): M54.12 - Radiculopathy, cervical region (5) History of fusion of cervical spine: Status: Acute Category: Surgical Code(s): Z98.1 - Arthrodesis status Plan Patient continues to experience significant pain throughout her neck with numbness and tingling and altered completions manager in her bilateral hands. Patient did have limited range of motion of her cervical spine with a positive Spurling's test. I did discuss with the patient regarding that she may benefit from a repeat cervical epidural steroid injection. Patient did have previously 1 back in June that did provide 50% relief however did not last as well as the one prior to that done at [facility] pain [facility] spine. Patient was discussed the risk and benefits and she would like to proceed forward with this plan of care. Patient has tried and failed conservative therapy including continued at home stretching exercise for longer than 12 weeks that was physician guided. Patient does have a longstanding history of cervical fusion. Patient will be scheduled for a LEIGHA C4-C5 under fluoroscopy. I will also send in the next prescription of the pregabalin titrating her down to 50 mg 3 times a day. Patient agrees with this plan of care. We did also review over her MRI of her right shoulder and are still pending on her left shoulder MRI. Patient has been instructed to contact the clinic with any concerns before the next appointment. Dr. Sage has reviewed this note and agrees with this plan of care. This note was dictated using voice recognition software and make contain errors or omissions. All injections are used with Lidocaine, Bupivacaine and Depo Medrol. Occasionally urine drug screen is needed to verify patient's compliance with our office pain contract. This is ordered based off specific treatments related to chronic pain with the potential to abuse certain medications.
== END 2024-02-15 23:59 | disposition home or self-care (01) ==
PROVIDERS: PCP Internal Medicine Adolescent Medicine; Visit Provider Nurse Practitioner Family
DX: G89.4 Chronic pain syndrome (principal); M25.511 Pain in right shoulder; M25.512 Pain in left shoulder; M50.10 Cervical disc disorder with radiculopathy, unspecified cervical region; Z98.1 Arthrodesis status; F17.210 Nicotine dependence, cigarettes, uncomplicated; Z73.89 Other problems related to life management difficulty; Z79.899 Other long term (current) drug therapy
CPT/HCPCS: 99212; G0463

== ENCOUNTER 2024-03-05 07:32 | Outpatient (CLI) | payer OTHER, SELFPAY ==
--- NOTE | 2024-03-05 07:34 | MR_ITS ---
FINAL REPORT CLINICAL HISTORY: LEFT SHOULDER PAIN and numbness. no injury or trauma. COMPARISON: None FINDINGS: Multi planar MR imaging of the left shoulder was performed. The supraspinatus tendon appears intact. There is no abnormal fluid in the subacromial/subdeltoid bursa. The anterior and posterior glenoid elli appear intact. The biceps tendon appears intact. There is mild hypertrophic change of the acromioclavicular joint. Mild bone marrow edema is present in the distal clavicle. IMPRESSION: Mild acromioclavicular hypertrophic change, with mild bone marrow edema in the distal clavicle. Otherwise, unremarkable MRI of the left shoulder. Reviewed, Interpreted and Dictated by Harvinder Frias MD Transcribed by Beth Mancini Authenticated and [facility]
== END 2024-03-05 23:59 | disposition home or self-care (01) ==
LOC: RAD 07:32
PROVIDERS: PCP Internal Medicine Adolescent Medicine; Visit Provider Anesthesiology
DX: M25.512 Pain in left shoulder (principal); G89.29 Other chronic pain
CPT/HCPCS: 73221

== ENCOUNTER 2024-03-05 13:48 | Day surgery (SDC) | payer OTHER, SELFPAY ==
[2024-03-05 14:06] VITALS: BP 135/68; PULSE 81; RESP 16; O2SAT 97; BMI 30.8
[2024-03-05 14:22] VITALS: BP 143/94; PULSE 80; RESP 18; O2SAT 100
--- NOTE | 2024-03-05 14:22 | P.PCN_ITS ---
Procedure Date: 03/05/24 Time: 14:10 Anesthesiologist:: Jan Kinney CRNA Complications:: None Pre-procedure Diagnosis:: Degenerative disc cervical spine multilevels. Cervical radiculopathy. Cervical postlaminectomy syndrome. Disc bulge cervical spine multiple levels. Post-procedure Diagnosis:: Same. Indications for Procedure:: Patient is a pleasant 43-year-old female who comes our clinic today for cervical epidural steroid injection. Patient is status post ACDF at the C5-6 level. She describes posterior cervical neck pain as constant, dull, aching. Also, bilateral arm radicular symptoms at times. She rates her pain today 6/10. Procedure Details:: Procedure:Cervical epidural steroid injection Informed consent was obtained and the risks and benefits of the procedure were explained to the patient. The patient was taken to the procedure room and noninvasive monitors placed, including noninvasive blood pressure cuff and pulse oximeter. The neck was prepped using Chloraprep as a cleansing solution. The C6- C7 interspace was viewed using fluroscopy. The skin and subcutaneous tissues were anesthetized using lidocaine 1.5% and a 25-gauge needle. After this an 18- gauge Touhy epidural needle was placed into the C6-C7 interspace under fluroscopy guidance and advanced using loss of resistance to air until the epidural space was encountered. After confirmation of needle placement in the epidural space using contrast dye, a solution containing normal saline, 2 mL and Depo-Medrol 80 mg was incrementally injected into the cervical epidural space.~ The patient tolerated the procedure well with no complications. The patient was observed in the Pain Clinic and then discharged home neurologically intact. Plan and Disposition:: Patient was discharged without incident.
[2024-03-05 14:47] VITALS: BP 135/96; PULSE 89; RESP 18; O2SAT 96
[2024-03-05 14:48] VITALS: BP 135/96; PULSE 89; RESP 18; O2SAT 96
== END 2024-03-05 14:22 | disposition home or self-care (01) ==
PROVIDERS: PCP Internal Medicine Adolescent Medicine; Visit Provider Nurse Anesthetist, Certified Registered
DX: M50.30 Other cervical disc degeneration, unspecified cervical region (principal); M54.12 Radiculopathy, cervical region; M96.1 Postlaminectomy syndrome, not elsewhere classified
CPT/HCPCS: 62321; J1010

== ENCOUNTER 2024-03-18 10:14 | Outpatient (POV) | payer OTHER, SELFPAY ==
--- NOTE | 2024-03-18 10:26 | EXP.PAIN.SOA ---
[facility] Disclaimer: The information contained in this section may have been updated after the patient was seen, as this information can be updated by other users. Medical History High risk sexual behavior MDD (major depressive disorder), recurrent episode Asthma Migraine Eczema Allergies Surgical History History of esophagogastroduodenoscopy (EGD) History of colonoscopy History of neck surgery History of tonsillectomy History of hysterectomy Family History Father Cancer esophageal Other Family history of hypertension Social History Smoking Status: Current every day smoker tobacco type: cigarettes packs per day: 1 second hand exposure: No alcohol intake: never substance use type: denies use current occupational status: other Travel in the last 8 weeks: None household members: children housing: house marital status: caffeine: Yes Have you lived/traveled outside US in past 30 days?: No Contact w/someone who lives/traveled outside US past 30 days?: No Exposure to someone with infectious disease in past 14 days?: No Do you have a fever (greater than 100.4 F or 38 C)?: No Have you tested positive for COVID-19: No Exposed to someone with COVID-19 in past 14 days?: No Do you have a sore throat?: No Do you have a cough?: No Do you have any weakness?: No Do you have any diarrhea?: No Are you experiencing any unusual bleeding?: No Do you have any muscle aches/pain?: No Do you have any abdominal pain?: No Are you experiencing loss of taste or smell?: No PM Subjective & Objective Subjective Subjective:: Patient is a pleasant [age]-year-old female who presents today for follow-up of cervical epidural steroid injection at C6 -C7. Today she rates her pain a 7 out of 10. Patient denies any new trauma or injury. She does find that the injection helped however only about 5 times. She states that she is back to her baseline. She does also states she still having quite a bit of problems with her bilateral shoulders and did have to reschedule her shoulder injections due to having an EGD the very next day that she was scheduled for the injections. Patient is still titrating down of the pregabalin and is currently on 50 mg 3 times a day. She denies any side effects. Patient did have a lot of weight gain with the pregabalin and wanted to come off this medication. She does state that she would still like to proceed forward with the continuation of tapering this medication to come off of it. She does also state that she still he is wanting to proceed forward with the pump trial. Her Jose has been reviewed and is appropriate. Review of Systems: General: No recent weight changes, no fever, no sleep disturbances Respiratory: No cough, no shortness of air, no recurring pulmonary infections Cardiovascular/peripheral vascular: No chest pain, no palpitations, no edema, no shortness of breath Gastrointestinal: No new onset incontinence, normal bowel movements reported Genitourinary: No new onset incontinence Musculoskeletal: Bilateral shoulder pain, chronic neck pain Psychiatric: [Normal mood/affect] Neurological: [Denies weakness in extremities], [denies balance issues] Pain at rest (0-10 scale): 7 Objective Objective:: Physical Exam: General: Alert and oriented x3, no acute distress, pleasant and cooperative Lungs: Respirations even and unlabored, symmetrical chest expansion Eyes: PERRL Musculoskeletal: Flexion and extension of bilateral shoulders somewhat guarded secondary to pain Neurological: Speech clear, no gross sensory deficit Has patient had previous pain injection?: Yes Percent improvement in pain since last injection: 5 days Conservative treatment options previously tried: Home exercise plan Length of treatment: Longer than 12 weeks Meds Home Medications and Allergies Home Medications ?Medication ?Instructions ?Recorded ?Confirmed ?Type loratadine 10 mg tablet (Claritin) 10 mg PO DAILY Allergy symptoms 03/13/18 03/05/24 History B-complex with vitamin C 1 cap PO DAILY Supplement 12/09/20 03/05/24 History cholecalciferol (vitamin D3) 50 50 mcg PO DAILY Supplement 12/09/20 03/05/24 History mcg (2,000 unit) capsule magnesium 30 mg tablet 30 mg PO DAILY Supplement 12/09/20 03/05/24 History clobetasol 0.05 % scalp solution 1 ml topical DAILY exzema 06/08/21 03/05/24 History duloxetine 60 mg capsule,delayed 60 mg PO .2 tablets QD Depression 05/18/22 03/05/24 History release acetaminophen 500 mg tablet 500 mg PO Q6H PRN Pain 01/19/23 03/05/24 History (Tylenol Extra Strength) bupropion HCl 300 mg 24 hr tablet, 300 mg PO DAILY 09/26/23 03/05/24 History extended release thiamine HCl (vitamin B1) 100 mg 100 mg PO DAILY 09/26/23 03/05/24 History tablet spironolactone 100 mg tablet See Rx Instructions .Route 10/31/23 03/05/24 Rx .COMPLEX #30 tabs famotidine 20 mg tablet 20 mg PO BID 11/22/23 03/05/24 History naproxen 500 mg tablet 500 mg PO BID 11/22/23 03/05/24 History omeprazole 20 mg capsule,delayed 20 mg PO DAILY #30 caps 11/22/23 03/05/24 Rx release valacyclovir 1 gram tablet 1,000 mg PO DAILY PRN hsv #30 tabs 12/05/23 03/05/24 Rx (Valtrex) pregabalin 50 mg capsule 50 mg PO TID #90 caps 02/15/24 03/05/24 Rx baclofen 10 mg tablet See Rx Instructions .Route 02/20/24 03/05/24 Rx .COMPLEX #60 tabs New Prescriptions to Start Prescriptions: Allergies Allergy/AdvReac Type Severity Reaction Status Date / Time No Known Allergies Allergy Verified 02/22/24 12:42 Assessment and Plan *Assessment and plan (1) Chronic pain syndrome: Status: Acute Category: Medical Code(s): G89.4 - Chronic pain syndrome (2) Bilateral shoulder pain: Status: Acute Qualifiers: Chronicity: chronic Qualified Code(s): M25.511 - Pain in right shoulder; M25.512 - Pain in left shoulder; G89.29 - Other chronic pain Category: Medical Code(s): M25.511 - Pain in right shoulder; M25.512 - Pain in left shoulder (3) Degenerative disc disease, cervical: Status: Acute Category: Medical Code(s): M50.30 - Other cervical disc degeneration, unspecified cervical region (4) Cervical radiculopathy: Status: Acute Category: Medical Code(s): M54.12 - Radiculopathy, cervical region Plan Patient only had very temporary relief with her cervical epidural. Patient does have a history of cervical fusion and is scheduled to meet with the orthospine team later this afternoon there in [place]. She states she is unsure whether or not if they are going to want to do additional surgery. Patient is already scheduled for her bilateral shoulder intra-articular injections coming up and I did discuss with her that we will tentatively try and aim for April for her pump trial. Patient agrees with this plan of care. I will send in a 2-month supply of pregabalin 25 mg 3 times daily. Patient was counseled that for 1 month I would like her to do 3 times a day however the second month to plan for taking it twice a day for 2 weeks and then 2 weeks once a day and then she can completely come off this medication. Patient agrees with this plan of care. I did also family and marriage counsellor the patient if they decide they want to proceed forward with surgical intervention and they do not want her to have any steroids to please call our office and let us know and we will postpone her shoulder injections. Patient agrees with this plan of care. Patient has been instructed to contact the clinic with any concerns before the next appointment. Dr. Sage has reviewed this note and agrees with this plan of care. This note was dictated using voice recognition software and make contain errors or omissions. All injections are used with Lidocaine, Bupivacaine and Depo Medrol. Occasionally urine drug screen is needed to verify patient's compliance with our office pain contract. This is ordered based off specific treatments related to chronic pain with the potential to abuse certain medications.
[2024-03-18 13:58] VITALS: BP 129/79; PULSE 77; RESP 18; O2SAT 96; BMI 31.0
== END 2024-03-18 23:59 | disposition home or self-care (01) ==
PROVIDERS: PCP Internal Medicine Adolescent Medicine; Visit Provider Nurse Practitioner Family
DX: G89.4 Chronic pain syndrome (principal); M25.511 Pain in right shoulder; M25.512 Pain in left shoulder; M50.10 Cervical disc disorder with radiculopathy, unspecified cervical region; F17.210 Nicotine dependence, cigarettes, uncomplicated; Z79.899 Other long term (current) drug therapy
CPT/HCPCS: 99212; G0463

== ENCOUNTER 2024-04-10 06:11 | Day surgery (SDC) | payer OTHER, SELFPAY ==
[2024-04-08 15:58] VITALS: BMI 30.5
[2024-04-10 06:57] VITALS: BP 129/74; PULSE 78; RESP 18; TEMP 36.8; O2SAT 100
[2024-04-10] MEDS: LACTATED RINGERS 1000ML 1,000 ML 50 ML IV (07:13)
--- NOTE | 2024-04-10 07:25 | EXP.ANES.CKL ---
[facility] Disclaimer: The information contained in this section may have been updated after the patient was seen, as this information can be updated by other users. Medical History High risk sexual behavior MDD (major depressive disorder), recurrent episode Asthma Migraine Eczema Allergies Surgical History History of esophagogastroduodenoscopy (EGD) History of colonoscopy History of neck surgery History of tonsillectomy History of hysterectomy Family History (Updated 04/10/24 @ 07:09 by Zeenat Preciado RN) Father Cancer Other Esophageal cancer Family history of hypertension Hyperlipidemia Lung cancer Social History (Updated 04/10/24 @ 07:10 by Zeenat Preciado RN) Smoking Status: Current every day smoker tobacco type: cigarettes packs per day: 1 second hand exposure: No alcohol intake: never substance use type: denies use current occupational status: unemployed Travel in the last 8 weeks: None household members: children housing: house marital status: caffeine: Yes Have you lived/traveled outside US in past 30 days?: No Contact w/someone who lives/traveled outside US past 30 days?: No Exposure to someone with infectious disease in past 14 days?: No Do you have a fever (greater than 100.4 F or 38 C)?: No Have you tested positive for COVID-19: Yes Exposed to someone with COVID-19 in past 14 days?: No Do you have a sore throat?: No Do you have a cough?: No Do you have any weakness?: No Are you experiencing any nausea/vomitting?: No Do you have any diarrhea?: No Are you experiencing any unusual bleeding?: No Do you have any muscle aches/pain?: No Do you have any abdominal pain?: No Are you experiencing loss of taste or smell?: No [facility] Anesthesia Checklist Patient Identification Patient Identification: Arm Band Structural Data Admitted From: Home Planned Operative Procedure/s: EGD Consent for Planned Operative Procedure(s) Verified: Yes Verified Documents: Surgical Consent and History and Physical NPO Status Verified Time NPO: 00:00 Additional verifications Anesthesia Reactions: No Airway Assessment Mallampati Score:: Class II C-Spine Mobility Assessed: Yes TMJ Mobility Assessed: Yes Dentition: Good Dentition Neurological Assessment Level of Consciousness: Awake, Alert and Appropriate Anesthesia Plan Anesthesia Risk discussed: Yes Anesthesia Plan: Verified ASA Class: II Anesthesia Type: MAC
--- NOTE | 2024-04-10 07:56 | EXP.HP ---
History of Present Illness *Admission Date: 04/10/24 *Reason for visit:: Dysphagia/globus sensation *History of present illness: Ms. oGodman is a 44-year-old female who is here for dysphagia/globus sensation. The examination is deemed medically necessary for diagnostic/therapeutic EGD. The patient has been seen, interviewed and examined prior to the procedure by both myself and the anesthesia provider. [facility] Disclaimer: The information contained in this section may have been updated after the patient was seen, as this information can be updated by other users. Medical History High risk sexual behavior MDD (major depressive disorder), recurrent episode Asthma Migraine Eczema Allergies Surgical History History of esophagogastroduodenoscopy (EGD) History of colonoscopy History of neck surgery History of tonsillectomy History of hysterectomy Family History (Updated 04/10/24 @ 07:09 by Zeenat Preciado RN) Father Cancer Other Esophageal cancer Family history of hypertension Hyperlipidemia Lung cancer Social History (Updated 04/10/24 @ 07:10 by Zeenat Preciado RN) Smoking Status: Current every day smoker tobacco type: cigarettes packs per day: 1 second hand exposure: No alcohol intake: never substance use type: denies use current occupational status: unemployed Travel in the last 8 weeks: None household members: children housing: house marital status: caffeine: Yes Have you lived/traveled outside US in past 30 days?: No Contact w/someone who lives/traveled outside US past 30 days?: No Exposure to someone with infectious disease in past 14 days?: No Do you have a fever (greater than 100.4 F or 38 C)?: No Have you tested positive for COVID-19: Yes Exposed to someone with COVID-19 in past 14 days?: No Do you have a sore throat?: No Do you have a cough?: No Do you have any weakness?: No Are you experiencing any nausea/vomitting?: No Do you have any diarrhea?: No Are you experiencing any unusual bleeding?: No Do you have any muscle aches/pain?: No Do you have any abdominal pain?: No Are you experiencing loss of taste or smell?: No Other Medical History Have you received the Flu Vaccine for this season: No Have you received the Pneumonia Vaccine: No Review of Systems Review of Systems Review of systems (narrative): Negative *Cardiovascular Comments: Negative *Gastrointestinal Comments: Negative *Genitourinary Comments: Negative *Musculoskeletal Comments: Negative *Neurologic Comments: Negative Meds Home Medications and Allergies Home Medications ?Medication ?Instructions ?Recorded ?Confirmed ?Type B-complex with vitamin C 1 cap PO DAILY Supplement 12/09/20 04/08/24 History cholecalciferol (vitamin D3) 50 50 mcg PO DAILY Supplement 12/09/20 04/08/24 History mcg (2,000 unit) capsule magnesium 30 mg tablet 30 mg PO DAILY Supplement 12/09/20 04/08/24 History clobetasol 0.05 % scalp solution 1 ml topical DAILY exzema 06/08/21 04/08/24 History duloxetine 60 mg capsule,delayed 60 mg PO .2 tablets QD Depression 05/18/22 04/08/24 History release acetaminophen 500 mg tablet 500 mg PO Q6H PRN Pain 01/19/23 04/08/24 History (Tylenol Extra Strength) bupropion HCl 300 mg 24 hr tablet, 300 mg PO DAILY 09/26/23 04/08/24 History extended release thiamine HCl (vitamin B1) 100 mg 100 mg PO DAILY 09/26/23 04/08/24 History tablet spironolactone 100 mg tablet See Rx Instructions .Route 10/31/23 04/08/24 Rx .COMPLEX #30 tabs famotidine 20 mg tablet 20 mg PO HS 11/22/23 04/10/24 History naproxen 500 mg tablet 500 mg PO BID 11/22/23 04/08/24 History omeprazole 20 mg capsule,delayed 20 mg PO DAILY #30 caps 11/22/23 04/08/24 Rx release valacyclovir 1 gram tablet 1,000 mg PO DAILY PRN hsv #30 tabs 12/05/23 04/10/24 Rx (Valtrex) baclofen 10 mg tablet See Rx Instructions .Route 02/20/24 04/08/24 Rx .COMPLEX #60 tabs pregabalin 25 mg capsule 25 mg PO TID #90 caps 03/18/24 04/08/24 Rx fexofenadine 60 mg-pseudoephedrine 1 tab PO DAILY 04/08/24 04/08/24 History ER 120 mg tablet,ext.release,12 hr (Mimi-D 12 Hour) New Prescriptions to Start Prescriptions: Allergies Allergy/AdvReac Type Severity Reaction Status Date / Time No Known Allergies Allergy Verified 04/10/24 06:57 Exam Data for Last 24 hours Vital signs and Labs for Last 24 Hours: Temp Pulse Resp BP Pulse Ox O2 Del Method 98.3 F 78 18 129/74 100 Room Air 04/10/24 06:57 04/10/24 06:57 04/10/24 06:57 04/10/24 06:57 04/10/24 06:57 04/10/24 06:57 I & O for Last 24 hours: Intake & Output 04/07/24 04/08/24 04/09/24 04/10/24 23:59 23:59 23:59 23:59 Weight 195 lb *Routine HEENT Exam Head: Present normocephalic Eye: Present EOMI and PERRL ENT: Present mucous membranes moist *Routine Neck Exam Neck: Present supple *Routine Respiratory Exam Respiratory: Present CTA bilaterally *Routine Cardiovascular Exam Cardiovascular: Present RRR *Routine Abdominal Exam Abdominal: Present soft and normoactive bowel sounds; Absent tenderness *Routine Rectal Exam Rectal:: deferred *Routine Genitalia Exam Genitalia:: deferred *Routine Extremities Exam Extremities: Absent cyanosis, clubbing or edema *Routine Skin Exam Skin: Present warm; Absent rash *Routine Neurological Exam Neurological: Present alert and oriented X3 Assessment and Plan *Assessment and plan (1) Dysphagia: Problem Comment: Under evaluation at [facility]?GI Status: Chronic Qualifiers: Dysphagia type: unspecified Qualified Code(s): R13.10 - Dysphagia, unspecified Category: Medical Code(s): R13.10 - Dysphagia, unspecified (2) Globus sensation: Status: Acute Category: Medical Code(s): R09.A2 - Foreign body sensation, throat (3) Heartburn: Status: Acute Category: Medical Code(s): R12 - Heartburn (4) Bloating: Status: Acute Category: Medical Code(s): R14.0 - Abdominal distension (gaseous) (5) Throat clearing: Status: Acute Category: Medical Code(s): R09.89 - Other specified symptoms and signs involving the circulatory and respiratory systems (6) Chronic cough: Status: Acute Category: Medical Code(s): R05.3 - Chronic cough Plan A/P: 1. Dysphagia with globus sensation, heartburn, throat clearing, chronic cough and bloating is the preprocedural diagnosis. The patient will be anesthetized/sedated using MAC sedation. The patient has been seen and examined. Cardiac and lung assessment prior to the examination is stable. Proceed with planned EGD
--- NOTE | 2024-04-10 07:58 | P.PCN_ITS ---
[facility] Procedure Note Date: 04/10/24 Time: 08:10 Procedure Note:: Upper Endoscopy Procedure Report: Esophagogastroduodenoscopy with cold biopsies and TTS balloon dilation Endoscopost: Vimal Thurston II, MD Referring Physician: Carlso Wolf M.D. Date of Procedure: April 10, 2024 Equipment: Olympus GIF 190 standard upper endoscope Sedation: MAC sedation Indications: Ms. Goodman is a 44-year-old female who is here because of her globus sensation, dysphagia, frequent cough and noncardiac chest pain. She did have cervical neck surgery (anterior fixation) with fusion. Her barium swallow (modified) did note some esophageal dysmotility. The patient had an EGD with Rohith Stafford MD in February 2023 with dilation. She may have had some mild improvement. She continues to have bloating, belching and gassiness. She has frequent throat clearing. She did improve some with omeprazole. She does get some dyspepsia with epigastric abdominal discomfort and early satiety. She also has some mild chronic constipation. She reports no significant heartburn or reflux. Her father had esophageal cancer at the age of 63. Procedure: Prior to the procedure, a history and physical exam was performed, and patient's medications and allergies were reviewed. The risks, benefits and alternatives of the sedation and procedure were discussed with the patient. All questions were answered and informed consent was obtained. The patient was brought to the procedure room. Patient identification and proposed procedure were verified by the physician and the nurse. The patient was placed in a left lateral decubitus position and the scope was passed under direct vision. Throughout the procedure, the patient's blood pressure, pulse, and oxygen saturations were monitored continuously. The upper GI endoscopy was accomplished without difficulty. The patient tolerated the procedure well. Findings: The scope was passed directly into the upper esophagus and advanced to the third portion of the duodenum. The post bulbar duodenum and duodenal bulb were normal with normal mucosa and conniventes. There was some mild duodenal lymphoid stasis. The scope was withdrawn through a normal duodenal bulb and pylorus into the stomach. There was evidence of linear reactive gastropathy with some erosions in the antrum. Biopsies were obtained. The body and fundus of the stomach were normal. Upon retroflexion there was no hiatal hernia. The scope was then withdrawn into the esophagus. There was no evidence of reflux esophagitis or Salgado's. There was no corrugation or furrowing. There was no proximal esophageal inlet patch. There was strong tertiary contractions and evidence of moderate esophageal dysmotility. The entire esophagus was dilated to 60 Citizen [place]/20 mm with a TTS hydrostatic balloon. There was mild resistance at the cricopharyngeus. The remainder of the esophageal mucosa was normal. Impression: 1. Nonerosive GERD with moderate esophageal dysmotility and cricopharyngeal spasm status post dilation to 20 mm 2. Mild linear erosive gastropathy of antrum Plan: I will follow-up the biopsies and discussed the findings with the patient and family. Dysphagia is a common complication of anterior surgery of the cervical spine. The incidence of post-operative dysphagia may be as high as 71% within the first two weeks after surgery, but gradually decreases during the following months. However, 12% to 14% of patients may have some persistent dysphagia one year after the procedure. Risk factors include multilevel surgery, longer operating time and severe pre-operative neck pain. Although the etiology remains unclear and is probably multifactorial, proposed causes include esophageal retraction, prominence of the cervical plate and prevertebral swelling. I do feel that much of this is still related to functional GERD/gas pressure gradients. Her symptoms of heartburn, chest pain and dyspepsia are related to and driven by lower intestinal gas pressure gradients/high gas pressure buildup resulting in backflow of bile and peptic fluid from the duodenum into the stomach (duodenal reflux). This gas production (carbon dioxide, hydrogen, methane, etc.) from the lower intestinal tract is the byproduct of colonic bacterial fermentation. This colonic fermentation occurs when there is more carbohydrate (dietary starches, sugars and high residue plant fiber) substrate that does not get digested (in the middle or small intestine) or occurs when there is colonic fecal buildup and colonic bacterial overgrowth. This indeed leads to bloating and the gas pressure buildup with gas pressure gradients that do drive backflow and reflux. I would recommend a fiber bowel regimen (combined MiraLAX plus Citrucel every morning). I would also recommend jufs-get-bthmuds herbal Iberogast in the evenings. I would continue omeprazole.
[2024-04-10 07:59] VITALS: O2SAT 100
[2024-04-10 08:14] VITALS: BP 100/60; PULSE 80; RESP 18; TEMP 36.6; O2SAT 96
[2024-04-10 08:24] VITALS: BP 100/54; PULSE 81; RESP 18; O2SAT 95
[2024-04-10 08:28] VITALS: BP 98/52; PULSE 82; RESP 18; O2SAT 96
[2024-04-10 08:46] VITALS: BP 105/65; PULSE 81; RESP 18; O2SAT 98
== END 2024-04-10 08:46 | disposition home or self-care (01) ==
PROVIDERS: PCP Internal Medicine Adolescent Medicine; Visit Provider Internal Medicine Gastroenterology
PROC: 0DJ08ZZ Inspection of Upper Intestinal Tract, Via Natural or Artificial Opening Endoscopic (ICD-10-PCS; CPT 43239; principal; 2024-04-10 08:00)
DX: K31.9 Disease of stomach and duodenum, unspecified (principal); K21.9 Gastro-esophageal reflux disease without esophagitis; K22.4 Dyskinesia of esophagus; J39.2 Other diseases of pharynx; R13.10 Dysphagia, unspecified; R09.A2 Foreign body sensation, throat; R12 Heartburn; R14.0 Abdominal distension (gaseous); R09.89 Other specified symptoms and signs involving the circulatory and respiratory systems; R05.3 Chronic cough; Z80.0 Family history of malignant neoplasm of digestive organs; Z72.0 Tobacco use
CPT/HCPCS: 43239; 43249; C1726; J7120

== ENCOUNTER 2024-04-11 14:21 | Outpatient (CLI) | payer OTHER, SELFPAY ==
[2024-04-11 15:53] LABS: Chol/HDL Ratio 5.6 (1-3.5); Cholesterol 190 mg/dl (140-200); HDL Cholesterol 34 mg/dl (40-60); Triglycerides 122 mg/dl (30-150); VLDL Cholesterol 24 mg/dL (0-40)
[2024-04-11 16:04] LABS: Direct LDL Cholesterol 115.96 mg/dL (100-129)
== END 2024-04-11 23:59 | disposition home or self-care (01) ==
LOC: LAB 14:22
PROVIDERS: PCP Internal Medicine Adolescent Medicine; Visit Provider Nurse Practitioner Obstetrics & Gynecology
DX: R53.83 Other fatigue (principal)
CPT/HCPCS: 36415; 80061

== ENCOUNTER 2024-04-12 10:46 | Outpatient (CLI) | payer OTHER, SELFPAY ==
[2024-04-12 18:44] LABS: Albumin Level 4.2 g/dl (3.5-5.0); Chloride 105 mmol/L (98-107); Potassium 4.2 mmoL/L (3.5-5.1); Sodium 141 mmol/L (136-145)
[2024-04-12 18:47] LABS: Alanine Aminotransferase 16 U/L (12-78); Albumin/Globulin Ratio 1.6 (1.1-1.8); Alkaline Phosphatase 99 U/L (38-126); Anion Gap 13.2 mEq/L (5-15); Aspartate Amino Transferase 24 U/L (14-36); Bilirubin,Total 0.3 mg/dl (0.2-1.3); Blood Urea Nitrogen 13 mg/dl (7-17); Carbon Dioxide 27 mmol/L (22.0-30.0); Estimated Glomerular Filt Rate 92 ml/min (>60); GFR (African American) 111 ML/MIN (>60); Globulin 2.7 g/dL (1.3-3.2); Total Protein,Serum 6.9 g/dl (6.3-8.2)
[2024-04-12 18:48] LABS: Calcium 9.2 mg/dl (8.4-10.2); Glucose 96 mg/dl (74-100)
== END 2024-04-12 23:59 | disposition home or self-care (01) ==
LOC: LAB.DROPOF 04-15 10:47
PROVIDERS: PCP Internal Medicine Adolescent Medicine; Visit Provider Nurse Practitioner Obstetrics & Gynecology
DX: Z79.899 Other long term (current) drug therapy (principal)
CPT/HCPCS: 80053

== ENCOUNTER 2024-04-26 13:12 | Day surgery (SDC) | payer OTHER, SELFPAY ==
[2024-04-26 13:37] VITALS: BP 134/80; PULSE 83; RESP 16; TEMP 36.9; O2SAT 95; BMI 30.5
[2024-04-26 14:15] VITALS: BP 132/85; PULSE 81; RESP 16; O2SAT 99
[2024-04-26] MEDS: FENTANYL 100MCG/2ML VIAL 100 MCG (14:15)
[2024-04-26] MEDS: LIDOCAINE 1% 30ML PF VIAL 30 ML (14:15)
[2024-04-26 14:16] VITALS: BP 121/48; PULSE 79; RESP 18; O2SAT 97
[2024-04-26] MEDS: CEFAZOLIN SODIUM 1 GM in 0.9 % SODIUM CHLORIDE 50 ML IV (14:16)
[2024-04-26 14:17] VITALS: BP 121/48; PULSE 79; RESP 18; O2SAT 97
[2024-04-26] MEDS: diphenhydrAMINE 25MG CAPSULE 25 MG PO (14:25)
[2024-04-26 14:45] VITALS: BP 114/82; PULSE 66; RESP 16; O2SAT 100
[2024-04-26 15:15] VITALS: BP 146/72; PULSE 80; RESP 16; O2SAT 97
--- NOTE | 2024-04-26 16:09 | EXP.PAIN.PRO ---
Procedure Date: 04/26/24 Time: 16:09 Anesthesiologist:: Hunter Sage MD Complications:: None Pre-procedure Diagnosis:: Postlaminectomy syndrome cervical spine with cervical radiculopathy symptoms and degenerative disease of lumbar spine with lumbar radiculopathy symptoms Post-procedure Diagnosis:: Same Indications for Procedure:: This patient is a pleasant 44-year-old white female who has some increasing neck pain and low back pain. She has had previous cervical spine surgery. She has failed all previous conservative treatments including injections, oral medications, physical therapy and she is not a candidate for any further surgery. She has had a successful psychological evaluation. She presents for intrathecal pump trial today. Procedure Details:: Pain pump trial Pain pump trial Informed consent was obtained and the risk and benefits of the procedure was explained to the patient. The patient was taken to the procedure room and placed prone on the procedure table. Patient was prepped and draped in sterile fashion. C-arm fluoroscopy was used to view the lumbar spine. The skin and subcutaneous tissues were anesthetized using lidocaine. I placed a 18-gauge spinal needle into the L4-5 interspace and advanced until clear CSF was obtained. After this intrathecal catheter was inserted and advanced very easily to the L1 vertebral body. The needle was withdrawn. We were able to freely withdraw clear CSF through the catheter. We then injected intrathecal opioid single shot bolus of 25 mcg followed by saline and followed by the previous CSF that was withdrawn. The needle and catheter were then removed and a Band-Aid was placed. Patient tolerated the procedure well with no complications. We reevaluated the patient after 30 minutes to 1 hour. She was also reassessed by physical therapy. Patient was more mobile and more functional. She was walking better standing better. She had 90 to 100% relief in pain symptoms. Pain score was a 1 out of 10. Patient was discharged home neurologic intact with good relief of pain symptoms. Plan and Disposition:: Will follow-up with this patient in 1 week to assess efficacy of this intrathecal pump trial. If successful we will plan on permanent placement with intrathecal morphine 1 mg/mL to start at 100 mcg/day. Catheter tip will be at the T5 vertebral body.
== END 2024-04-26 15:15 | disposition home or self-care (01) ==
LOC: SC.PAINP 13:13
PROVIDERS: PCP Internal Medicine Adolescent Medicine; Visit Provider Anesthesiology
DX: M50.10 Cervical disc disorder with radiculopathy, unspecified cervical region (principal); M51.16 Intervertebral disc disorders with radiculopathy, lumbar region; M96.1 Postlaminectomy syndrome, not elsewhere classified
CPT/HCPCS: 62323; J0690; J3010

== ENCOUNTER 2024-04-30 10:53 | Day surgery (SDC) | payer OTHER, SELFPAY ==
[2024-04-30 10:59] VITALS: BP 125/69; PULSE 83; RESP 16; TEMP 36.8; O2SAT 97; BMI 30.5
[2024-04-30] MEDS: methylPREDNISolone ACETATE 80MG/ML VIAL 80 MG (11:14)
[2024-04-30 11:15] VITALS: BP 127/85; PULSE 82; RESP 18; O2SAT 99
[2024-04-30] MEDS: LIDOCAINE 1% 5ML PF VIAL 5 ML (11:15)
[2024-04-30] MEDS: BUPIVACAINE 0.25% 10ML INJ 25 MG IJ (11:15)
[2024-04-30 11:17] VITALS: BP 127/85; PULSE 82; RESP 18; O2SAT 99
[2024-04-30 11:35] VITALS: BP 118/75; PULSE 76; RESP 16; TEMP 36.8; O2SAT 99
--- NOTE | 2024-04-30 13:05 | EXP.PAIN.PRO ---
Procedure Date: 04/30/24 Time: 11:30 Anesthesiologist:: Jan Kinney CRNA Complications:: None Pre-procedure Diagnosis:: DJD bilateral shoulder. Chronic shoulder pain. Post-procedure Diagnosis:: Same. Indications for Procedure:: Patient very pleasant 44-year-old female comes our clinic today for bilateral intra-articular shoulder injections of cortisone and local anesthetic. Patient describes bilateral shoulder pain as constant, dull, aching. Right greater than left. Patient has 5/5 strength in the bilateral arms. However, limited range of motion secondary bilateral shoulder pain. She rates her pain today 6/10. Procedure Details:: Procedure Details: Left shoulder intra-articular injection Informed consent was obtained risk and benefits of the procedure were explained to the patient. Patient was taken to the procedure room. The Left shoulder was prepped using ChloraPrep. A 25-gauge needle was used posteriorly to inject 10 mL bupivacaine 0.25% and Depo-Medrol 40 mg. Patient tolerated procedure well with no complications. Procedure Details: Right shoulder intra-articular injection Informed consent was obtained risk and benefits of the procedure were explained to the patient. Patient was taken to the procedure room. The right shoulder was prepped using ChloraPrep. A 25-gauge needle was used posteriorly to inject 10 mL bupivacaine 0.25% and Depo-Medrol 40 mg. Patient tolerated procedure well with no complications. Plan and Disposition:: Patient was discharged without incident.
== END 2024-04-30 11:35 | disposition home or self-care (01) ==
LOC: SC.PAINP 10:54
PROVIDERS: PCP Internal Medicine Adolescent Medicine; Visit Provider Nurse Anesthetist, Certified Registered
DX: M19.011 Primary osteoarthritis, right shoulder (principal); M19.012 Primary osteoarthritis, left shoulder; M25.511 Pain in right shoulder; M25.512 Pain in left shoulder; G89.29 Other chronic pain
CPT/HCPCS: 20610; J1010

== ENCOUNTER 2024-05-01 13:10 | Outpatient (POV) | payer OTHER, SELFPAY ==
[2024-05-01 13:27] VITALS: BP 140/79; PULSE 79; RESP 16; O2SAT 96; BMI 30.5
--- NOTE | 2024-05-01 14:12 | A.OFFVIS_ITS ---
[facility] Disclaimer: The information contained in this section may have been updated after the patient was seen, as this information can be updated by other users. Medical History High risk sexual behavior MDD (major depressive disorder), recurrent episode Asthma Migraine Eczema Allergies Surgical History History of esophagogastroduodenoscopy (EGD) History of colonoscopy History of neck surgery History of tonsillectomy History of hysterectomy Family History Father Cancer Other Esophageal cancer Family history of hypertension Hyperlipidemia Lung cancer Social History Smoking Status: Current every day smoker tobacco type: cigarettes packs per da y: 1 second hand exposure: No alcohol intake: never substance use type: denies use current occupational status: other Travel in the last 8 weeks: None household members: children housing: house marital status: caffeine: Yes Have you lived/traveled outside [place] in past 30 days?: No Contact w/someone who lives/traveled outside US past 30 days?: No Exposure to someone with infectious disease in past 14 days?: No Do you have a fever (greater than 100.4 F or 38 C)?: No Have you tested positive for COVID-19: No Exposed to someone with COVID-19 in past 14 days?: No Do you have a sore throat?: No Do you have a cough?: No Do you have any weakness?: No Do you have any diarrhea?: No Are you experiencing any unusual bleeding?: No Do you have any muscle aches/pain?: No Do you have any abdominal pain?: No Are you experiencing loss of taste or smell?: No PM Subjective & Objective Subjective Subjective:: Patient is a pleasant 44-year-old female who presents today for follow-up of bilateral shoulder intra-articular injections as well as pain pump trial on 04/27/2023. Today she rates her pain a 10 out of 10. Patient states she is not yet noticed improvement with the intra-articular injections however they were just done yesterday. Patient does state a lot of her pain is related to her neck with very limited range of motion and increasing issues. Patient states that the pain is interfering with her ability perform activities of daily living such as cooking and cleaning. Patient does however state that the pump trial provided 100% relief and that she has not felt that good for years. Patient states she was able to do more activities and even went to the grocery store and then went and did additional outdoor activities with decreased pain. She felt like she could even breathe better. Patient does state that when she immediately left down here she did have some increased sweating and it got a little nauseous but that she does typically get carsick on occasion. Patient is currently managed with baclofen 10 mg 3 times daily as needed and is now currently on pregabalin 25 mg in the morning. Patient is tapering down off this medication due to weight gain. She states with is doing the taper she is already noticed over the last several months that she is lost 15 pounds. Patient would like to continue to come off this medication. Patient has tried and failed conservative therapy. She does make mention that she is scheduled for an injection with [facility] in May however that after talking to one of our providers to get her injection she would like to have those injections moved here if possible. She states that she has a whole lot more convenient to come to our office than theirs. Her Jose has been reviewed and is appropriate. Review of Systems: General: No recent weight changes, no fever, no sleep disturbances Respiratory: No cough, no shortness of air, no recurring pulmonary infections Cardiovascular/peripheral vascular: No chest pain, no palpitations, no edema, no shortness of breath Gastrointestinal: No new onset incontinence, normal bowel movements reported Genitourinary: No new onset incontinence Musculoskeletal: Neck pain Psychiatric: [Normal mood/affect] Neurological: [Denies weakness in extremities], [denies balance issues] Pain at rest (0-10 scale): 10 Objective Objective:: Physical Exam: General: Alert and oriented x3, no acute distress, pleasant and cooperative Lungs: Respirations even and unlabored, symmetrical chest expansion Eyes: PERRL Musculoskeletal: Flexion and extension of cervical [spine] somewhat guarded secondary to pain, [antalgic gait noted] positive Kemps test Neurological: Speech clear, no gross sensory deficit Has patient had previous pain injection?: Yes Percent improvement in pain since last injection: 100% Conservative treatment options previously tried: Home exercise plan Length of treatment: Longer than 12 weeks Meds Home Medications and Allergies Home Medications ?Medication ?Instructions ?Recorded ?Confirmed ?Type B-complex with vitamin C 1 cap PO DAILY Supplement 12/09/20 05/01/24 History cholecalciferol (vitamin D3) 50 50 mcg PO DAILY Supplement 12/09/20 05/01/24 History mcg (2,000 unit) capsule magnesium 30 mg tablet 30 mg PO DAILY Supplement 12/09/20 05/01/24 History clobetasol 0.05 % scalp solution 1 ml topical DAILY exzema 06/08/21 05/01/24 History duloxetine 60 mg capsule,delayed 60 mg PO .2 tablets QD Depression 05/18/22 05/01/24 History release acetaminophen 500 mg tablet 500 mg PO Q6H PRN Pain 01/19/23 05/01/24 History (Tylenol Extra Strength) bupropion HCl 300 mg 24 hr tablet, 300 mg PO DAILY 09/26/23 05/01/24 History extended release thiamine HCl (vitamin B1) 100 mg 100 mg PO DAILY 09/26/23 05/01/24 History tablet spironolactone 100 mg tablet See Rx Instructions .Route 10/31/23 05/01/24 Rx .COMPLEX #30 tabs famotidine 20 mg tablet 20 mg PO HS 11/22/23 05/01/24 History naproxen 500 mg tablet 500 mg PO BID 11/22/23 05/01/24 History omeprazole 20 mg capsule,delayed 20 mg PO DAILY #30 caps 11/22/23 05/01/24 Rx release valacyclovir 1 gram tablet 1,000 mg PO DAILY PRN hsv #30 tabs 12/05/23 05/01/24 Rx (Valtrex) baclofen 10 mg tablet See Rx Instructions .Route 02/20/24 05/01/24 Rx .COMPLEX #60 tabs pregabalin 25 mg capsule 25 mg PO TID #90 caps 03/18/24 05/01/24 Rx fexofenadine 60 mg-pseudoephedrine 1 tab PO DAILY 04/08/24 05/01/24 History ER 120 mg tablet,ext.release,12 hr (Mimi-D 12 Hour) hydrocodone 5 mg-ibuprofen 200 mg 1 tab PO BID #60 tabs 05/01/24 Rx tablet New Prescriptions to Start Prescriptions: hydrocodone-ibuprofen Charles,Stacie A Allergies Allergy/AdvReac Type Severity Reaction Status Date / Time No Known Allergies Allergy Verified 04/10/24 06:57 Assessment and Plan *Assessment and plan (1) Chronic pain syndrome: Status: Acute Category: Medical Code(s): G89.4 - Chronic pain syndrome (2) Degenerative disc disease, cervical: Status: Acute Category: Medical Code(s): M50.30 - Other cervical disc degeneration, unspecified cervical region (3) History of fusion of cervical spine: Status: Acute Category: Surgical Code(s): Z98.1 - Arthrodesis status Plan Patient did undergo a intrathecal pump trial with significant improvement in the patient would like to proceed forward with the intrathecal implant. Risk and benefits have been discussed and they still wish to continue with this plan of care. Patient has tried and failed conservative therapies including previous cervical fusion. Patient has continued at home stretching exercise for longer than 12 weeks with no additional changes. Patient does have a signed agreement that if we proceed forward with the intrathecal pump that there will be a decrease in oral pain medications if this is applicable with the overall goal 2- no oral opioids once the intrathecal pain pump is established. Prior to the intrathecal trial patient was on a fixed schedule with her medications and patient has been compliant with her medication regimen. We will submit for the intrathecal pain pump implant. I did also discuss with patient that due to her very limited range of motion of her cervical spine with a positive Kemps test that she may benefit from cervical medial branch block bilaterally. Risk and benefits were discussed with patient and she would like to proceed forward with this plan of care. We will also submit for this diagnostic injection of cervical medial branch block bilaterally C4-C5 and C5-C6. Patient is not on any blood thinners I will also send in a 1 month supply of hydrocodone/ibuprofen 5 mg / 200 mg twice a day for her ongoing pain symptoms until she does get her intrathecal pump implant. Patient agrees with this plan of care. Risks and benefits of the medication have been explained in detail to the patient. The patient does understand the risk of dependence on the medication when given over a prolonged period. Patient has been advised of risks of oversedation with the prescribed medication. Narcan has been offered to the paitent in the event of oversedation. Patient has been advised that a family member should also be educated regarding administration of Narcan. The patient has been advised to consult with his/her primary care provider and pharmacist regarding drug-drug interaction of medications currently prescribed. Patient has been prescribed a controlled substance after being counseled on the medication, medication safety, and possible side effects. Opioid contract was reviewed and signed by the patient, and that they have agreed to all of the terms set forth by our compliance program. A UDS is needed to verify patient's compliance with our office pain contract. This is ordered based off specific treatments related to chronic pain with the potential to abuse certain medications. Patient has been instructed to contact the clinic with any concerns before the next appointment. Dr. Sage has reviewed this note and agrees with this plan of care. This note was dictated using voice recognition software and make contain errors or omissions.
== END 2024-05-01 23:59 | disposition home or self-care (01) ==
PROVIDERS: PCP Internal Medicine Adolescent Medicine; Visit Provider Nurse Practitioner Family
DX: G89.4 Chronic pain syndrome (principal); M50.30 Other cervical disc degeneration, unspecified cervical region; Z98.1 Arthrodesis status; F17.210 Nicotine dependence, cigarettes, uncomplicated; Z73.89 Other problems related to life management difficulty
CPT/HCPCS: 99212; G0463

== ENCOUNTER 2024-05-13 14:33 | Outpatient (POV) | payer OTHER, SELFPAY ==
[2024-05-13 15:08] VITALS: BP 121/78; PULSE 88; RESP 16; O2SAT 99; BMI 29.7
--- NOTE | 2024-05-13 15:27 | EXP.PAIN.SOA ---
[facility] Disclaimer: The information contained in this section may have been updated after the patient was seen, as this information can be updated by other users. Medical History High risk sexual behavior MDD (major depressive disorder), recurrent episode Asthma Migraine Eczema Allergies Surgical History History of esophagogastroduodenoscopy (EGD) History of colonoscopy History of neck surgery History of tonsillectomy History of hysterectomy Family History Father Cancer Other Esophageal cancer Family history of hypertension Hyperlipidemia Lung cancer Social History Smoking Status: Current every day smoker tobacco type: cigarettes packs per day: 1 second hand exposure: No alcohol intake: never substance use type: denies use current occupational status: other Travel in the last 8 weeks: None household members: children housing: house marital status: caffeine: Yes PM Subjective & Objective Subjective Subjective:: Patient is a pleasant 44-year-old female who presents today for follow-up. Today she rates her pain a 7 out of 10. She denies any new trauma or injury. She does state that she did end up getting the new pain medication and that it did help however it had ibuprofen and it and so she discontinued her naproxen. Patient does feel like she has picked up having increased headaches and migraines since then. Patient does also make mention that she did not get additional refills. Patient states that she did call on Monday and they had not stated there was a prescription there. Patient was also to be scheduled for a cervical medial branch block however she states that our date to have this done was around the and [facility] is on May 23. Patient states that she is going to keep the 1 on the since it is sooner but would like for us to proceed forward with additional options after that. Patient is currently prescribed hydrocodone/ibuprofen 5 mg / 200 mg twice a day from our office. This is only temporary while she is waiting for pump implant. Her Jose has been reviewed and is appropriate. Review of Systems: General: No recent weight changes, no fever, no sleep disturbances Respiratory: No cough, no shortness of air, no recurring pulmonary infections Cardiovascular/peripheral vascular: No chest pain, no palpitations, no edema, no shortness of breath Gastrointestinal: No new onset incontinence, normal bowel movements reported Genitourinary: No new onset incontinence Musculoskeletal: Neck pain, chronic low back pain Psychiatric: [Normal mood/affect] Neurological: [Denies weakness in extremities], [denies balance issues] Pain at rest (0-10 scale): 7 Objective Objective:: Physical Exam: General: Alert and oriented x3, no acute distress, pleasant and cooperative Lungs: Respirations even and unlabored, symmetrical chest expansion Eyes: PERRL Musculoskeletal: Flexion and extension of cervical [spine] somewhat guarded secondary to pain, [antalgic gait noted] Neurological: Speech clear, no gross sensory deficit Has patient had previous pain injection?: No Conservative treatment options previously tried: Home exercise plan Length of treatment: Longer than 12 weeks Meds Home Medications and Allergies Home Medications ?Medication ?Instructions ?Recorded ?Confirmed ?Type B-complex with vitamin C 1 cap PO DAILY Supplement 12/09/20 05/13/24 History cholecalciferol (vitamin D3) 50 50 mcg PO DAILY Supplement 12/09/20 05/13/24 History mcg (2,000 unit) capsule magnesium 30 mg tablet 30 mg PO DAILY Supplement 12/09/20 05/13/24 History clobetasol 0.05 % scalp solution 1 ml topical DAILY exzema 06/08/21 05/13/24 History duloxetine 60 mg capsule,delayed 60 mg PO .2 tablets QD Depression 05/18/22 05/13/24 History release acetaminophen 500 mg tablet 500 mg PO Q6H PRN Pain 01/19/23 05/13/24 History (Tylenol Extra Strength) bupropion HCl 300 mg 24 hr tablet, 300 mg PO DAILY 09/26/23 05/13/24 History extended release thiamine HCl (vitamin B1) 100 mg 100 mg PO DAILY 09/26/23 05/13/24 History tablet spironolactone 100 mg tablet See Rx Instructions .Route 10/31/23 05/13/24 Rx .COMPLEX #30 tabs famotidine 20 mg tablet 20 mg PO HS 11/22/23 05/13/24 History naproxen 500 mg tablet 500 mg PO BID 11/22/23 05/13/24 History omeprazole 20 mg capsule,delayed 20 mg PO DAILY #30 caps 11/22/23 05/13/24 Rx release valacyclovir 1 gram tablet 1,000 mg PO DAILY PRN hsv #30 tabs 12/05/23 05/13/24 Rx (Valtrex) pregabalin 25 mg capsule 25 mg PO TID #90 caps 03/18/24 05/13/24 Rx fexofenadine 60 mg-pseudoephedrine 1 tab PO DAILY 04/08/24 05/13/24 History ER 120 mg tablet,ext.release,12 hr (Mimi-D 12 Hour) baclofen 10 mg tablet See Rx Instructions .Route 05/09/24 05/13/24 Rx .COMPLEX #60 tabs hydrocodone 7.5 mg-ibuprofen 200 1 tab PO BID #60 tabs 05/10/24 05/13/24 Rx mg tablet New Prescriptions to Start Prescriptions: Allergies Allergy/AdvReac Type Severity Reaction Status Date / Time No Known Allergies Allergy Verified 04/10/24 06:57 Assessment and Plan *Assessment and plan (1) Chronic pain syndrome: Status: Acute Category: Medical Code(s): G89.4 - Chronic pain syndrome (2) Bilateral shoulder pain: Status: Acute Qualifiers: Chronicity: chronic Qualified Code(s): M25.511 - Pain in right shoulder; M25.512 - Pain in left shoulder; G89.29 - Other chronic pain Category: Medical Code(s): M25.511 - Pain in right shoulder; M25.512 - Pain in left shoulder (3) Degenerative disc disease, cervical: Status: Acute Category: Medical Code(s): M50.30 - Other cervical disc degeneration, unspecified cervical region (4) History of fusion of cervical spine: Status: Acute Category: Surgical Code(s): Z98.1 - Arthrodesis status Plan I did discuss with the patient I will give her a follow-up following her cervical medial branch block there at [facility]. Patient was counseled if she does get significant relief we will plan on repeating this injection with the plan to possibly proceed forward with a cervical RFA at a later date. Patient agrees with this plan of care. We did call down to the pharmacy and they did confirm that the prescription is there and ready for pickup. Patient was given this information. Patient will return to clinic on or around May 30 for follow-up. Patient has been instructed to contact the clinic with any concerns before the next appointment. Dr. Sage has reviewed this note and agrees with this plan of care. This note was dictated using voice recognition software and make contain errors or omissions. All injections are used with Lidocaine, Bupivacaine and Depo Medrol. Occasionally urine drug screen is needed to verify patient's compliance with our office pain contract. This is ordered based off specific treatments related to chronic pain with the potential to abuse certain medications.
== END 2024-05-13 23:59 | disposition home or self-care (01) ==
PROVIDERS: PCP Internal Medicine Adolescent Medicine; Visit Provider Nurse Practitioner Family
DX: G89.4 Chronic pain syndrome (principal); M25.511 Pain in right shoulder; M25.512 Pain in left shoulder; M50.30 Other cervical disc degeneration, unspecified cervical region; Z98.1 Arthrodesis status; F17.210 Nicotine dependence, cigarettes, uncomplicated
CPT/HCPCS: 99212; G0463

== ENCOUNTER 2024-05-30 15:08 | Outpatient (POV) | payer OTHER, SELFPAY ==
[2024-05-30 15:44] VITALS: BP 132/88; PULSE 78; RESP 18; O2SAT 97; BMI 29.7
--- NOTE | 2024-05-30 16:00 | EXP.PAIN.SOA ---
[facility] Disclaimer: The information contained in this section may have been updated after the patient was seen, as this information can be updated by other users. Medical History High risk sexual behavior MDD (major depressive disorder), recurrent episode Asthma Migraine Eczema Allergies Surgical History History of esophagogastroduodenoscopy (EGD) History of colonoscopy History of neck surgery History of tonsillectomy History of hysterectomy Family History Father Cancer Other Esophageal cancer Family history of hypertension Hyperlipidemia Lung cancer Social History Smoking Status: Current every day smoker tobacco type: cigarettes packs per day: 1 second hand exposure: No alcohol intake: never substance use type: denies use current occupational status: other Travel in the last 8 weeks: None household members: children housing: house marital status: caffeine: Yes PM Subjective & Objective Subjective Subjective:: Patient is a pleasant 44-year-old female who presents today for follow-up of her first cervical medial branch block that was done at [facility] bilaterally of C4-C5 and C5-C6 under fluoroscopy. Today she rates her pain a 5 out of 10. She denies any new trauma or injury. She does state that she initially got at least 80% improvement while it was nice and numb and that feels like it is still helping some but it is more around the 50% [place] today. Patient states that she has been able to move her neck around much easier overall and feels like it has been much more beneficial with this intervention. She does state that she feels like the pain is starting to return however and would like to go ahead and get scheduled for the second diagnostic injection through our office. Patient has continued conservative therapy including at home stretching exercise for longer than 12 weeks. Patient is tentatively still scheduled for her pump implant coming up as well. Patient is currently managed with hydrocodone/ibuprofen 500 mg / 200 mg twice a day from our office. She denies any side effects but is requesting refills. Her Jose has been reviewed and is appropriate. Review of Systems: General: No recent weight changes, no fever, no sleep disturbances Respiratory: No cough, no shortness of air, no recurring pulmonary infections Cardiovascular/peripheral vascular: No chest pain, no palpitations, no edema, no shortness of breath Gastrointestinal: No new onset incontinence, normal bowel movements reported Genitourinary: No new onset incontinence Musculoskeletal: Neck pain Psychiatric: [Normal mood/affect] Neurological: [Denies weakness in extremities], [denies balance issues] Pain at rest (0-10 scale): 5 Objective Objective:: Physical Exam: General: Alert and oriented x3, no acute distress, pleasant and cooperative Lungs: Respirations even and unlabored, symmetrical chest expansion Eyes: PERRL Musculoskeletal: Flexion and extension of cervical [spine] somewhat guarded secondary to pain, positive Kemps test Neurological: Speech clear, no gross sensory deficit Has patient had previous pain injection?: Yes Percent improvement in pain since last injection: 80% initially now 50% Conservative treatment options previously tried: Home exercise plan Length of treatment: Longer than 12 weeks Meds Home Medications and Allergies Home Medications ?Medication ?Instructions ?Recorded ?Confirmed ?Type B-complex with vitamin C 1 cap PO DAILY Supplement 12/09/20 05/30/24 History cholecalciferol (vitamin D3) 50 50 mcg PO DAILY Supplement 12/09/20 05/30/24 History mcg (2,000 unit) capsule magnesium 30 mg tablet 30 mg PO DAILY Supplement 12/09/20 05/30/24 History clobetasol 0.05 % scalp solution 1 ml topical DAILY exzema 06/08/21 05/30/24 History duloxetine 60 mg capsule,delayed 60 mg PO .2 tablets QD Depression 05/18/22 05/30/24 History release acetaminophen 500 mg tablet 500 mg PO Q6H PRN Pain 01/19/23 05/30/24 History (Tylenol Extra Strength) bupropion HCl 300 mg 24 hr tablet, 300 mg PO DAILY 09/26/23 05/30/24 History extended release thiamine HCl (vitamin B1) 100 mg 100 mg PO DAILY 09/26/23 05/30/24 History tablet spironolactone 100 mg tablet See Rx Instructions .Route 10/31/23 05/30/24 Rx .COMPLEX #30 tabs famotidine 20 mg tablet 20 mg PO HS 11/22/23 05/30/24 History naproxen 500 mg tablet 500 mg PO BID 11/22/23 05/30/24 History omeprazole 20 mg capsule,delayed 20 mg PO DAILY #30 caps 11/22/23 05/30/24 Rx release valacyclovir 1 gram tablet 1,000 mg PO DAILY PRN hsv #30 tabs 12/05/23 05/30/24 Rx (Valtrex) pregabalin 25 mg capsule 25 mg PO TID #90 caps 03/18/24 05/30/24 Rx fexofenadine 60 mg-pseudoephedrine 1 tab PO DAILY 04/08/24 05/30/24 History ER 120 mg tablet,ext.release,12 hr (Mimi-D 12 Hour) baclofen 10 mg tablet See Rx Instructions .Route 05/09/24 05/30/24 Rx .COMPLEX #60 tabs hydrocodone 7.5 mg-ibuprofen 200 1 tab PO BID #60 tabs 05/10/24 05/30/24 Rx mg tablet New Prescriptions to Start Prescriptions: Allergies Allergy/AdvReac Type Severity Reaction Status Date / Time No Known Allergies Allergy Verified 04/10/24 06:57 Assessment and Plan *Assessment and plan (1) Degenerative disc disease, cervical: Status: Acute Category: Medical Code(s): M50.30 - Other cervical disc degeneration, unspecified cervical region (2) History of fusion of cervical spine: Status: Acute Category: Surgical Code(s): Z98.1 - Arthrodesis status (3) Facet arthropathy, cervical: Status: Acute Category: Medical Code(s): M47.812 - Spondylosis without myelopathy or radiculopathy, cervical region Plan Patient has had a successful first cervical medial branch block providing 80% initially lasting 3 to 4 hours and even now is still helping some at 50%. Patient does state that she has had overall improved function with this injection however is experiencing a little bit more pain with limited range of motion of her cervical spine and a positive Kemps test. I did discuss with the patient that I do believe she would benefit from a repeat diagnostic cervical medial branch block bilaterally C4-C5 and C5-C6 under fluoroscopy. Risk and benefits were discussed with patient and she would like to proceed forward with this plan of care. If she does get significant relief with her second diagnostic block then we will proceed forward with the cervical RFA at a later date. I will refill her hydrocodone/ibuprofen and provide a 1 month supply of this medication. Patient will be scheduled for her second cervical medial branch block bilaterally C4-C5 and C5-C6 under fluoroscopy. Patient is not on any blood thinners. Risks and benefits of the medication have been explained in detail to the patient. The patient does understand the risk of dependence on the medication when given over a prolonged period. Patient has been advised of risks of oversedation with the prescribed medication. Narcan has been offered to the paitent in the event of oversedation. Patient has been advised that a family member should also be educated regarding administration of Narcan. The patient has been advised to consult with his/her primary care provider and pharmacist regarding drug-drug interaction of medications currently prescribed. Patient has been prescribed a controlled substance after being counseled on the medication, medication safety, and possible side effects. Opioid contract was reviewed and signed by the patient, and that they have agreed to all of the terms set forth by our compliance program. A UDS is needed to verify patient's compliance with our office pain contract. This is ordered based off specific treatments related to chronic pain with the potential to abuse certain medications. Patient has been instructed to contact the clinic with any concerns before the next appointment. Dr. Sage has reviewed this note and agrees with this plan of care. This note was dictated using voice recognition software and make contain errors or omissions.
== END 2024-05-30 23:59 | disposition home or self-care (01) ==
PROVIDERS: PCP Internal Medicine Adolescent Medicine; Visit Provider Nurse Practitioner Family
DX: M50.30 Other cervical disc degeneration, unspecified cervical region (principal); Z98.1 Arthrodesis status; M47.812 Spondylosis without myelopathy or radiculopathy, cervical region; F17.210 Nicotine dependence, cigarettes, uncomplicated
CPT/HCPCS: 99212; G0463

== ENCOUNTER 2024-06-12 13:02 | Outpatient (CLI) | payer OTHER, SELFPAY ==
[2024-06-12 13:15] VITALS: BMI 29.2
--- NOTE | 2024-06-12 13:27 | ECG_ITS ---
APPROVED REPORT Exam: Resting ECG HR:76 bpm ECG Measurements Heart Rate 76 AXES WY 145 P -23 QRSd 82 QRS 56 QT 364 T 53 QTc 395 Conclusion SINUS RHYTHM LOW QRS VOLTAGE IN PRECORDIAL LEADS [QRS DEFLECTION < 1.0 mV IN CHEST LEADS] BORDERLINE ECG UNCONFIRMED REPORT Electronically signed by : Carlos Wolf MD 06/13/2024 11:31:52
[2024-06-12 13:53] LABS: Basophils % 0.5 % (0.1-2.0); Eosinophils # 0.1 Kmm3 (0.0-0.4); Eosinophils % 1.3 % (0.1-12.0); Hematocrit 41.2 % (37.0-47.0); Hemoglobin 13.9 g/dL (12.2-16.2); Lymphocytes # 2.7 K/mm3 (0.7-4.5); Lymphocytes % 33.8 % (10-50); Mean Corpuscular HGB Conc 33.7 g/dL (31.8-35.4); Mean Corpuscular Hemoglobin 29.6 pg (27.0-31.2); Mean Corpuscular Volume 87.8 fl (81-99); Mean Platelet Volume 9.3 fl (7.4-10.4); Monocytes # 0.4 K/mm3 (0.1-1.0); Monocytes % 5.3 % (1.7-9.3); Neutrophils # 4.7 K/mm3 (1.8-7.8); Neutrophils % 58.8 % (37.0-80.0); Nucleated Red Blood Cells # 0 10^3/uL; Nucleated Red Blood Cells % 0 %; Platelet Count 241 K/mm3 (142-424); Red Blood Count 4.69 M/mm3 (4.20-5.40); Red Cell Distribution Width 13.2 % (11.5-17.5); Red Cell Distribution Width-SD 41.5 fL; White Blood Count 7.9 K/mm3 (4.8-10.8)
[2024-06-12 14:04] LABS: Anion Gap 6.7 mEq/L (5-15); Blood Urea Nitrogen 12 mg/dl (7-17); Calcium 8.8 mg/dl (8.4-10.2); Carbon Dioxide 26 mmol/L (22.0-30.0); Chloride 107 mmol/L (98-107); Creatinine Clearance Estimated 164 mL/min (50-200); Estimated Glomerular Filt Rate 110 ml/min (>60); GFR (African American) 133 ML/MIN (>60); Glucose 81 mg/dl (74-100); Potassium 3.7 mmoL/L (3.5-5.1); Sodium 136 mmol/L (136-145)
== END 2024-06-12 23:59 | disposition home or self-care (01) ==
LOC: PREOP 13:02
PROVIDERS: PCP Internal Medicine Adolescent Medicine; Visit Provider Anesthesiology
DX: Z01.810 Encounter for preprocedural cardiovascular examination (principal); R94.31 Abnormal electrocardiogram [ECG] [EKG]
CPT/HCPCS: 80048; 85025; 93005

== ENCOUNTER 2024-06-21 10:58 | Day surgery (SDC) | payer OTHER, SELFPAY ==
[2024-06-21 11:10] VITALS: BMI 28.6
[2024-06-21] MEDS: LACTATED RINGERS 1000ML 1,000 ML 25 ML IV (11:12)
[2024-06-21 11:23] VITALS: BP 111/76; PULSE 78; RESP 17; TEMP 36.4; O2SAT 96
--- NOTE | 2024-06-21 11:34 | P.PNANES_ITS ---
[facility] Disclaimer: The information contained in this section may have been updated after the patient was seen, as this information can be updated by other users. Medical History High risk sexual behavior MDD (major depressive disorder), recurrent episode Asthma Migraine Eczema Allergies Surgical History History of esophagogastroduodenoscopy (EGD) History of colonoscopy History of neck surgery History of tonsillectomy History of hysterectomy Family History Father Cancer Other Esophageal cancer Family history of hypertension Hyperlipidemia Lung cancer Social History Smoking Status: Current every day smoker tobacco type: cigarettes packs per day: 1 second hand exposure: No alcohol intake: never substance use type: denies use current occupational status: unemployed Travel in the last 8 weeks?: None household members: children housing: house marital status: caffeine: Yes Have you lived/traveled outside [place] in past 30 days?: No Contact w/someone who lives/traveled outside US past 30 days?: No Exposure to someone with infectious disease in past 14 days?: No Do you have a fever (greater than 100.4 F or 38 C)?: No Have you tested positive for COVID-19?: No Exposed to someone with COVID-19 in past 14 days?: No Do you have a sore throat?: No Do you have a cough?: No Do you have any weakness?: No Are you experiencing any nausea/vomitting?: No Do you have any diarrhea?: No Are you experiencing any unusual bleeding?: No Do you have any muscle aches/pain?: No Do you have any abdominal pain?: No Are you experiencing loss of taste or smell?: No [facility] Anesthesia Checklist Patient Identification Patient Identification: Arm Band and Verbal (Name & ) Structural Data Admitted From: Home Planned Operative Procedure/s: pain pump insertion Consent for Planned Operative Procedure(s) Verified: Yes Verified Documents: Surgical Consent and History and Physical NPO Status Verified Time NPO: 00:00 Additional verifications Patient : No Anesthesia Reactions: No Hx Blood Transfusions: No Blood Transfusion Reaction: No Airway Assessment Mallampati Score:: Class II Dentition: Good Dentition Neurological Assessment Level of Consciousness: Awake, Alert and Appropriate Hx Seizures: No Anesthesia Plan Anesthesia Risk discussed: Yes Anesthesia Plan: Verified ASA Class: II Anesthesia Type: MAC
[2024-06-21] MEDS: CEFAZOLIN SODIUM 1 GM in 0.9 % SODIUM CHLORIDE 50 ML IV (12:00)
[2024-06-21] MEDS: LIDOCAINE 1% W/EPI 1:100,000 20ML VIAL 40 ML (12:10)
[2024-06-21] MEDS: SODIUM CHLORIDE 0.9% 20ML VIAL 40 ML IV (12:10)
[2024-06-21] MEDS: GENTAMICIN 80 MG/2 ML VIAL (12:10)
[2024-06-21 12:51] VITALS: BP 101/54; PULSE 97; RESP 18; TEMP 36.6; O2SAT 98
[2024-06-21 13:01] VITALS: BP 96/56; PULSE 57; RESP 17; O2SAT 96
[2024-06-21 13:11] VITALS: BP 100/68; PULSE 52; RESP 17; O2SAT 96
[2024-06-21 13:21] VITALS: BP 111/61; PULSE 67; RESP 17; O2SAT 96
--- NOTE | 2024-06-21 14:28 | P.OP_ITS ---
Date of procedure: 06/21/24 Pre-op Diagnosis:: Degenerative disc disease of cervical spine with postlaminectomy syndrome cervical spine Post-op Diagnosis:: Same Procedure performed:: Permanent placement intrathecal pain pump with tunneled intrathecal catheter and pain pump generator placement Surgeon:: Hunter Sage MD [employer]ORATORY TECHNICIAN:: Other Anesthesia: MAC Estimated blood loss (mL): 5 Clinical Note:: This patient is a pleasant 44-year-old white female who we are treating for po stlaminectomy syndrome cervical spine with previous anterior cervical disc fusion. She has failed all previous conservative treatments including injections, oral medications, physical therapy and she is not a candidate for any further surgery. She has had a successful psychological evaluation and a successful intrathecal pump trial. She presents for permanent placement of her intrathecal pain pump today. Operative findings:: None Operative note:: Informed consent was obtained risk and benefits of the procedure were explained to the patient. The patient was taken the operating room placed prone on the procedure table. She was prepped and draped in sterile fashion. C-arm fluoroscopy was used to view the right flank. [place] between the 12th rib and iliac crest the skin and subcutaneous tissues were anesthetized. I made an incision dissected out the pain pump generator pocket. C-arm fluoroscopy was used to view the lumbar spine. The skin and subcutaneous tissues adjacent to the L4-5 and L5-S1 interspace were anesthetized using lidocaine. I made an incision dissected down to the lumbar paraspinous fascia. A 17-gauge spinal needle was inserted and advanced into the L5-S1 interspace until clear CSF was obtained. After this intrathecal catheter was inserted and advanced very easily to the T1 vertebral body. Most of this patient's pain was in the cervical region. The stylette of the catheter and the needle were withdrawn. The catheter secured to the fascia with an anchoring device and 2-0 Prolene. I tunneled the catheter from the back to the generator pocket. I filled the pump with 20 mL of intrathecal morphine 1 mg/mL I attached catheter to the generator. We were able to freely withdraw clear CSF through the sideport. The pump was then placed in the pocket with an antibiotic pouch. Both incisions were closed with 2-0 Vicryl followed by 4-0 nylon and rito. The patient tolerated the procedure well with no complications. Pump was interrogated and started at 100 mcg/day of intrathecal morphine. Patient was discharged home neurologic intact with good relief of pain symptoms. Plan and disposition: We will follow-up with this patient in 1 week for wound check and reprogramming will follow-up in 2 to 3 weeks for suture and staple removal Condition: stable Disposition: PACU Complications:: None
== END 2024-06-21 13:30 | disposition home or self-care (01) ==
PROVIDERS: PCP Internal Medicine Adolescent Medicine; Visit Provider Anesthesiology
PROC: (CPT 62362; principal; 2024-06-21 12:15)
DX: M50.30 Other cervical disc degeneration, unspecified cervical region (principal); M47.812 Spondylosis without myelopathy or radiculopathy, cervical region; M96.1 Postlaminectomy syndrome, not elsewhere classified; F33.9 Major depressive disorder, recurrent, unspecified; J45.909 Unspecified asthma, uncomplicated; G43.909 Migraine, unspecified, not intractable, without status migrainosus; L30.9 Dermatitis, unspecified; Z90.710 Acquired absence of both cervix and uterus; F17.210 Nicotine dependence, cigarettes, uncomplicated; Z79.899 Other long term (current) drug therapy; Z98.1 Arthrodesis status
CPT/HCPCS: 62362; 96374; C1755; C1772; J1100; J1580; J1596; J2003; J2004; J2250; J2405; J2704; J7120

== ENCOUNTER 2024-06-27 10:24 | Outpatient (POV) | payer OTHER, SELFPAY ==
[2024-06-27 10:58] VITALS: BP 114/83; PULSE 80; RESP 16; O2SAT 98; BMI 29.2
--- NOTE | 2024-06-27 11:16 | P.PCN_ITS ---
Procedure Date: 06/27/24 Time: 11:03 Anesthesiologist:: Stacie Charles APRN Complications:: None Pre-procedure Diagnosis:: Degenerative disc disease of cervical and lumbar spine with cervical and lumbar radiculopathy symptoms Post-procedure Diagnosis:: Same Indications for Procedure:: Patient is a pleasant 44-year-old female who presents today for 1 week postop of her intrathecal pump implant on 06/21/2024. Today she rates her pain a 5 out of 10. She denies any issues following her pump placement however does feel like since Monday she has been experiencing more nausea and some increased neck pain. She only states the change has been that she did start her antibiotic on Monday. Patient is currently managed with morphine 1 mg/mL with a starting dose of 0.1 mg/day. Patient does feel like that she is noticing a difference with this. Her Jose has been reviewed and is appropriate. Physical Exam: General: Alert and oriented x3, no acute distress, pleasant and cooperative Lungs: Respirations even and unlabored, symmetrical chest expansion Eyes: PERRL Musculoskeletal: Flexion and extension of lumbar [spine] somewhat guarded secondary to pain, [antalgic gait noted] Neurological: Speech clear, no gross sensory deficit Skin: Incision sites are clean, dry, well-approximated with sutures and rito intact and minimal erythema noted Procedure Details:: Informed consent was obtained and the risk and benefits of the procedure were explained to the patient. Patient did have noninvasive monitoring was placed including noninvasive blood pressure cuff and pulse oximeter. Patient's pump was interrogated and was reprogrammed to morphine 0.105 mg/day. The patient tolerated the procedure well with no complications. Plan and Disposition:: Patient was reviewed over to follow her other postop restrictions the full 6 weeks including minimal bending, lifting or twisting, no submerging in water until her incisions are fully healed and to continue to use her abdominal binder to prevent seroma formation. Patient's incision is looking well and I have told her to discontinue her antibiotic to see if this does improve the nausea she has been experiencing. We will continue to monitor this. Patient will be given a follow-up to remove her her sutures and rito in approximately 2-1/2 weeks. Patient agrees with this plan of care. Patient tolerated the procedure well with no complications and was discharged neurologically intact. Patient will return to clinic on or before their next intrathecal refill date. We will see the patient back in the clinic at the next intrathecal refill. Patient has been instructed to contact the clinic with any concerns before the next appointment. Dr. Sage has reviewed this note and agrees with this plan of care. This note was dictated using voice recognition software and make contain errors or omissions. -- It Is medically necessary for this patient to continue to have their intrathecal pump refilled at regular intervals. This patient had an intrathecal pain pump implanted after meeting criteria of chronic intractable pain for greater than 3 months and failing conservative treatments. Patient has committed and been compl iant to the treatment plan and all planned follow up care. Since implantation of the intrathecal pain pump, the patient has had decreased pain and been more functional. Oral medications have been reduced including intake of oral opioids. Patient continues to do well with intrathecal therapy with decrease in pain symptoms and increase in functional status. Stopping intrathecal medications can lead to life threatening withdrawal, seizures, cardiac arrest, severe pain, and possible . Pumps that are not refilled at regular intervals can be damages and cause and need for replacement. We continually titrate dose and concentration to optimize pain relief and function. We are limited in concentration for certain drugs to safely deliver medications through the pump and stay within the recommendations from the Polyanalges[employer] Consensus Committee Guidelines. Depending on dose and concentration these pumps may need to be refilled sooner than 3 months as we titrate. A UDS is needed to verify patient's compliance with our office pain contract. This is ordered based off specific treatments related to chronic pain with the potential to abuse certain medications.
== END 2024-06-27 23:59 | disposition home or self-care (01) ==
PROVIDERS: PCP Internal Medicine Adolescent Medicine; Visit Provider Nurse Practitioner Family
DX: M50.10 Cervical disc disorder with radiculopathy, unspecified cervical region (principal); M51.16 Intervertebral disc disorders with radiculopathy, lumbar region
CPT/HCPCS: 62368; 99212; 99213; G0463

== ENCOUNTER 2024-07-02 10:53 | Day surgery (SDC) | payer OTHER, SELFPAY ==
[2024-07-02 11:03] VITALS: BP 121/75; PULSE 76; RESP 16; O2SAT 96; BMI 28.1
[2024-07-02] MEDS: IOPAMIDOL-200 (41%);10ML VIAL 10 ML IV (11:03)
[2024-07-02] MEDS: DEXAMETHASONE 10MG/ML 1ML VIAL 10 MG (11:09)
[2024-07-02 11:10] VITALS: BP 129/51; PULSE 76; RESP 18; O2SAT 99
[2024-07-02] MEDS: LIDOCAINE 1% 5ML PF VIAL 5 ML (11:10)
[2024-07-02] MEDS: BUPIVACAINE 0.25% 10ML INJ 25 MG IJ (11:10)
[2024-07-02 11:11] VITALS: BP 129/51; PULSE 76; RESP 18; O2SAT 99
[2024-07-02 11:14] VITALS: BP 131/82; PULSE 70; RESP 16; O2SAT 98
--- NOTE | 2024-07-02 11:23 | P.PCN_ITS ---
Procedure Date: 07/02/24 Time: 11:10 Anesthesiologist:: Jan Kinney CRNA Complications:: None Pre-procedure Diagnosis:: Degenerative disc cervical spine multilevels. Cervical radiculopathy. Cervical spondylosis. Multilevel cervical facet arthropathy. Cervical postlaminectomy syndrome. Post-procedure Diagnosis:: Same Indications for Procedure:: Patient is a very pleasant 44-year-old female who comes our clinic today for ROUND TWO of cervical medial branch blocks/facet injections at the bilateral C4- 5, C5-6 level. Patient describes cervical neck pain as constant, dull, aching. She reports her head feeling very heavy on her shoulders at times. She has difficulty with cervical flexion, extension, left and right rotation. She rates her pain 7/10. Procedure Details:: Informed consent was obtained and the risk and benefits of the procedure was explained to the patient. Patient was placed prone on the procedure table. The patient was prepped and draped in sterile fashion. C-arm fluoroscopy was used to view the lumbar spine. The skin and subcutaneous tissues were anesthetized using lidocaine. I placed 20-gauge RF needles into the facet joints of C4-5, C5-6 levels on the right side. We underwent sensory stimulation. There is good sensory stimulation at 0.8 V. We underwent motor stimulation. There is no motor stimulation at 2.5 V. We then anesthetized these levels with lidocaine and Depo- Medrol. I used a total of 40 mg Depo-Medrol for both levels. I then burned both levels of C4-5, C5-6 facet joint/medial branches on the right side for 4 minutes at 80 ?C. Patient tolerated the procedure well with no complication. Plan and Disposition:: Patient was discharged without incident.
== END 2024-07-02 11:14 | disposition home or self-care (01) ==
PROVIDERS: PCP Internal Medicine Adolescent Medicine; Visit Provider Nurse Anesthetist, Certified Registered
DX: M47.812 Spondylosis without myelopathy or radiculopathy, cervical region (principal); M50.30 Other cervical disc degeneration, unspecified cervical region; M96.1 Postlaminectomy syndrome, not elsewhere classified
CPT/HCPCS: 64490; 64491; J1100; Q9966

== ENCOUNTER 2024-07-17 09:16 | Outpatient (POV) | payer OTHER, SELFPAY ==
[2024-07-17 10:25] VITALS: BP 107/63; PULSE 66; RESP 18; O2SAT 96; BMI 28.5
--- NOTE | 2024-07-17 11:09 | P.PCN_ITS ---
Procedure Date: 07/17/24 Time: 09:59 Anesthesiologist:: Stacie Charles APRN Complications:: None Pre-procedure Diagnosis:: Degenerative disc disease of cervical spine with cervical facet arthropathy, degenerative disc disease of lumbar spine with lumbar radiculopathy Post-procedure Diagnosis:: Same Indications for Procedure:: Patient is a pleasant 44-year-old female who presents today for suture and staple removal as well as pump adjustment and follow-up of her second cervical medial branch blocks C4-C5 and C5-C6 on 07/02/2024. Today she rates her overall pain as 6 out of 10. She does state that she had at least 80% improvement following the second cervical medial branch block that did last about a week or so. Patient does state that she really had not been experiencing any spasms up until yesterday. She states it was really severe at that time and she does want to proceed forward with the RFA as we have already reviewed over that. Patient does also state that her pump is working well but does want an adjustment. She is currently managed with morphine 1 mg/mL with a daily dose of 0.1051 mg/day. She denies any side effects. Her Jose has been reviewed and is appropriate. Physical Exam: General: Alert and oriented x3, no acute distress, pleasant and cooperative Lungs: Respirations even and unlabored, symmetrical chest expansion Eyes: PERRL Musculoskeletal: Flexion and extension of cervical [spine] somewhat guarded secondary to pain, positive Kemps test Neurological: Speech clear, no gross sensory deficit Skin: Incision sites are clean, dry, well-approximated with rito intact along the lateral incision Procedure Details:: Informed consent was obtained and the risk and benefits of the procedure were explained to the patient. Patient did have noninvasive monitoring was placed including noninvasive blood pressure cuff and pulse oximeter. Patient's pump was interrogated and was reprogrammed to morphine 0.1209 mg/day. The patient tolerated the procedure well with no complications. Plan and Disposition:: Patient tolerated the procedure well with no complications and was discharged neurologically intact. I did review over with her regarding the cervical RFA as she has had 2 successful cervical medial branch blocks providing more than 80% relief with each individual 1 but did very on how long they lasted. Patient was reviewed risk and benefits of the RFA and was counseled that we would do 1 side at this time as the cervical RFA is a little bit more painful. Patient does state that the right side does seem to be worse overall and as the pain is interfering with her ability perform activities of daily living such as cooking and cleaning she would like to proceed forward with the burning. Patient has tried and failed conservative therapy including oral medication, heat and ice, topicals, physical therapy, at home stretching exercise for longer than 12 weeks that was physician guided. Patient will be submitted for a right sided cervic al RFA with a non-pulsed 80 degree thermal burn of C4-C5 and C5-C6. Patient agrees with this plan of care. This procedure will be under fluoroscopic guidance. Patient has had longstanding chronic neck pain for longer than a year. Patient has been instructed to contact the clinic with any concerns before the next appointment. Dr. Sage has reviewed this note and agrees with this plan of care. This note was dictated using voice recognition software and make contain errors or omissions. All injections are used with Lidocaine, Bupivacaine and dexamethasone. Occasionally urine drug screen is needed to verify patient's compliance with our office pain contract. This is ordered based off specific treatments related to chronic pain with the potential to abuse certain medications.
== END 2024-07-17 23:59 | disposition home or self-care (01) ==
PROVIDERS: PCP Internal Medicine Adolescent Medicine; Visit Provider Nurse Practitioner Family
DX: Z48.02 Encounter for removal of sutures (principal); Z45.1 Encounter for adjustment and management of infusion pump; M50.30 Other cervical disc degeneration, unspecified cervical region; M47.812 Spondylosis without myelopathy or radiculopathy, cervical region; M51.16 Intervertebral disc disorders with radiculopathy, lumbar region; Z79.891 Long term (current) use of opiate analgesic
CPT/HCPCS: 62368; 99213; G0463

== ENCOUNTER 2024-08-06 09:18 | Day surgery (SDC) | payer OTHER, SELFPAY ==
[2024-08-06 09:34] VITALS: BP 118/54; PULSE 83; RESP 18; O2SAT 98; BMI 28.0
[2024-08-06] MEDS: BUPIVACAINE 0.25% 10ML INJ 25 MG IJ (09:50)
[2024-08-06 09:51] VITALS: BP 114/70; PULSE 85; RESP 18; O2SAT 97
[2024-08-06] MEDS: LIDOCAINE 1% 5ML PF VIAL 5 ML (09:51)
[2024-08-06] MEDS: DEXAMETHASONE 10MG/ML 1ML VIAL 10 MG (09:51)
[2024-08-06 09:53] VITALS: BP 114/70; PULSE 81; RESP 18; O2SAT 97
[2024-08-06] MEDS: IOPAMIDOL-200 (41%);10ML VIAL 3 ML IV (09:55)
--- NOTE | 2024-08-06 10:00 | P.PCN_ITS ---
Procedure Date: 08/06/24 Time: 09:45 Anesthesiologist:: Jan Kinney CRNA Complications:: None Pre-procedure Diagnosis:: Degenerative disc cervical spine multilevels. Cervical radiculopathy. Cervical facet arthropathy. Cervical spondylosis. Post-procedure Diagnosis:: Same. Indications for Procedure:: Patient is a very pleasant 44-year-old female who comes our clinic today for right C4-5, C5-6 radiofrequency ablation of the cervical spine. Patient describes posterior cervical neck pain as constant, dull, aching. She reports radicular symptoms to the bilateral shoulders at times. She responded very well to cervical facet blocks/medial branch block at the same level bilaterally. She rates her pain 6/10. Procedure Details:: Informed consent was obtained and the risk and benefits of the procedure was explained to the patient. Patient was placed prone on the procedure table. The patient was prepped and draped in sterile fashion. C-arm fluoroscopy was used to view the lumbar spine. The skin and subcutaneous tissues were anesthetized using lidocaine. I placed 20-gauge RF needles into the facet joints of C4-5, C5-6 levels on the right side. We underwent sensory stimulation. There is good sensory stimulation at 0.8 V. We underwent motor stimulation. There is no motor stimulation at 2.5 V. We then anesthetized these levels with lidocaine and dexamethasone. I used a total of 5 mg of dexamethasone for both levels. I then b urned both levels of C4-5, C5-6 facet joint/medial branches on the right side for 4 minutes at 80 ?C. Patient tolerated the procedure well with no complication. Plan and Disposition:: Patient was discharged without incident.
[2024-08-06 10:01] VITALS: BP 113/81; PULSE 82; RESP 18; O2SAT 99
== END 2024-08-06 10:01 | disposition home or self-care (01) ==
PROVIDERS: PCP Internal Medicine Adolescent Medicine; Visit Provider Nurse Anesthetist, Certified Registered
DX: M50.10 Cervical disc disorder with radiculopathy, unspecified cervical region (principal); M47.22 Other spondylosis with radiculopathy, cervical region; F32.9 Major depressive disorder, single episode, unspecified; J45.909 Unspecified asthma, uncomplicated; F17.210 Nicotine dependence, cigarettes, uncomplicated; Z79.899 Other long term (current) drug therapy
CPT/HCPCS: 64635; 64636; J0665; J1100; J2003; Q9966

== ENCOUNTER 2024-08-21 15:23 | Outpatient (POV) | payer OTHER, SELFPAY ==
--- OUTSIDE RECORDS SUMMARY | 2024-08-21 15:27 | XMS_ITS | Clinical Summary ---
Author Organization [facility] [place] [facility] Address [address] [place] [address] Phone Care Team Providers Care Mill Set Up Name Role Phone Unavailable Primary Care Provider Unavailabl e Allergies No known active allergies Medications * This document contains information received from the source organization and may not represent a complete record from that organization. VIT/FE FUMARATE/FA ( 1+1 ORAL) Take by mouth. Active BUTALB/ACETAMINO PHEN/CAFFEINE (FIORICET ORAL) Take by mouth. Active butalbital-aceta minophen-caffein e (ESGIC PLUS) per tablet Take 1 Tab by mouth every 4 hours as needed for Pain for 20 doses. 20 Tab 0 09/08/2010 Active PLUS, CALCIUM CARB, 27-1 mg Tab TAKE ONE TABLET BY MOUTH EVERY DAY 30 Each 2 02/02/2011 Active Surgical History Surgery Date Site/Laterality Comments TONSILLECTOMY Medical History Medical History Date Comments Miscarriage Anxiety Depression Social History Tobacco Use Types Packs/Day Years Used Date Smoking Tobacco: Every Day Cigarettes Alcohol Use Standard Drinks/Week Comments Yes 0 (1 standard drink = 0.6 oz pure alcohol) occasional none since Comments Yes Sex and Gender Information Value Date Recorded Sex Assigned at Not on file Legal Sex Female 9:39 PM EDT Gender Identity Not on file Sexual Orientation Not on file Obstetrics History Para Term AB IAB SAB Ectopic Multiple Livin g Live Births 6 2 3 3 2 Date Outcome GA Total Labor Labor/2nd/3rd Weight Sex Type Anes PTL Evelyn A1 A5 Name Clin Para Para SAB SAB SAB Current Last Filed Vital Signs Vital Sign Reading Time Taken Comments Blood Pressure 141/70 09/08/2010 11:50 PM EDT Pulse 104 09/08/2010 11:50 PM EDT Temperature 37.3 C (99.2 F) 09/08/2010 11:50 PM EDT Respiratory Rate 20 09/08/2010 11:50 PM EDT Oxygen Saturation 98% 09/08/2010 11:25 AM EDT Inhaled Oxygen Concentration - - Weight 85.3 kg (188 lb) 09/08/2010 11:50 PM EDT Height 170.2 cm (5' 7 ) 09/08/2010 11:50 PM EDT Body Mass Index 29.44 09/08/2010 11:50 PM EDT Plan of Treatment Health Maintenance Due Date Last Done Comments Annual Wellness Exam 1985 DTaP/TDaP/Td (1 - Tdap) 2001 Hepatitis B Vaccine (1 of 3 - 19+ 3-dose series) 2001 HPV/Pap Cotest 2012 Cervical Cancer Screening 07/29/2013 Pap Smear 07/29/2013 07/29/2010, 10/29/2009 Breast Cancer Screening 2022 COVID-19 Vaccine (1 - 2023-2 5 season) 2023 Influenza Vaccine (#1) 2024 RSV or 60+ (1 - 1-dose 75+ series) 2057 Meningococcal B Vaccine Aged Out No l onger eligible based on patient's age to complete this topic Pneumococcal Vaccine 0-49 Aged Out No longer eligible based on patient's age to complete this topic Procedures Procedure Name Priority Date/Time Associated Diagnosis Comments DIP STAND LOADER CYTOLOGY REPORT Routine 10/29/2009 5 :37 AM EDT from Last 3 Months or Most Recently Relevant to Health Maintenance Results * DIP STAND LOADER CYTOLOGY REPORT (10/29/2009 5:37 AM EDT) Credit Products Officer Cytology Report PATIENT NAME:ANIKA GOODMAN Credit Products Officer Cytology Report Accession Number Collected Date/Time Received Date/Time [id number] 10/29/09 05:37 EDT 10/30/09 05:37 EDT GY Specimen Source Specimen Vag/Cerv/Endocx?: Cervical/Endocervi leticia Statement of Adequacy Satisfactory for Evaluation. Transformation Zone Present. Diagnosis NEGATIVE FOR INTRAEPITHELIAL LESION OR MALIGNANCY. Comment The Pap Smear is a screening test that aids in the detection of cervical cancer and cancer precursors. Both false positive and false negative results can occur. The test should be used at regular intervals, and positive results should be confirmed before definitive therapy. Processed using the ThinPrep [employer]idential Insurance Inspector automated cytology screening device (Gratafy). Insulation Cupola Charger: [email or web address] 11/11/2009 Completed by: MALIK Snell (Electronically signed by) 11/11/2009 [facility] 10/29/2009 5:37 AM EDT us Bonnie Carlos PA-C PATHOLOGY ORDERABLES Final Resu lt [facility] [address] [place] [address] from Last 3 Months or Most Recently Relevant to Health Maintenance Insurance [employer] NO CONTRACT [employer] COMP
--- OUTSIDE RECORDS SUMMARY | 2024-08-21 15:28 | XMS_ITS | Referral Summary ---
Author Organization [facility] ([place], [place], [place], [place]) Address [address] [place] [address] Care Team Providers Care Section Repairer Name Role Phone Unavailable Primary Care Provider Unavailabl e Social History Tobacco Use Types Packs/Day Years Used Date Smoking Tobacco: Never Assessed Comments Unknown Sex and Gender Information Value Date Recorded Sex Assigned at Female 10/22/2021 6:26 PM CDT Legal Sex Female 6:26 PM CDT Gender Identity Female 10/22/2021 6:26 PM CDT Sexual Orientation Not on file Plan of Treatment Not on file
--- OUTSIDE RECORDS SUMMARY | 2024-08-21 15:28 | XMS_ITS | Clinical Summary ---
Author Organization [facility] ([place], [place], [place], [place]) Address [address] [place] [address] Care Team Providers Care Chicken Hatchery Helper Name Role Phone Unavailable Primary Care Provider [...]
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
--- NOTE | 2024-08-21 16:08 | P.PCN_ITS ---
Procedure Date: 08/21/24 Time: 16:08 Anesthesiologist:: Stacie Charles APRN Complications:: None Pre-procedure Diagnosis:: Degenerative disc disease of cervical spine with cervical facet arthropathy, degenerative disc disease lumbar spine with lumbar radiculopathy symptoms, chronic pain syndrome Post-procedure Diagnosis:: Same Indications for Procedure:: Patient is a pleasant 44-year-old female who presents today for ER pump adjustment as well as follow-up of her right sided cervical RFA C4-C5 and C5-C6 on 08/06/2024. She is rating 85% relief following this procedure and would like to proceed forward with the left side. Patient states that it was basically immediate that she noticed this relief. She states that she does feel like her range of motion is better and that between this procedure and the pump that she has been doing much better. 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 Patient denies any problems following her pump implant. Patient is currently managed with morphine 1 mg/mL with a daily dose of 0.1209 mg/day. She denies any side effects. Her Jose has been reviewed and is appropriate. Physical Exam: General: Alert and oriented x3, no acute distress, pleasant and cooperative Lungs: Respirations even and unlabored, symmetrical chest expansion Eyes: PERRL Musculoskeletal: Flexion and extension of cervical [spine] somewhat guarded secondary to pain, positive Kemps test Neurological: Speech clear, no gross sensory deficit Procedure Details:: informed consent was obtained and the risk and benefits of the procedure were explained to the patient. Patient did have noninvasive monitoring was placed including noninvasive blood pressure cuff and pulse oximeter. Patient's pump was interrogated and was reprogrammed to increased 10%. The patient tolerated the procedure well with no complications. Plan and Disposition:: Patient tolerated the procedure well with no complications and was discharged neurologically intact. We did also set the patient up with her bolus device today and explained how to use this. Patient has been cleared from all her postop restrictions and her incisions are completely healed and look wonderful. Patient was counseled regarding the cervical RFA along the left side risk and benefits and she would like to proceed forward with this plan of care. Patient has had significant relief with the right sided RFA with 85% improvement and did also have significant relief with each of her cervical medial branch blocks. Patient was counseled that we will submit to insurance for the left C4-C5, C5-C6 cervical radiofrequency ablation. This will be done as a nonpulsed thermal ablation at 80 degrees. This will be under fluoroscopic guidance. Patient agrees with this plan of care. Patient has tried and failed conservative therapy including oral medications, heat, topicals, physical therapy and continued at home exercising and stretching for longer than 12 weeks. We will see the patient back in the clinic at the next intrathecal refill. Patient has been instructed to contact the clinic with any concerns before the next appointment. Dr. Sage has reviewed this note and agrees with this plan of care. This note was dictated using voice recognition software and make contain errors or omissions. -- It Is medically necessary for this patient to continue to have their intrathecal pump refilled at regular intervals. This patient had an intrathecal pain pump implanted after meeting criteria of chronic intractable pain for greater than 3 months and failing conservative treatments. Patient has committed and been compliant to the treatment plan and all planned follow up care. Since implantation of the intrathecal pain pump, the patient has had decreased pain and been more functional. Oral medications have been reduced including intake of oral opioids. Patient continues to do well with intrathecal therapy with decrease in pain symptoms and increase in functional status. Stopping intrathecal medications can lead to life threatening withdrawal, seizures, cardiac arrest, severe pain, and possible . Pumps that are not refilled at regular intervals can be damages and cause and need for replacement. We continually titrate dose and concentration to optimize pain relief and function. We are limited in concentration for certain drugs to safely deliver medications through the pump and stay within the recommendations from the Polyanalgesic Consensus Committee Guidelines. Depending on dose and concentration these pumps may need to be refilled sooner than 3 months as we titrate. A UDS is needed to verify patient's compliance with our office pain contract. This is ordered based off specific treatments related to chronic pain with the p otential to abuse certain medications.
[2024-08-21 16:16] VITALS: BP 108/76; PULSE 85; RESP 18; O2SAT 97; BMI 28.8
== END 2024-08-21 23:59 | disposition home or self-care (01) ==
PROVIDERS: PCP Internal Medicine Adolescent Medicine; Visit Provider Nurse Practitioner Family
DX: M47.812 Spondylosis without myelopathy or radiculopathy, cervical region (principal); M51.16 Intervertebral disc disorders with radiculopathy, lumbar region; G89.4 Chronic pain syndrome
CPT/HCPCS: 62368; 99213; G0463

== ENCOUNTER 2024-09-20 09:00 | Day surgery (SDC) | payer OTHER, SELFPAY ==
--- NOTE | 2024-09-20 09:02 | EXP.PM.HP ---
History of Present Illness *Admission Date: 09/20/24 *Reason for visit:: Intrathecal refill; DDD *History of present illness: Same [facility] Disclaimer: The information contained in this section may have been updated after the patient was seen, as this information can be updated by other users. Medical History High risk sexual behavior MDD (major depressive disorder), recurrent episode Asthma Migraine Eczema Allergies Surgical History History of esophagogastroduodenoscopy (EGD) History of colonoscopy History of neck surgery History of tonsillectomy History of hysterectomy Family History Father Cancer Other Esophageal cancer Family history of hypertension Hyperlipidemia Lung cancer Social History Smoking Status: Current every day smoker tobacco type: cigarettes packs per day: 1 second hand exposure: No alcohol intake: never substance use type: denies use current occupational status: other Travel in the last 8 weeks?: None household members: children housing: house marital status: caffeine: Yes Have you lived/traveled outside [place] in past 30 days?: No Contact w/someone who lives/traveled outside US past 30 days?: No Exposure to someone with infectious disease in past 14 days?: No Do you have a fever (greater than 100.4 F or 38 C)?: No Have you tested positive for COVID-19?: No Exposed to someone with COVID-19 in past 14 days?: No Do you have a sore throat?: No Do you have a cough?: No Do you have any weakness?: No Do you have any diarrhea?: No Are you experiencing any unusual bleeding?: No Do you have any muscle aches/pain?: No Do you have any abdominal pain?: No Are you experiencing loss of taste or smell?: No Other Medical History Have you received the Flu Vaccine for this season: No Have you received the Pneumonia Vaccine: No Review of Systems Review of Systems Review of systems:: pertinent systems reviewed and negative unless documented below Review of systems (narrative): Review of Systems: General: No recent weight changes, no fever, no sleep disturbances Respiratory: No cough, no shortness of air, no recurring pulmonary infections Cardiovascular/peripheral vascular: No chest pain, no palpitations, no edema, no shortness of breath Gastrointestinal: No new onset incontinence, normal bowel movements reported Genitourinary: No new onset incontinence Musculoskeletal: Chronic back pain Psychiatric: [Normal mood/affect] Neurological: [Denies weakness in extremities], [denies balance issues] Meds Home Medications and Allergies Home Medications ?Medication ?Instructions ?Recorded ?Confirmed ?Type B-complex with vitamin C 1 cap PO DAILY Supplement 12/09/20 08/21/24 History cholecalciferol (vitamin D3) 50 50 mcg PO DAILY Supplement 12/09/20 08/21/24 History mcg (2,000 unit) capsule magnesium 30 mg tablet 30 mg PO DAILY Supplement 12/09/20 08/21/24 History clobetasol 0.05 % scalp solution 1 ml topical DAILY exzema 06/08/21 08/21/24 History duloxetine 60 mg capsule,delayed 60 mg PO .2 tablets QD Depression 05/18/22 08/21/24 History release acetaminophen 500 mg tablet 500 mg PO Q6H PRN Pain 01/19/23 08/21/24 History (Tylenol Extra Strength) bupropion HCl 300 mg 24 hr tablet, 300 mg PO DAILY 09/26/23 08/21/24 History extended release (Wellbutrin XL) thiamine HCl (vitamin B1) 100 mg 100 mg PO DAILY 09/26/23 08/21/24 History tablet spironolactone 100 mg tablet See Rx Instructions .Route 10/31/23 08/21/24 Rx .COMPLEX #30 tabs naproxen 500 mg tablet 500 mg PO BID 11/22/23 08/21/24 History valacyclovir 1 gram tablet 1,000 mg PO DAILY PRN hsv #30 tabs 12/05/23 08/21/24 Rx (Valtrex) fexofenadine 60 mg-pseudoephedrine 1 tab PO DAILY 04/08/24 08/21/24 History ER 120 mg tablet,ext.release,12 hr (Mimi-D 12 Hour) hydrocodone 7.5 mg-ibuprofen 200 1 tab PO BID #60 tabs 05/30/24 08/21/24 Rx mg tablet omeprazole 20 mg capsule,delayed See Rx Instructions .Route 06/21/24 08/21/24 Rx release .COMPLEX #30 caps sulfamethoxazole 800 1 tab PO BID #20 tabs 06/21/24 08/21/24 Rx mg-trimethoprim 160 mg tablet sulfamethoxazole 800 1 tab PO BID #20 tabs 06/24/24 08/21/24 Rx mg-trimethoprim 160 mg tablet baclofen 10 mg tablet See Rx Instructions .Route 07/31/24 08/21/24 Rx .COMPLEX #60 tabs New Prescriptions to Start Prescriptions: Allergies Allergy/AdvReac Type Severity Reaction Status Date / Time No Known Allergies Allergy Verified 06/21/24 11:15 Exam Constitutional Constitutional: no acute distress *Routine HEENT Exam Head: Present normocephalic and atraumatic Eye: Present PERRL ENT: Present mucous membranes moist *Routine Neck Exam Neck: Present supple *Routine Respiratory Exam Respiratory: Present CTA bilaterally *Routine Cardiovascular Exam Cardiovascular: Present RRR *Routine Abdominal Exam Abdominal: Present soft *Routine Rectal Exam Rectal:: deferred *Routine Genitalia Exam Genitalia:: deferred Routine Back/Spine/Pelvis Exam Back/Spine: Present pain with flexion *Routine Skin Exam Skin: Present intact and warm *Routine Neurological Exam Neurological: Present alert and oriented X3 Routine Psychiatric Exam Psychiatric: Present normal affect and normal thought process Assessment and Plan *Assessment and plan (1) Facet arthropathy, cervical: Status: Acute Category: Medical Code(s): M47.812 - Spondylosis without myelopathy or radiculopathy, cervical region (2) Chronic pain syndrome: Status: Acute Category: Medical Code(s): G89.4 - Chronic pain syndrome
--- NOTE | 2024-09-20 09:03 | EXP.PAIN.PRO ---
Procedure Date: 09/20/24 Time: 09:45 Anesthesiologist:: Stacie Charles APRN Complications:: None Pre-procedure Diagnosis:: Degenerative disc disease of cervical spinal, cervical radiculopathy, facet arthropathy, chronic pain syndrome Post-procedure Diagnosis:: Same Indications for Procedure:: Patient is a pleasant 44-year-old female who presents today for intrathecal refill and reprogramming. Today she rates her pain as 7 out of 10. She denies any new trauma or injury. She does state that she has been having to rely on some naproxen her bolus device and other [id number] medication and would like an increase if possible. Patient is scheduled for a RFA coming up on Monday. Patient is currently managed with morphine 1 mg/mL with a daily dose of 0.13 to 8 mg/day. She denies any side effects. Her Jose has been reviewed and is appropriate. Physical Exam: General: Alert and oriented x3, no acute distress, pleasant and cooperative Lungs: Respirations even and unlabored, symmetrical chest expansion Eyes: PERRL Musculoskeletal: Flexion and extension of lumbar [spine] somewhat guarded secondary to pain, [antalgic gait noted] Neurological: Speech clear, no gross sensory deficit Procedure Details:: Informed consent was obtained and the risk and benefits of the procedure were explained to the patient. The patient had noninvasive monitoring placed including noninvasive blood pressure cuff and pulse oximeter. Patient's pump was interrogated. The area over the pump was cleansed with chlorhexidine as a cleansing solution. In sterile fashion the pump was accessed with a 22-gauge needle. Approximately 8.1 mls of the pump solution was removed and discarded appropriately. The pump was then refilled with 20 mL's of morphine 1 mg/mL. The needle was withdrawn and a bandage was placed over the puncture site. The infusion rate was reprogrammed and increased to morphine 0.1461 mg/day. The patient tolerated well with no complication. Plan and Disposition:: Patient tolerated the procedure well with no complications and was discharged neurologically intact. I will also increase her concentration on her compounded cream and send refills. Patient will return to clinic on or before their next intrathecal refill date. We will see the patient back in the clinic at the next intrathecal refill. Patient has been instructed to contact the clinic with any concerns before the next appointment. Dr. Sage has reviewed this note and agrees with this plan of care. This note was dictated using voice recognition software and make contain errors or omissions. -- It Is medically necessary for this patient to continue to have their intrathecal pump refilled at regular intervals. This patient had an intrathecal pain pump implanted after meeting criteria of chronic intractable pain for greater than 3 months and failing conservative treatments. Patient has committed and been compliant to the treatment plan and all planned follow up care. Since implantation of the intrathecal pain pump, the patient has had decreased pain and been more functional. Oral medications have been reduced including intake of oral opioids. Patient continues to do well with intrathecal therapy with decrease in pain symptoms and increase in functional status. Stopping intrathecal medications can lead to life threatening withdrawal, seizures, cardiac arrest, severe pain, and possible . Pumps that are not refilled at regular intervals can be damages and cause and need for replacement. We continually titrate dose and concentration to optimize pain relief and function. We are limited in concentration for certain drugs to safely deliver medications through the pump and stay within the recommendations from the Polyanalgesic Consensus Committee Guidelines. Depending on dose and concentration these pumps may need to be refilled sooner than 3 months as we titrate. A UDS is needed to verify patient's compliance with our office pain contract. This is ordered based off specific treatments related to chronic pain with the potential to abuse certain medications.
[2024-09-20 09:08] VITALS: BP 113/83; PULSE 88; RESP 18; O2SAT 98; BMI 28.3
[2024-09-20 09:38] VITALS: BP 114/76; PULSE 75; RESP 18; O2SAT 97
[2024-09-20 09:50] VITALS: BP 118/74; PULSE 73; RESP 16; O2SAT 98
== END 2024-09-20 09:52 | disposition home or self-care (01) ==
PROVIDERS: PCP Internal Medicine Adolescent Medicine; Visit Provider Nurse Practitioner Family
DX: Z45.1 Encounter for adjustment and management of infusion pump (principal); M50.10 Cervical disc disorder with radiculopathy, unspecified cervical region; G89.4 Chronic pain syndrome; M47.22 Other spondylosis with radiculopathy, cervical region; J45.909 Unspecified asthma, uncomplicated; F32.9 Major depressive disorder, single episode, unspecified; F17.210 Nicotine dependence, cigarettes, uncomplicated
CPT/HCPCS: 62370

== ENCOUNTER 2024-09-24 10:47 | Day surgery (SDC) | payer OTHER, SELFPAY ==
[2024-09-24 10:50] VITALS: BP 124/77; PULSE 69; RESP 18; O2SAT 99; BMI 28.1
[2024-09-24] MEDS: LIDOCAINE 1% 5ML PF VIAL 5 ML (11:00)
[2024-09-24] MEDS: DEXAMETHASONE 10MG/ML 1ML VIAL 10 MG (11:00)
[2024-09-24] MEDS: BUPIVACAINE 0.25% 10ML INJ 25 MG IJ (11:00)
[2024-09-24 11:01] VITALS: BP 117/70; PULSE 71; PULSE 74; RESP 18; O2SAT 100
[2024-09-24] MEDS: IOPAMIDOL-200 (41%);10ML VIAL 2 ML IV (11:01)
--- NOTE | 2024-09-24 11:08 | EXP.PAIN.PRO ---
Procedure Date: 09/24/24 Time: 10:50 Anesthesiologist:: Jan Kinney CRNA Complications:: None Pre-procedure Diagnosis:: Degenerative disc cervical spine multilevels. Cervical radiculopathy. Cervical facet arthropathy. Cervical spondylosis. Cervical postlaminectomy syndrome. Post-procedure Diagnosis:: Same Indications for Procedure:: Patient is a very pleasant 44-year-old female who comes our clinic today for a left C5-6, C6-7 radiofrequency ablation. Patient describes cervical neck pain as constant, dull, aching. She is status post a right cervical radiofrequency ablation same levels. She reports her right side of her cervical spine is much better she rates her left cervical pain today 08/22. Procedure Details:: Informed consent was obtained and the risk and benefits of the procedure was explained to the patient. Patient was placed prone on the procedure table. The patient was prepped and draped in sterile fashion. C-arm fluoroscopy was used to view the lumbar spine. The skin and subcutaneous tissues were anesthetized using lidocaine. I placed 20-gauge RF needles into the facet joints of C5- C6 and C6-C7 levels on the left side. We underwent sensory stimulation. There is good sensory stimulation at 0.8 V. We underwent motor stimulation. There is no motor stimulation at 2.5 V. We then anesthetized these levels with lidocaine and dexamethasone. I used a total of 5 mg of dexamethasone for both levels. I then burned both levels of C5-C6 and C6-C7 facet joint/medial branches on the right side for 4 minutes at 80 ?C. Patient tolerated the procedure well with no complication. Plan and Disposition:: Patient was discharged without incident.
[2024-09-24 11:10] VITALS: BP 121/72; PULSE 74; RESP 18; O2SAT 99
== END 2024-09-24 11:10 | disposition home or self-care (01) ==
PROVIDERS: PCP Internal Medicine Adolescent Medicine; Visit Provider Nurse Anesthetist, Certified Registered
DX: M50.120 Mid-cervical disc disorder, unspecified level (principal); M47.22 Other spondylosis with radiculopathy, cervical region; M96.1 Postlaminectomy syndrome, not elsewhere classified; J45.909 Unspecified asthma, uncomplicated; F32.9 Major depressive disorder, single episode, unspecified; F17.210 Nicotine dependence, cigarettes, uncomplicated; Z79.891 Long term (current) use of opiate analgesic; Z79.899 Other long term (current) drug therapy
CPT/HCPCS: 64633; 64634; J0665; J1100; J2003; Q9966

== ENCOUNTER 2024-12-18 15:17 | Outpatient (CLI) | payer OTHER, SELFPAY ==
--- OUTSIDE RECORDS SUMMARY | 2024-12-18 15:20 | XMS_ITS | Clinical Summary ---
Author Organization [facility] [place] [facility] Address 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 Processed using the ThinPrep Epic Cadence Analyst automated cytology screening device ([employer]). Database Administration Manager: FACUNDO 11/11/2009 Completed by: MALIK Snell (Electronically signed by) 11/11/2009 [facility] 10/29/2009 5:37 AM EDT us Bonnie Carlos PA-C PATHOLOGY ORDERABLES Final Resu lt [facility] [address] [place] [address] from Last 3 Months or Most Recently Relevant to Health Maintenance Insurance 

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
--- OUTSIDE RECORDS SUMMARY | 2024-12-18 15:22 | XMS_ITS | Referral Summary ---
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
--- OUTSIDE RECORDS SUMMARY | 2024-12-18 15:22 | XMS_ITS | Clinical Summary ---
Author Organization [employer] ([place], [place], [place], [place], [place]) Address [address] [place] [address] Care Team Providers Care Die Attaching Machine Tender Name Role Phone Unavailable Primary Care Provider [...]
--- OUTSIDE RECORDS SUMMARY | 2024-12-18 15:22 | XMS_ITS | Clinical Summary ---
Author Organization [facility] Address [address] [place] [address] Care Team Providers Care Per Assessment Nurse Name Role Phone Adam Manriquez MD Unavailable [phone] None, None Primary Care Provider Unavailabl e Allergies No known active allergies Medications bupropion XL (WELLBUTRIN XL) 150 mg tablet Take 150 mg by mouth daily. Active naproxen (NAPROSYN) 500 mg tablet Take 500 mg by mouth 2 times daily (with meals). Active magnesium oxide (MAG-OX) 400 mg (241.3 mg magnesium) tablet Take 400 mg by mouth daily (with lunch). Active vit,leticia 73/iron/folic ( vitamin with iron - folic acid) Tablet Take 1 Tab by mouth daily. Active loratadine (CLARITIN) 10 mg tablet Take 10 mg by mouth daily. Active B complex with vitamin C Tablet Take 1 Tab by mouth daily. Active Active Problems Problem Noted Date Diagnosed Date Cervical radiculopathy 07/03/2020 Family History Medical History Relation Name Comments High Blood Pressure Father High Blood Pressure Mother Heart Problems Paternal Grandmother afib Anesthesia Complications Neg Hx Relation Name Status Comments Father Mother Paternal Grandmother Social History Tobacco Use Types Packs/Day Years Used Date Smoking Tobacco: Former Smokeless Tobacco: Former Comments:quit one week ago Alcohol Use Standard Drinks/Week Comments Not Currently 0 (1 standard drink = 0.6 oz pur e alcohol) Comments No Sex and Gender Information Value Date Recorded Sex Assigned at Not on file Legal Sex Female 11:28 AM EDT Gender Identity Not on file Sexual Orientation Not on file Last Filed Vital Signs Vital Sign Reading Time Taken Comments Blood Pressure 116/65 07/03/2020 10:02 AM EDT Pulse 65 07/03/2020 10:02 AM EDT Temperature 36.4 C (97.5 F) 07/03/2020 9:33 AM EDT Respiratory Rate 14 07/03/2020 10:02 AM EDT Oxygen Saturation 97% 07/03/2020 10:02 AM EDT Inhaled Oxygen Concentration - - Weight 74.4 kg (164 lb) 07/03/2020 6:01 AM EDT Height 170.2 cm (5' 7 ) 07/03/2020 6:01 AM EDT Body Mass Index 25.69 07/03/2020 6:01 AM EDT Plan of Treatment Health Maintenance Due Date Last Done Comments Lipid Screening 2000 Tetanus Vaccination (Every 10 Years) 2000 Cervical Cancer Screening 2003 HPV Vaccine (1 - 3-dose SCDM series) 2009 Depression Screening 02/14/2024 COVID-19 Vaccine ( season) 2024 Influenza Vaccination (#1) 2024 Medical Devices Implanted Type Area Lumber Material Handler Device Identifier Shelf Expiration Date Model / Serial / Lot Scr Suki 4.2x12mm - [id number] Implanted:Qty : 4 on 07/03/2020 by Adam Manriquez MD at [facility] Screw Spine Cervical * DIAN [id number] / / Bone Cerv Allograft 6x8 - [id number] Implanted:Qty : 1 on 07/03/2020 by Adam Manriquez MD at [facility] Spine Cervical * LIFENET 12/25/2024 [id number] / [id number] / Plt Trinica Allyn 1 Lev 20mm - [id number] Implanted:Qty : 1 on 07/03/2020 by Adam Manriquez MD at [facility] Spine Cervical * DIAN [id number] / / Insurance WORKERS COMPENSATION SELF Care Teams Per Assessment Nurse Relationship Specialty Start Date End Date None, None [address] [place] [address] PCP - General 07/03/20 Adam Manriquez MD [address] [place], [place] [address] [place] [address] Orthopedic Surgery 06/25/20
[2024-12-18 17:06] LABS: Hematocrit 46.9 % (37.0-47.0); Hemoglobin 15.7 g/dL (12.2-16.2); Immature Granulocytes % 0.4 %; Mean Corpuscular HGB Conc 33.5 g/dL (31.8-35.4); Mean Corpuscular Hemoglobin 29.0 pg (27.0-31.2); Mean Corpuscular Volume 86.7 fl (81-99); Nucleated Red Blood Cells % 0 %; Platelet Count 251 K/mm3 (142-424); Red Blood Count 5.41 M/mm3 (4.20-5.40); Red Cell Distribution Width-SD 41.5 fL; White Blood Count 9.4 K/mm3 (4.8-10.8)
[2024-12-18 18:55] LABS: Alanine Aminotransferase 16 U/L (12-78); Albumin Level 3.9 g/dl (3.5-5.0); Albumin/Globulin Ratio 1.3 (1.1-1.8); Alkaline Phosphatase 92 U/L (38-126); Anion Gap 10.9 mEq/L (5-15); Aspartate Amino Transferase 22 U/L (14-36); Bilirubin,Total 0.5 mg/dl (0.2-1.3); Blood Urea Nitrogen 10 mg/dl (7-17); Calcium 8.6 mg/dl (8.4-10.2); Carbon Dioxide 26 mmol/L (22.0-30.0); Chloride 102 mmol/L (98-107); Cholesterol 178 mg/dl (140-200); Creatinine,Serum 0.80 mg/dl (0.52-1.04); Estimated Glomerular Filt Rate 79 ml/min (>60); GFR (African American) 95 ML/MIN (>60); Globulin 3.0 g/dL (1.3-3.2); Glucose 85 mg/dl (74-100); HDL Cholesterol 32 mg/dl (40-60); Potassium 3.9 mmoL/L (3.5-5.1); Sodium 135 mmol/L (136-145); Total Protein,Serum 6.9 g/dl (6.3-8.2); Triglycerides 207 mg/dl (30-150)
[2024-12-18 19:12] LABS: 25-OH Vitamin D, Total 75.3 ng/mL (30-100)
[2024-12-18 19:15] LABS: Free Thyroxine Index 3.4 ug/dL (5.93-13.13); T4 (Thyroxine) 9.2 ug/dl (5.53-11.0); Triiodothryronine (T3) Uptake 37 % (23.5-40.5)
[2024-12-18 19:28] LABS: Thyroid Stimulating Hormone 1.92 uIU/mL (0.465-4.68)
[2024-12-18 19:46] LABS: Vitamin B12 625 pg/mL (239-931)
[2024-12-18 20:04] LABS: Folate 5.32 ng/mL
== END 2024-12-18 23:59 | disposition home or self-care (01) ==
LOC: LAB 15:18
PROVIDERS: PCP Internal Medicine Adolescent Medicine; Visit Provider Nurse Practitioner Obstetrics & Gynecology
DX: M54.16 Radiculopathy, lumbar region (principal); Z79.899 Other long term (current) drug therapy; R53.81 Other malaise; R53.83 Other fatigue; R63.5 Abnormal weight gain
CPT/HCPCS: 36415; 80053; 80061; 82306; 82607; 82746; 84436; 84443; 84479; 85025

== ENCOUNTER 2024-12-27 10:31 | Day surgery (SDC) | payer OTHER, SELFPAY ==
[2024-12-27 10:32] VITALS: BP 109/73; PULSE 80; RESP 16; O2SAT 99; BMI 27.8
[2024-12-27] MEDS: DEXAMETHASONE 10MG/ML 1ML VIAL 10 MG (10:42)
[2024-12-27] MEDS: LIDOCAINE 1% 30ML PF VIAL 30 ML (10:44)
[2024-12-27 10:45] VITALS: BP 110/85; PULSE 86; RESP 18; O2SAT 99
[2024-12-27 10:49] VITALS: BP 110/85; PULSE 86; RESP 18; O2SAT 99
[2024-12-27 10:54] VITALS: BP 117/65; PULSE 85; RESP 18; O2SAT 99
--- NOTE | 2024-12-27 10:58 | EXP.HP ---
History of Present Illness *Admission Date: 12/27/24 *Reason for visit:: Lumbar epidural steroid injection *History of present illness: The patient is a pleasant 44-year-old white female who has an intrathecal pain pump. She has right leg radicular symptoms. She presents for lumbar epidural steroid injection today. [facility] Disclaimer: The information contained in this section may have been updated after the patient was seen, as this information can be updated by other users. Medical History (Updated 12/27/24 @ 10:59 by Hunter Sage MD) Breast cancer screening by mammogram High risk sexual behavior MDD (major depressive disorder), recurrent episode Asthma Migraine Eczema Allergies Surgical History History of esophagogastroduodenoscopy (EGD) History of colonoscopy History of neck surgery History of tonsillectomy History of hysterectomy Family History Father Cancer esophageal Other Esophageal cancer Family history of hypertension Hyperlipidemia Lung cancer Social History Smoking Status: Current every day smoker tobacco type: cigarettes packs per day: 1 second hand exposure: No alcohol intake: never substance use type: denies use current occupational status: other Travel in the last 8 weeks?: None household members: children housing: house marital status: caffeine: Yes Other Medical History Have you received the Flu Vaccine for this season: No Have you received the Pneumonia Vaccine: No Meds Home Medications and Allergies Home Medications ?Medication ?Instructions ?Recorded ?Confirmed ?Type B-complex with vitamin C 1 cap PO DAILY Supplement 12/09/20 12/27/24 History cholecalciferol (vitamin D3) 50 50 mcg PO DAILY Supplement 12/09/20 12/27/24 History mcg (2,000 unit) capsule magnesium 30 mg tablet 30 mg PO DAILY Supplement 12/09/20 12/27/24 History clobetasol 0.05 % scalp solution 1 ml topical DAILY exzema 06/08/21 12/27/24 History duloxetine 60 mg capsule,delayed 60 mg PO .2 tablets QD Depression 05/18/22 12/27/24 History release acetaminophen 500 mg tablet 500 mg PO Q6H PRN Pain 01/19/23 12/27/24 History (Tylenol Extra Strength) bupropion HCl 300 mg 24 hr tablet, 300 mg PO DAILY 09/26/23 12/27/24 History extended release (Wellbutrin XL) thiamine HCl (vitamin B1) 100 mg 100 mg PO DAILY 09/26/23 12/27/24 History tablet naproxen 500 mg tablet 500 mg PO BID 11/22/23 12/27/24 History valacyclovir 1 gram tablet 1,000 mg PO DAILY PRN hsv #30 tabs 12/05/23 12/27/24 Rx (Valtrex) fexofenadine 60 mg-pseudoephedrine 1 tab PO DAILY 04/08/24 12/27/24 History ER 120 mg tablet,ext.release,12 hr (Mimi-D 12 Hour) hydrocodone 7.5 mg-ibuprofen 200 1 tab PO BID #60 tabs 05/30/24 12/27/24 Rx mg tablet omeprazole 20 mg capsule,delayed See Rx Instructions .Route 06/21/24 12/27/24 Rx release .COMPLEX #30 caps sulfamethoxazole 800 1 tab PO BID #20 tabs 06/21/24 12/27/24 Rx mg-trimethoprim 160 mg tablet sulfamethoxazole 800 1 tab PO BID #20 tabs 06/24/24 12/27/24 Rx mg-trimethoprim 160 mg tablet baclofen 10 mg tablet See Rx Instructions .Route 10/23/24 12/27/24 Rx .COMPLEX #60 tabs spironolactone 100 mg tablet 100 mg PO DAILY #30 tabs 12/23/24 12/27/24 Rx New Prescriptions to Start Prescriptions: Allergies Allergy/AdvReac Type Severity Reaction Status Date / Time No Known Allergies Allergy Verified 12/27/24 10:32 Exam Data for Last 24 hours Vital signs and Labs for Last 24 Hours: Pulse Resp BP Pulse Ox O2 Del Method 85 18 117/65 99 Room Air 12/27/24 10:54 12/27/24 10:54 12/27/24 10:54 12/27/24 10:54 12/27/24 10:54 I & O for Last 24 hours: Intake & Output 12/24/24 12/25/24 12/26/24 12/27/24 11:59 11:59 11:59 11:59 Weight 178 lb *Routine HEENT Exam Head: Present normocephalic Eye: Present EOMI ENT: Present mucous membranes moist *Routine Respiratory Exam Respiratory: Present CTA bilaterally *Routine Cardiovascular Exam Cardiovascular: Present RRR, Normal S1 and Normal S2 *Routine Abdominal Exam Abdominal: Present soft *Routine Rectal Exam Rectal:: deferred *Routine Genitalia Exam Genitalia:: deferred Assessment and Plan *Assessment and plan (1) Lumbar radiculopathy: Status: Acute Category: Medical Code(s): M54.16 - Radiculopathy, lumbar region (2) Degenerative disc disease: Status: Acute Qualifiers: Spinal region: lumbar Disc-related pain type: discogenic back pain and lower extremity pain Qualified Code(s): M51.362 - Other intervertebral disc degeneration, lumbar region with discogenic back pain and lower extremity pain Category: Medical (3) Facet arthropathy, cervical: Status: Acute Category: Medical Code(s): M47.812 - Spondylosis without myelopathy or radiculopathy, cervical region Plan Will follow-up with this patient in 2 weeks
--- NOTE | 2024-12-27 11:00 | EXP.PAIN.PRO ---
Procedure Date: 12/27/24 Time: 11:00 Anesthesiologist:: Hunter Sage MD Complications:: None Pre-procedure Diagnosis:: Degenerative disease of lumbar spine with lumbar radiculopathy symptoms Post-procedure Diagnosis:: Same Indications for Procedure:: This patient is a pleasant 44-year-old white female who presents with degenerative disease of lumbar spine with lumbar radiculopathy symptoms. She also has an intrathecal pain pump. She is doing well with her pain pump. We did interrogate her pump changes. Will do an interlaminar L4-L5 lumbar show steroid injection today for right leg radicular symptoms. She is also being evaluated by her spine surgeon for her neck fusion and additional surgery after reviewing her imaging. Procedure Details:: Informed consent was obtained and the risk and benefits of the procedure was explained to the patient. The patient was taken to the procedure room. The patient was placed prone on the procedure table. The patient was prepped and draped in sterile fashion. C-arm fluoroscopy was used to view the lumbar spine. Skin and subcutaneous tissues were anesthetized using lidocaine. I placed an 18-gauge epidural needle and advanced into the L4-L5 interspace using fluoroscopic guidance and [id number] to air. After confirmation of needle placement in the epidural space with dye I injected 2 mL of lidocaine 1.5% with dexamethasone 10 mg. Patient tolerated the procedure well with no complications. Plan and Disposition:: Will follow-up with this patient in 2 weeks. Will evaluate efficacy of this lumbar epidural steroid injection at that time. We did interrogate her pump we did not make any changes today.
== END 2024-12-27 10:54 | disposition home or self-care (01) ==
LOC: SC.PAINP 10:32
PROVIDERS: PCP Internal Medicine Adolescent Medicine; Visit Provider Anesthesiology
DX: M51.16 Intervertebral disc disorders with radiculopathy, lumbar region (principal); M47.26 Other spondylosis with radiculopathy, lumbar region; Z97.8 Presence of other specified devices; F33.9 Major depressive disorder, recurrent, unspecified; J45.909 Unspecified asthma, uncomplicated; G43.909 Migraine, unspecified, not intractable, without status migrainosus; Z79.890 Hormone replacement therapy; F17.210 Nicotine dependence, cigarettes, uncomplicated; Z79.899 Other long term (current) drug therapy
CPT/HCPCS: 62323; J1100; J2003

== ENCOUNTER 2024-12-30 13:23 | Outpatient (CLI) | payer OTHER, SELFPAY ==
--- NOTE | 2024-12-30 13:30 | MM_ITS ---
PROCEDURE INFORMATION: Exam: MG Bilateral Screening 3D Mammography Exam date and time: 12/30/2024 1:27 PM Age: 44 years old Clinical indication: Screening examination TECHNIQUE: Imaging protocol: Bilateral Screening tomosynthesis and 2D mammography including computer-aided detection (CAD) when performed. COMPARISON: 1. MG MM DIG SCREENING MAMM BI W/CAD 09/21/2023 10:11 AM 2. MG MM DIG SCREENING MAMM BI W/CAD 05/27/2022 7:56 AM FINDINGS: MAMMOGRAPHY: Breast composition: The breasts are heterogeneously dense, which may obscure small masses. Mass: None. Architectural distortion: None. Calcifications: No suspicious calcifications. Asymmetric density: None. Skin thickening: None. Axillary adenopathy: None. IMPRESSION: No mammographic evidence of malignancy. Annual screening is recommended unless otherwise clinically indicated. ASSESSMENT: BI-RADS Category 1: Negative.
== END 2024-12-30 23:59 | disposition home or self-care (01) ==
LOC: RAD 13:23
PROVIDERS: PCP Internal Medicine Adolescent Medicine; Visit Provider Nurse Practitioner Obstetrics & Gynecology
DX: Z12.31 Encounter for screening mammogram for malignant neoplasm of breast (principal); R92.333 Mammographic heterogeneous density, bilateral breasts
CPT/HCPCS: 77063; 77067

== ENCOUNTER 2025-01-16 13:05 | Outpatient (CLI) | payer OTHER, SELFPAY ==
--- OUTSIDE RECORDS SUMMARY | 2025-01-06 15:30 | XMS_ITS | Encounter Summary ---
Author Organization [facility] Address [address] [place] [address] Care Team Providers Care Spool Sander Name Role Phone Carlos Wolf MD Primary Care Provider [phone] Reason for Visit * Reason Comments Allergic Rhinitis Hives * Consultation (Routine) - Closed Specialty Diagnoses / Procedures Referred By Contac t Referred To Contact Allergy and Immunology / Allergy Diagnoses Urticaria, unspecified Rosacea Allergic dermatitis Allergy to pollen [place] [address] [place] [address] [place] [address] Phone: tel: fax: [facility] [address] , [address] [place] [address] Phone: tel: fax: Referral ID Status Reason Start Date Expiration Date V isits Requested Visits Authorized [id number] Closed Specialty Services Required 11/13/2024 05/15/2026 1 1 Encounter Details Date Type Department Care Team ([facility] st Contact Info) Description 01/06/2025 3:30 PM EST Consult [facility] [address], [address] [place] [address] Janice Hamilton MD [address] [place] [address] Chronic rhinitis (Primary Dx); Smoker; [...] 3:23 PM EST documented in this encounter Miscellaneous Notes * [...] 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 Complaining of itchy eyes, runny nose. 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 Did complete IT x [...] ONCE DAILY THEREAFTER BY MOUTH fexofenadine-pseudoephedrine ER (Laura-[facility] Allergy & Congestion) 60-120 MG 12 hr [...] fluticasone 2 sprays per nostril daily. Hold laura D, famotidine for skin testing.Will discuss further [...] us Janice Hamilton MD IN CLINIC/BEDSIDE ORDERABLES Fi nal Result documented in this encounter Visit Diagnoses Diagnosis [...] documented as of this encounter Care Teams Spool Sander Relationship Specialty Start Date End Date Carlos Wolf MD [address] [place] [id number] PCP - General Internal Medicine 01/06/25 documented as of this encounter
--- OUTSIDE RECORDS SUMMARY | 2025-01-15 10:30 | XMS_ITS | Encounter Summary ---
Author Organization [facility] Address [address] [place] [address] Care Team Providers Care Toll Line Inspector Name Role Phone Carlos Wolf MD Primary Care Provider [phone] Reason for Visit * Reason Comments Allergy Testing Encounter Details Date Type Department Care Team ([facility] st Contact Info) Description 01/15/2025 10:30 AM EST Clinical Support Professional [facility] [address], [address] [place] [address] Emily Loaiza LPN [facility] ALLERGY IMMUNOLOGY CLINIC None Chronic [...] Index - - documented in this encounter Miscellaneous Notes * [...] documented as of this encounter Care Teams Toll Line Inspector Relationship Specialty Start Date End Date Carlos Wlof MD [address] [place] [address] PCP - General Internal Medicine 01/06/25 documented as of this encounter
--- NOTE | 2025-01-16 13:08 | MR_ITS ---
FINAL REPORT CLINICAL HISTORY: RADICULOPATHY/EVAL PRIOR FUSION STATUS neck pain going down to shoulder blades down arms and fingers bilateral side no known injury COMPARISON: None FINDINGS: Multi planar MR imaging was obtained of the cervical spine. There has been prior anterior and interbody fusion at the C5-6 level. There is abnormal decreased signal throughout the cervical discs. The vertebrae are of normal height. There is no malalignment. The cervical cord demonstrates normal signal and configuration. C2-C3: There is no evidence of significant disc bulge or protrusion. There is no significant facet hypertrophy. C3-C4: There is no evidence of significant disc bulge or protrusion. There is no significant facet hypertrophy. C4-C5: A mild annular bulge is present with mild bilateral neural foraminal narrowing. There is no evidence of significant disc bulge or protrusion. There is no significant facet hypertrophy. C5-C6: This level has been fused. There is no evidence of significant disc bulge or protrusion. There is no significant facet hypertrophy. C6-C7: An annular bulge is present. There is no evidence of significant disc bulge or protrusion. There is no significant facet hypertrophy. C7-T1: There is no evidence of significant disc bulge or protrusion. There is no significant facet hypertrophy. IMPRESSION: Prior anterior cervical fusion at the C5-6 level. Annular bulges are present at the C4-5 and C5-6 levels, with mild bilateral neural foraminal narrowing at the C4-5 level. Reviewed, Interpreted and Dictated by Harvinder Frias MD Transcribed by Beth Mancini Authenticated and [facility]
--- OUTSIDE RECORDS SUMMARY | 2025-01-16 13:08 | XMS_ITS | Encounter Summary ---
Author Organization [facility] Address [address] [place] [address] Care Team Providers Care Software Engineer Sales Name Role Phone Carlos Wolf MD Primary Care Provider [phone] Encounter Details Date Type Department Care Team (Late st Contact Info) Description 12/06/2024 [facility] [address] [place] [address] [place] [address] [place] [address] [place] [id number] Urticaria, unspecified (Primary Dx); Rosacea; Allergic eczema; Allergy to pollen Social History Tobacco Use Types Packs/Day Years Used Date Smoking Tobacco: Never Assessed Comments Unknown Sex and Gender Information Value Date Recorded Sex Assigned at Female 11/13/2024 2:35 PM EDT Legal Sex Female 5:59 PM EDT Gender Identity Female 11/13/2024 2:35 PM EDT Sexual Orientation Not on file documented as of this encounter Plan of Treatment Not on file documented as of this encounter Visit Diagnoses Diagnosis Urticaria, unspecified- Primary Rosacea Allergic eczema Contact dermatitis and other eczema, due to unspecified cause Allergy to pollen Allergic rhinitis due to pollen documented in this encounter Care Teams Software Engineer Sales Relationship Specialty Start Date End Date Carlos Wolf MD [address] [place] [address] PCP - General Internal Medicine 01/06/25 documented as of this encounter
--- OUTSIDE RECORDS SUMMARY | 2025-01-16 13:08 | XMS_ITS | Encounter Summary ---
Author Organization [facility] Address [address] [place] [address] Care Team Providers Care Vice President Of Product Marketing Name Role Phone Carlos Wolf MD Primary Care Provider [phone] Encounter Details Date Type Department Care Team (Latest Contact Info) Description 01/15/2025 Travel Social History Tobacco Use Types Packs/Day Years [...] documented as of this encounter Visit Diagnoses Not on filedocumented in this encounter Additional Health Concerns Assessment Noted Time A fall risk assessment has been complete d for the patient 01/15/2025 11:37 AM EST A Body Mass Index follow-up plan has been documented for the patient 01/15/2025 12:06 PM EST documented as of this encounter Care Teams Vice President Of Product Marketing Relationship Specialty Start Date End Date Carlos Wolf MD [address] [place] [id number] PCP - General Internal Medicine 01/06/25 documented as of this encounter
--- OUTSIDE RECORDS SUMMARY | 2025-01-16 13:08 | XMS_ITS | Encounter Summary ---
Author Organization [facility] Address [address] [place] [address] Care Team Providers Care Retail Field Representative Name Role Phone Carlos Wolf MD Primary Care Provider Encounter Details Date Type Department Care Team ([facility] Contact Info) Description 01/13/2025 Orders Only Professional [facility] [address], [address] [place] [address] Janice Hamilton MD [address] [place] [address] Social History Tobacco Use Types Packs/Day Years [...] Procedure Name Priority Date/Time Associated Diagnosis Comments PULMONARY FUNCTION TESTING Routine 01/06/2025 3:46 PM EST documented in this encounter Results * Pulmonary function testing (01/06/2025 3:46 PM EST) Anatomical Region Laterality Modality Other us Janice Hamilton MD PFT ORDERABLES Final Result documented in this encounter Visit Diagnoses Not on filedocumented in this encounter Additional Health Concerns Assessment Noted Time A Body Mass Index follow-up plan has been documented for the patient 01/06/2025 4:13 PM EST documented as of this encounter Care Teams Retail Field Representative Relationship Specialty Start Date End Date Carlos Wolf MD [address] [place] [id number] PCP - General Internal Medicine 01/06/25 documented as of this encounter
--- OUTSIDE RECORDS SUMMARY | 2025-01-16 13:08 | XMS_ITS | Encounter Summary ---
Author Organization [facility] Address [address] [place] [address] Care Team Providers Care Numerical Control Operator Name Role Phone Carlos Wolf MD Primary Care Provider [phone] Reason for Visit * Reason Onset Date Comments Med Refill 01/06/2025 Encounter Details Date Type Department Care Team (Late st Contact Info) Description 01/06/2025 Refill Professional [facility] [address] [place] [address] Lilly León Social History Tobacco Use Types Packs/Day Years [...] documented as of this encounter Care Teams Numerical Control Operator Relationship Specialty Start Date End Date Carlos Wolf MD [address] [place] [address] PCP - General Internal Medicine 01/06/25 documented as of this encounter
--- OUTSIDE RECORDS SUMMARY | 2025-01-16 13:08 | XMS_ITS | Clinical Summary ---
Author Organization [facility] Address [address] [place] [address] Phone Care Team Providers Care Lining Baster Name Role Phone Unavailable Primary Care Provider [...] Procedure Name Priority Date/Time Associated Diagnosis Comments DEVELOPING MACHINE OPERATOR CYTOLOGY REPORT Routine 10/29/2009 5 :37 AM EDT from Last 3 Months or Most Recently Relevant to Health Maintenance Results * DEVELOPING MACHINE OPERATOR CYTOLOGY REPORT (10/29/2009 5:37 AM EDT) Plastering Contractor Cytology Report PATIENT NAME:ANIKA GOODMAN Plastering Contractor Cytology Report Accession Number Collected Date/Time Received Date/Time [id number] 10/29/09 05:37 EDT 10/30/09 05:37 EDT GY [...] before definitive therapy. Processed using the ThinPrep Bootmaker Hand automated cytology screening device ([employer]). Band Instrument Maker: [id number] 11/11/2009 Completed by: MALIK Snell (Electronically signed by) 11/11/2009 [facility] Laboratory [facility] 10/29/2009 5:37 AM EDT us Bonnie Carlos PA-C PATHOLOGY ORDERABLES Final Resu lt [facility] [address] [place] [address] from Last 3 Months or Most Recently Relevant to Health Maintenance Insurance [facility] farmhopping NO CONTRACT GENERIC WORKERS' COMP
--- OUTSIDE RECORDS SUMMARY | 2025-01-16 13:09 | XMS_ITS | Encounter Summary ---
Author Organization [facility] Address [address] [place] [id number] Care Team Providers Care Plate Cleaner Name Role Phone Carlos Wolf MD Primary Care Provider [phone] Encounter Details Date Type Department Care Team (Latest Contact Info) Description 01/06/2025 Travel Social History Tobacco Use Types Packs/Day [...] documented as of this encounter Care Teams Plate Cleaner Relationship Specialty Start Date End Date Carlos Wolf MD [address] [place] [address] PCP - General Internal Medicine 01/06/25 documented as of this encounter
--- OUTSIDE RECORDS SUMMARY | 2025-01-16 13:09 | XMS_ITS | Clinical Summary ---
Author Organization [facility] Address [address] [place] [address] Care Team Providers Care Engine Cleaner Name Role Phone Adam Manriquez MD Unavailable None, None Primary Care Provider Unavailabl e [...] (#1) 2024 Medical Devices Implanted Type Area Medical Secretary Teacher Device Identifier Shelf Expiration Date Model / Serial / Lot Scr Suki 4.2x12mm - [id number] Implanted:Qty : 4 on 07/03/2020 by Adam Manriquez MD at [facility] Screw Spine Cervical * DIAN [id number] / / Bone Cerv Allograft 6x8 - [id number] Implanted:Qty : 1 on 07/03/2020 by Adam Manriquez MD at [facility] Spine Cervical * LIFENET 12/25/2024 [id number] / [id number] / Plt Trinica Allyn 1 Lev 20mm - [id number] Implanted:Qty : 1 on 07/03/2020 by Adam Manriquez MD at [facility] Spine Cervical * DIAN [id number] / / Insurance WORKERS COMPENSATION SELF Care Teams Engine Cleaner Relationship Specialty Start Date End Date None, None [address] [place] [address] PCP - General 07/03/20 Adam Manriquez MD [address] [place], [place] [address] [place] [address] Orthopedic Surgery 06/25/20
--- OUTSIDE RECORDS SUMMARY | 2025-01-16 13:09 | XMS_ITS | Encounter Summary ---
Author Organization [facility] Address [address] [place] [address] Care Team Providers Care Diesel Power Shovel Operator Name Role Phone Carlos Wolf MD Primary Care Provider [phone] Encounter Details Date Type Department Care Team (Late st Contact Info) Description 11/25/2024 [facility] [address] [place] [address] [facility] [place] [address] [place] [address] [place] [id number] Generalized abdominal pain (Primary Dx); Nausea; Nausea and vomiting, unspecified vomiting type; Diarrhea, unspecified type Social History Tobacco Use Types Packs/Day Years [...] as of this encounter Visit Diagnoses Diagnosis Generalized abdominal pain- Primary Abdominal pain, generalized Nausea Nausea alone Nausea and vomiting, unspecified vomiting type Diarrhea, unspecified type documented in this encounter Care Teams Diesel Power Shovel Operator Relationship Specialty Start Date End Date Carlos Wolf MD [address] [place] [address] PCP - General Internal Medicine 01/06/25 documented as of this encounter
--- OUTSIDE RECORDS SUMMARY | 2025-01-16 13:09 | XMS_ITS | Encounter Summary ---
Author Organization [facility] Address [address] [place] [address] Care Team Providers Care Drophammer Operator Name Role Phone Carlos Wolf MD Primary Care Provider [phone] Reason for Referral * Consultation (Routine) - Closed Specialty Diagnoses / Procedures Referred By Kristine metz Referred To Contact Allergy and Immunology / Allergy Diagnoses Urticaria, unspecified Rosacea Allergic dermatitis Allergy to pollen Na Cristina PA [address] [place] [address] Phone: tel: fax: [facility] [address], [address] [place] [address] Phone: tel: fax: Referral ID Status Reason Start Date Expiration Date V isits Requested Visits Authorized [id number] Closed Specialty Services Required 11/13/2024 05/15/2026 1 1 Encounter Details Date Type Department Care Team (Late st Contact Info) Description 11/13/2024 Community [facility] Community [facility] [address] [place] [address] Na Cristina PA [address] [place] [address] Urticaria, unspecified (Primary Dx); Rosacea; Allergic dermatitis; Allergy to pollen Social History Tobacco Use Types Packs/Day Years Used Date Smoking Tobacco: Never Assessed Comments Unknown Sex and Gender Information Value Date Recorded Sex Assigned at Female 11/13/2024 2:35 PM EDT Legal Sex Female 5:59 PM EDT Gender Identity Female 11/13/2024 2:35 PM EDT Sexual Orientation Not on file documented as of this encounter Plan of Treatment Scheduled Referrals Name Type Priority Associated Diagnoses Order Schedule Ambulatory Referral to Allergy and Immunology Outpatient Referral Routine Urticaria, unspecified Rosacea Allergic dermatitis Allergy to pollen Expected: 11/13/2024 (Approximate), Expires: 05/17/2026 documented as of this encounter Visit Diagnoses Diagnosis Urticaria, unspecified- Primary Rosacea Allergic dermatitis Contact dermatitis and other eczema, due to unspecified cause Allergy to pollen Allergic rhinitis due to pollen documented in this encounter Care Teams Drophammer Operator Relationship Specialty Start Date End Date Carlos Wolf MD [address] [place] [address] PCP - General Internal Medicine 01/06/25 documented as of this encounter
--- OUTSIDE RECORDS SUMMARY | 2025-01-16 13:09 | XMS_ITS | Clinical Summary ---
Author Organization [facility] Address [address] [place] [address] Care Team Providers Care Public Health Informatician Name Role Phone Carlos Wolf MD Primary Care Provider [phone] Allergies No known active allergies Medications valACYclovir (Valtrex) 1 g tablet 5 Active triamcinolone (Kenalog) 0.1 % cream APPLY CREAM EXTERNALLY TWICE DAILY 5 Active spironolactone (Aldactone) 100 MG tablet 5 Active omeprazole (PriLOSEC) [address] capsule Take 1 capsule by mouth daily. 5 Active mometasone (Elocon) 0.1 % ointment APPLY OINTMENT TOPICALLY TO AFFECTED AREA ONCE DAILY 5 Active fexofenadine-ps eudoephedrine ER (Mimi-D Allergy & Congestion) 60-120 MG 12 hr tablet 5 Active famotidine (Pepcid) 20 MG tablet TAKE 1 TABLET BY MOUTH TWICE DAILY FOR ONE WEEK THEN TAKE ONCE DAILY THEREAFTER BY MOUTH 5 Active clobetasol (Temovate) 0.05 % external solution 5 Active buPROPion XL (Wellbutrin XL) 300 MG 24 hr tablet 5 Active baclofen (Lioresal) 10 MG tablet 5 Active fluticasone (Flonase) 50 MCG/ACT nasal spray Administer 1 spray into each nostril daily. Shake gently. Before first use, prime pump. After use, clean tip and replace cap. Active cetirizine (ZyrTEC) 10 MG tablet Take 1 tablet by mouth daily. Active montelukast (Singulair) 10 MG tablet Take 1 tablet by mouth nightly. 90 tablet 1 Active montelukast (Singulair) 10 MG tablet Take 1 tablet by mouth nightly. 30 tablet 5 5 01/07/20 26 Active Active Problems Problem Noted Date Diagnosed Date Chronic rhinitis 01/06/2025 Smoker 01/06/2025 Dermatitis, unspecified 01/06/2025 Neck pain after neck surgery 01/06/2025 Gastro-esophageal reflux disease without esophag itis 01/06/2025 Allergic conjunctivitis of both eyes 01/06/2025 Encounters Date Type Department Care Team Description 01/15/2025 10:30 AM EST Clinical Support [facility] [address], [address] [place] [address] Emily Loaiza LPN Chronic rhinitis (Primary Dx) 01/15/2025 Travel 01/13/2025 Orders Only [facility] [address], [address] [place] [address] Janice Hamilton MD 01/06/2025 3:30 PM EST Consult [facility] [address], [address] [place] [address] Janice Hamilton MD Chronic rhinitis (Primary Dx); Smoker; Dermatitis, unspecified; Neck pain after neck surgery; Gastro-esophageal reflux disease without esophagitis; Allergic conjunctivitis of both eyes 01/06/2025 Refill [facility] [address], [address] [place] [address] Lilly León 01/06/2025 Travel 12/06/2024 Community [facility] [address] [place] [address] Cristina Na, PA Urticaria, unspecified (Primary Dx); Rosacea; Allergic eczema; Allergy to pollen 11/25/2024 [facility] [address] [place] [address] Cristina Na, PA Generalized abdominal pain (Primary Dx); Nausea; Nausea and vomiting, unspecified vomiting type; Diarrhea, unspecified type 11/13/2024 Community Orders [facility] [address] [place] [address] Na Cristina PA Urticaria, unspecified (Primary Dx); Rosacea; Allergic dermatitis; Allergy to pollen from Last 3 Months Social History Tobacco Use Types Packs/Day Years [...] PM EDT Sexual Orientation Not on file Last Filed Vital Signs Vital Sign Reading Time Taken Comments Blood Pressure 112/80 01/15/2025 10:57 AM EST Pulse 80 01/15/2025 10:57 AM EST Temperature 36.6 C (97.9 F) 01/06/2025 3:23 PM EST Respiratory Rate 20 01/15/2025 10:57 AM EST Oxygen Saturation - - Inhaled Oxygen Concentration - - Weight 80.7 kg (178 lb) 01/06/2025 3:23 PM EST Height 171.5 cm (5' 7.5 ) 01/06/2025 3:23 PM EST Body Mass Index 27.47 01/06/2025 3:23 PM EST Plan of Treatment Health Maintenance Due Date Last Done Comments [facility]-Depression Screening 1982 [facility]-Hepatitis C Screening 1982 [facility]-Infant/Child/Adol SDOH Screenings 1982 [facility]-Varicella Vaccines (1 of 2 - 13+ 2-dose series) 1995 [facility]- SDOH Screenings 2000 [facility]-Adult SDOH Screenings 2000 [facility]-DTaP,Tdap,and Td Vaccines (1 - Tdap) 2001 [facility]-Hepatitis B Vaccines (1 of 3 - 19+ 3-dose series) 2001 [facility]-Pneumococcal Vaccine: Pediatrics (0 to 5 Years) and At-Risk Patients (6 to 49 Years) (1 of 2 - PCV) 2001 HPV Vaccines (1 - 3-dose SCDM series) 2009 KEV-KATKA-91 Vaccine ( season) 2024 [facility]-Influenza Vaccine (#1) 2024 [facility]-Zoster Vaccines (1 of 2) 2032 [facility]-HIV Screening Completed 07/09/2010 [facility]-Cervical Cancer Screening Discontinued [facility]-Pap Smear Discontinued 07/29/2010, 10/29/2009 [facility]-Hepatitis A Vaccines Aged Out 019, 09/14/2017 No longer eligible based on patient's age to complete this topic [facility]-Obesity Intervention Completed 025, 01/06/2025 [facility]-HIB Vaccines Aged Out No longer e ligible based on patient's age to complete this topic [facility]-HPV/Cotest Discontinued [facility]-IPV Vaccines Aged Out No longer e ligible based on patient's age to complete this topic [facility]-Rotavirus Vaccines Aged Out No lo nger eligible based on patient's age to complete this topic Procedures Procedure Name Priority Date/Time Associated Diagnosis Comments PANEL C ALLERGY TESTING Routine 01/15/2025 Chronic rhinitis PULMONARY FUNCTION TESTING Routine 01/06/2025 3:46 PM EST from Last 3 Months Results * Panel C Allergy Testing (01/15/2025) Skin panel 01/15/2025 us Janice Hamilton MD IN CLINIC/BEDSIDE ORDERABLES Fi nal Result * Pulmonary function testing (01/06/2025 3:46 PM EST) Anatomical Region Laterality Modality Other us Janice Hamilton MD PFT ORDERABLES Final Result from Last 3 Months Insurance [facility] [facility] MEDICAID Care Teams Public Health Informatician Relationship Specialty Start Date End Date Carlos Wolf MD [address] [place] [address] PCP - General Internal Medicine 01/06/25
--- OUTSIDE RECORDS SUMMARY | 2025-01-16 13:09 | XMS_ITS | Encounter Summary ---
Author Organization [facility] Address [address] [place] [address] Care Team Providers Care Belt Dresser Name Role Phone Carlos Wolf MD Primary Care Provider [phone] Encounter Details Date Type Department Care Team (Late st Contact Info) Description 01/19/2023 [facility] [address] [place] [address] Brionna Simental MD [address] [place] [address] Obstructive sleep apnea (adult) (pediatric) (Primary Dx) Social History Tobacco Use Types [...] as of this encounter Visit Diagnoses Diagnosis Obstructive sleep apnea (adult) (pediatric)- Primary documented in this encounter Care Teams Belt Dresser Relationship Specialty Start Date End Date Carlos Wolf MD [address] [place] [address] PCP - General Internal Medicine 01/06/25 documented as of this encounter
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
--- NOTE | 2025-01-16 13:10 | XR_ITS ---
FINAL REPORT CLINICAL HISTORY: eval of pain pump for mri clearance FINDINGS: Upright views of the abdomen were obtained to determine pain pump placement for MRI clearance. The pump is located 157 degrees relative to the Z-axis. IMPRESSION: Pump in appropriate position for MRI clearance. Reviewed, Interpreted and Dictated by Harvinder Frias MD Transcribed by Naida Avila Authenticated and [facility]
--- NOTE | 2025-01-16 14:25 | CT_ITS ---
FINAL REPORT TECHNIQUE: Axial images were obtained of the cervical spine by computed tomography. Coronal and sagittal reconstruction process performed. This study was performed with techniques to keep radiation doses as low as reasonably achievable (ALARA). Individualized dose reduction techniques using automated exposure control or adjustment of mA and/or kV according to the patient''s size were employed. CLINICAL HISTORY: RADICULOPATHY/EVAL PRIOR FUSION STATUS COMPARISON: MRI cervical spine 01/16/2025 FINDINGS: CT CERVICAL SPINE: Cervical vertebrae show normal height. There has been a prior anterior interbody fusion at the C5-6 level. The inferior endplate of C5 and the superior bone graft appear fused. There is a lucency between the bony articular surface of the C6 superior endplate and the inferior aspect of the bone graft suggesting an incomplete union. Disc spaces are otherwise well-preserved. There is no malalignment. The facets are properly aligned. IMPRESSION: Lucency between the bony articular surface of the C6 superior endplate and the inferior aspect of the bone graft, suggesting an incomplete union. There is no malalignment and the remainder of the cervical spine appears unremarkable. Reviewed, Interpreted and Dictated by Harvinder Frias MD Transcribed by Beth Mancini Authenticated and [facility]
== END 2025-01-16 23:59 | disposition home or self-care (01) ==
LOC: RAD 13:05
PROVIDERS: PCP Internal Medicine Adolescent Medicine; Visit Provider Orthopaedic Surgery Orthopaedic Surgery of the Spine
DX: M50.121 Cervical disc disorder at C4-C5 level with radiculopathy (principal); M50.122 Cervical disc disorder at C5-C6 level with radiculopathy; M99.71 Connective tissue and disc stenosis of intervertebral foramina of cervical region; R93.7 Abnormal findings on diagnostic imaging of other parts of musculoskeletal system; Z96.89 Presence of other specified functional implants; Z98.1 Arthrodesis status
CPT/HCPCS: 72125; 72141; 74019

== ENCOUNTER 2025-02-10 10:39 | Outpatient (CLI) | payer OTHER, SELFPAY ==
--- OUTSIDE RECORDS SUMMARY | 2025-01-06 15:30 | XMS_ITS | Encounter Summary ---
Author Organization [facility] Address [address] [place] [address] Care Team Providers Care Director Of Business Applications Name Role Phone Carlos Wolf MD Primary Care Provider [phone] Reason for Visit * Reason Comments Allergic Rhinitis Hives * Consultation (Routine) - Closed Specialty Diagnoses / Procedures Referred By Contac t Referred To Contact Allergy and Immunology / Allergy Diagnoses Urticaria, unspecified Rosacea Allergic dermatitis Allergy to [place] [address] [place] [id number] Phone: tel: fax: [facility] [employer] [facility] [address], [address] [place] [address] Phone: tel: fax: Referral ID Status Reason Start Date Expiration Date V isits Requested Visits Authorized [id number] Closed Specialty Services Required 11/13/2024 05/15/2026 1 1 Encounter Details Date Type Department Care Team ([facility] st Contact Info) Description 01/06/2025 3:30 PM EST Consult [facility] [employer] [facility] [address], [address] [place] [address] Janice Hamilton MD [address] [place] [address] Chronic rhinitis (Primary Dx); Smoker; Dermatitis, unspecified; Neck pain after neck surgery; Gastro-esophageal reflux disease without esophagitis; Allergic conjunctivitis of both eyes Social History Tobacco Use Types Packs/Day Years Used Date Smoking Tobacco: Every Day Cigarettes 1 26 Alcohol Use Standard Drinks/Week Comments Yes 0 (1 standard drink = 0.6 oz pur e alcohol) occasionally Comments Unknown Sex and Gender Information Value Date Recorded Sex Assigned at Female 11/13/2024 2:35 PM EDT Legal Sex Female 5:59 PM EDT Gender Identity Female 11/13/2024 2:35 PM EDT Sexual Orientation Not on file documented as of this encounter Last Filed Vital Signs Vital Sign Reading Time Taken Comments Blood Pressure 109/76 01/06/2025 3:23 PM EST Pulse 78 01/06/2025 3:23 PM EST Temperature 36.6 C (97.9 F) 01/06/2025 3:23 PM EST Respiratory Rate - - Oxygen Saturation - - Inhaled Oxygen Concentration - - Weight 80.7 kg (178 lb) 01/06/2025 3:23 PM EST Height 171.5 cm (5' 7.5 ) 01/06/2025 3:23 PM EST Body Mass Index 27.47 01/06/2025 3:23 PM EST documented in this encounter Functional Status * BP Answer Date of Assessment Author 109/76 01/06/2025 3:23 PM EST India León T * Temp Answer Date of Assessment Author 97.9 01/06/2025 3:23 PM EST India León * Temp src Answer Date of Assessment Author Temporal 01/06/2025 3:23 PM EST India León T * Pulse Answer Date of Assessment Author 78 01/06/2025 3:23 PM EST India León T * Height Answer Date of Assessment Author 67.5 01/06/2025 3:23 PM EST India León T * Weight Answer Date of Assessment Author 2848 01/06/2025 3:23 PM EST India León T * BMI (Calculated) Answer Date of Assessment Author 27.5 01/06/2025 3:23 PM India Dawson * Percent Excess Weight Loss Answer Date of Assessment Author 0 01/06/2025 3:23 PM India Dawson * Total Weight Change Percent Answer Date of Assessment Author 222101/06/2025 3:23 PM India Dawson T * Weight Change Since Preop Answer Date of Assessment Author 80.72 01/06/2025 3:23 PM EST León, Le slie T * Initial Excess Weight Answer Date of Assessment Author -62.37 01/06/2025 3:23 PM EST León, Le slie T * IBW in lbs (Bariatric) Answer Date of Assessment Author 137.5 01/06/2025 3:23 PM EST León, Le slie T * Weight Change Since Last Visit Answer Date of Assessment Author 80.72 01/06/2025 3:23 PM EST León, Le slie T * IBW in kg (Bariatric) Answer Date of Assessment Author 62.37 01/06/2025 3:23 PM EST León, Le slie T * Percent of IBW Answer Date of Assessment Author 4,566.3 01/06/2025 3:23 PM EST León, Le slie T * EBW (kg) Answer Date of Assessment Author 2,846.23 01/06/2025 3:23 PM EST León, Le slie T * EBW (lbs) Answer Date of Assessment Author 2,839.41 01/06/2025 3:23 PM EST León, Le slie T * Weight Change 24 hrs Answer Date of Assessment Author 80.74 01/06/2025 3:23 PM EST León, Le slie T * BSA (Calculated - sq m) Answer Date of Assessment Author 1.96 01/06/2025 3:23 PM EST León, Le slie T * BMI (Calculated) Answer Date of Assessment Author 27.45 01/06/2025 3:23 PM EST León, Le slie T * BP Location Answer Date of Assessment Author Left arm 01/06/2025 3:23 PM EST León, Le slie T * IBW/kg (Calculated) Male Answer Date of Assessment Author 67.25 01/06/2025 3:23 PM EST León, Le slie T * IBW/kg (Calculated) Female Answer Date of Assessment Author 62.75 01/06/2025 3:23 PM EST León, Le slie T * IBW/kg (Calculated) Answer Date of Assessment Author 62.75 01/06/2025 3:23 PM EST León, Le slie T * Weight in (lb) to have BMI = 25 Answer Date of Assessment Author 161.7 01/06/2025 3:23 PM EST León, Le slie T * BMI (Calculated) Answer Date of Assessment Author 27.5 01/06/2025 3:23 PM EST León, Le slie T * Percent Excess Weight Loss Answer Date of Assessment Author 0 01/06/2025 3:23 PM EST León, Le slie T * Weight Change Since Preop Answer Date of Assessment Author 80.74 01/06/2025 3:23 PM EST León, Le slie T * Initial Excess Weight Answer Date of Assessment Author -62.37 01/06/2025 3:23 PM EST León, Le slie T * IBW in kg (Bariatric) Answer Date of Assessment Author 62.37 01/06/2025 3:23 PM EST León, Le slie T * IBW in lb (Bariatric) Answer Date of Assessment Author 137.5 01/06/2025 3:23 PM EST León, Le slie T * Weight Change Since Last Visit Answer Date of Assessment Author 80.74 01/06/2025 3:23 PM EST León, Le slie T * Percent of IBW Answer Date of Assessment Author 129.45 01/06/2025 3:23 PM EST León, Le slie T * EBW (kg) Answer Date of Assessment Author 18.35 01/06/2025 3:23 PM EST León, Le slie T * EBW (lb) Answer Date of Assessment Author 40.5 01/06/2025 3:23 PM EST León, Le slie T * Difference in Weight Since Last Visit Answer Date of Assessment Author 80.74 01/06/2025 3:23 PM EST León, Le slie T * Temp (in Celsius) for LAC VIEUX IV Answer Date of Assessment Author 36.6 01/06/2025 3:23 PM EST León, Le slie T * IBW/kg (Calculated) Answer Date of Assessment Author 62.75 01/06/2025 3:23 PM EST León, Le slie T * Adult Low Range Vt 6mL/kg Answer Date of Assessment Author 376.5 01/06/2025 3:23 PM EST León, Le slie T * Adult Moderate Range Vt 8mL/kg Answer Date of Assessment Author 502 01/06/2025 3:23 PM EST León, Le pawanie T * Adult High Range Vt 10mL/kg Answer Date of Assessment Author 627.5 01/06/2025 3:23 PM EST León, Le slie T * Pain Score Answer Date of Assessment Author 0 01/06/2025 3:23 PM EST León, Le slie T * Patient Position Answer Date of Assessment Author Sitting 01/06/2025 3:23 PM EST León, Le slie T * Pain Screening/Additional Assessments Question Answer Date of Assessment Author Pain Screening/Assessments Pain Screening 01/06/2025 3 :23 PM EST Mau, Lilly T * Pain Screening Answer Date of Assessment Author 0-10 01/06/2025 3:23 PM EST Mau, Le slie T * BP Answer Date of Assessment Author 109/76 01/06/2025 3:23 PM EST Mau, Le slie T * Temp Answer Date of Assessment Author 97.9 01/06/2025 3:23 PM EST Mau, Le pawanie T * Temp src Answer Date of Assessment Author Temporal 01/06/2025 3:23 PM EST Mau, Le slie T * Pulse Answer Date of Assessment Author 78 01/06/2025 3:23 PM EST León, Le slie T * Height Answer Date of Assessment Author 67.5 01/06/2025 3:23 PM EST León, Le slie T * Weight Answer Date of Assessment Author 2848 01/06/2025 3:23 PM EST León, Le slie T * BSA (Calculated - sq m) Answer Date of Assessment Author 1.96 01/06/2025 3:23 PM EST León, Le slie T * BMI (Calculated) Answer Date of Assessment Author 27.45 01/06/2025 3:23 PM EST León, Le slie T * BP Location Answer Date of Assessment Author Left arm 01/06/2025 3:23 PM EST León, Le slie T * Weight in (lb) to have BMI = 25 Answer Date of Assessment Author 161.7 01/06/2025 3:23 PM EST León, Le slie T * Pain Score Answer Date of Assessment Author 0 01/06/2025 3:23 PM EST León, Le slie T * Patient Position Answer Date of Assessment Author Sitting 01/06/2025 3:23 PM EST India León * Learning Needs Screening Question Answer Date of Assessment Author Are there things (barriers) that make it harder for this patient to learn? No Barriers 01/06/2025 3:23 PM EST Lilly León What is the best language to use for teaching this patient about his/her health? Faroese 01/06/2025 3:23 PM EST Lilly León What format does this patient think is most helpful for learning? Listening;Reading;Demon stration;Pictures/Video 01/06/2025 3:23 PM EST Lilly León Primary Learner Patient 01/06/2025 3:23 PM EST Lilly Torre * Readiness to Learn Question Answer Date of Assessment Author Readiness Eager 01/06/2025 3:23 PM EST Lilly León documented as of this encounter Mental Status * BP Answer Entry Date Author 109/76 01/06/2025 3:23 PM EST India León * Temp Answer Entry Date Author 97.9 01/06/2025 3:23 PM EST India León * Temp src Answer Entry Date Author Temporal 01/06/2025 3:23 PM EST India León * Pulse Answer Entry Date Author 78 01/06/2025 3:23 PM India Dawson T * Height Answer Entry Date Author 67.5 01/06/2025 3:23 PM EST India León T * Weight Answer Entry Date Author 284701/06/2025 3:23 PM India Dawson T * BMI (Calculated) Answer Entry Date Author 27.5 01/06/2025 3:23 PM EST India León T * Percent Excess Weight Loss Answer Entry Date Author 0 01/06/2025 3:23 PM India Dawson * Total Weight Change Percent Answer Entry Date Author 222101/06/2025 3:23 PM India Dawson * Weight Change Since Preop Answer Entry Date Author 80.72 01/06/2025 3:23 PM India Dawson T * Initial Excess Weight Answer Entry Date Author -62.37 01/06/2025 3:23 PM EST León, Le slie T * IBW in lbs (Bariatric) Answer Entry Date Author 137.5 01/06/2025 3:23 PM EST León, Le slie T * Weight Change Since Last Visit Answer Entry Date Author 80.72 01/06/2025 3:23 PM EST León, Le slie T * IBW in kg (Bariatric) Answer Entry Date Author 62.37 01/06/2025 3:23 PM EST León, Le slie T * Percent of IBW Answer Entry Date Author 4,566.3 01/06/2025 3:23 PM EST León, Le slie T * EBW (kg) Answer Entry Date Author 2,846.23 01/06/2025 3:23 PM EST León, Le slie T * EBW (lbs) Answer Entry Date Author 2,839.41 01/06/2025 3:23 PM EST León, Le slie T * Weight Change 24 hrs Answer Entry Date Author 80.74 01/06/2025 3:23 PM EST León, Le slie T * BSA (Calculated - sq m) Answer Entry Date Author 1.96 01/06/2025 3:23 PM EST León, Le slie T * BMI (Calculated) Answer Entry Date Author 27.45 01/06/2025 3:23 PM EST León, Le slie T * BP Location Answer Entry Date Author Left arm 01/06/2025 3:23 PM EST León, Le slie T * IBW/kg (Calculated) Male Answer Entry Date Author 67.25 01/06/2025 3:23 PM EST León, Le slie T * IBW/kg (Calculated) Female Answer Entry Date Author 62.75 01/06/2025 3:23 PM EST León, Le slie T * IBW/kg (Calculated) Answer Entry Date Author 62.75 01/06/2025 3:23 PM EST León, Le slie T * Restart Pain Assessment Timer Answer Entry Date Author Yes 01/06/2025 3:23 PM EST León, Le slie T * Weight in (lb) to have BMI = 25 Answer Entry Date Author 161.7 01/06/2025 3:23 PM EST León, Le slie T * BMI (Calculated) Answer Entry Date Author 27.5 01/06/2025 3:23 PM EST León, Le slie T * Percent Excess Weight Loss Answer Entry Date Author 0 01/06/2025 3:23 PM EST León, Le slie T * Weight Change Since Preop Answer Entry Date Author 80.74 01/06/2025 3:23 PM EST León, Le slie T * Initial Excess Weight Answer Entry Date Author -62.37 01/06/2025 3:23 PM EST León, Le slie T * IBW in kg (Bariatric) Answer Entry Date Author 62.37 01/06/2025 3:23 PM EST León, Le slie T * IBW in lb (Bariatric) Answer Entry Date Author 137.5 01/06/2025 3:23 PM EST León, Le slie T * Weight Change Since Last Visit Answer Entry Date Author 80.74 01/06/2025 3:23 PM EST León, Le slie T * Percent of IBW Answer Entry Date Author 129.45 01/06/2025 3:23 PM EST León, Le slie T * EBW (kg) Answer Entry Date Author 18.35 01/06/2025 3:23 PM EST León, Le slie T * EBW (lb) Answer Entry Date Author 40.5 01/06/2025 3:23 PM EST León, Le slie T * Difference in Weight Since Last Visit Answer Entry Date Author 80.74 01/06/2025 3:23 PM EST León, Le slie T * Temp (in Celsius) for LAC VIEUX IV Answer Entry Date Author 36.6 01/06/2025 3:23 PM EST León, Le slie T * IBW/kg (Calculated) Answer Entry Date Author 62.75 01/06/2025 3:23 PM EST Lóen, Le slie T * Adult Low Range Vt 6mL/kg Answer Entry Date Author 376.5 01/06/2025 3:23 PM EST León, Le slie T * Adult Moderate Range Vt 8mL/kg Answer Entry Date Author 502 01/06/2025 3:23 PM EST León, Le slie T * Adult High Range Vt 10mL/kg Answer Entry Date Author 627.5 01/06/2025 3:23 PM EST León, Le slie T * Pain Score Answer Entry Date Author 0 01/06/2025 3:23 PM EST India León T * BP Cuff Size Answer Entry Date Author Adult 01/06/2025 3:23 PM EST India León T * Patient Position Answer Entry Date Author Sitting 01/06/2025 3:23 PM EST India León T * Pain Screening Answer Entry Date Author 0-10 01/06/2025 3:23 PM India Dawson documented in this encounter Miscellaneous Notes * Progress Notes - Janice Hamilton MD - 01/06/2025 3:30 PM EST Anika Goodman presents today for consultation as requested by Na Cristina PA regarding assessment of Chief Complaint Patient presents with Allergic Rhinitis Hives Chart Reviewed. Subjective History of Presenting Problem: Hives Anika Caraballo a 44 y.o. female who presents with Allergic Rhinitis and Hives Patient here for evaluation. 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 Saw pediatric speech therapist in [place]. Complaining of itchy eyes, runny nose. 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 Did complete IT x 1 yr. Shots were helpful. She is a smoker, 1 ppd x 26 yrs. On PPI and famotidine for GERD. Has cervical neck surgery, failed. To have repair. Has chronic pain, has a pain pump for morphine. Needs to stop smoking to have her surgery. Also patient complaining of a rash, looks consistent with folliculitis, or dermatitis. Now resolvedafter steroids. Patient had a picture looks like folliculitis or dermatitis, not urticaria. . Unsure of allergies in Fhx. Review of Systems: Review of Systems All other systems reviewed and are negative. Medications: All medications have been reviewed and updated today. Current Outpatient Medications: Current Outpatient Medications Medication Instructions baclofen (Lioresal) 10 MG tablet buPROPion XL (Wellbutrin XL) 300 MG 24 hr tablet cetirizine (ZYRTEC) 10 mg, Daily clobetasol (Temovate) 0.05 % external solution famotidine (Pepcid) 20 MG tablet TAKE 1 TABLET BY MOUTH TWICE DAILY FOR ONE WEEK THEN TAKE ONCE DAILY THEREAFTER BY MOUTH fexofenadine-pseudoephedrine ER (Mimi-D Allergy [facility] Congestion) 60-120 MG 12 hr tablet fluticasone (Flonase) 50 MCG/ACT nasal spray 1 spray, Daily mometasone (Elocon) 0.1 % ointment APPLY OINTMENT TOPICALLY TO AFFECTED AREA ONCE DAILY montelukast (SINGULAIR) 10 mg, Oral, Nightly omeprazole (PRILOSEC) 20 mg, Daily spironolactone (Aldactone) 100 MG tablet triamcinolone (Kenalog) 0.1 % cream APPLY CREAM EXTERNALLY TWICE DAILY valACYclovir (Valtrex) 1 g tablet Allergies: Allergies[1] Surgical History: Surgical History[2] Past Medical History: Past Medical History[3] Family History: Family History[4] Past Social History: Social History Social History Narrative Not on file Objective Vitals: Vitals: 01/06/25 1523 BP: 109/76 BP Location: Left arm Patient Position: Sitting BP Cuff Size: Adult Pulse: 78 Temp: 36.6 ??C (97.9 ??F) TempSrc: Temporal Weight: 80.7 kg (178 lb) Height: 1.715 m (5' 7.5 ) Physical Exam: Physical Exam Vitals reviewed. Constitutional: Appearance: Normal appearance. HENT: Head: Normocephalic and atraumatic. Right Ear: Tympanic membrane, ear canal and external ear normal. Left Ear: Tympanic membrane, ear canal and external ear normal. Nose: Nose normal. Mouth/Throat: Mouth: Mucous membranes are moist. Cardiovascular: Rate and Rhythm: Normal rate and regular rhythm. Heart sounds: Normal heart sounds. Pulmonary: Effort: Pulmonary effort is normal. Breath sounds: Normal breath sounds. Skin: General: Skin is warm. Neurological: General: No focal deficit present. Mental Status: She is alert and oriented to person, place, and time. Mental status is at baseline. Psychiatric: Mood and Affect: Mood normal. Behavior: Behavior normal. Thought Content: Thought content normal. Judgment: Judgment normal. Spirometry: FEV 1 92% predicted. Assessment/Plan Diagnosis Plan 1. Chronic rhinitis Panel C Allergy Testing 2. Smoker 3. Dermatitis, unspecified 4. Neck pain after neck surgery 5. Gastro-esophageal reflux disease without esophagitis 6. Allergic conjunctivitis of both eyes Medical Decision Making/Plan: Suggest smoking cessation. To restart montelukast 10 mg 1 po at bedtime x 30 days, watch for mood swings. Continue fluticasone 2 sprays per nostril daily. Hold mimi D, famotidine for skin testing.Will discuss further treatment after testing, and after patient has her revision surgery. Time Spent: I personally spent a total of 40 minutes on this encounter. This time includes face to face with patient, counseling and discussion and/or coordination of care. Janice Hamilton MD [1] No Known Allergies [2] Past Surgical History: Procedure Laterality Date CERVICAL FUSION HYSTERECTOMY TONSILLECTOMY [3] No past medical history on file. [4] No family history on file. documented in this encounter Plan of Treatment Not on file documented as of this encounter Procedures Procedure Name Priority Date/Time Associated Diagnosis Comments PANEL C ALLERGY TESTING Routine 01/15/2025 Chronic rhinitis documented in this encounter Results * Panel C Allergy Testing (01/15/2025) Skin panel 01/15/2025 us Janice Hamilton MD IN CLINIC/BEDSIDE ORDERABLES Ed ited Result - Final documented in this encounter Visit Diagnoses Diagnosis Chronic rhinitis- Primary Smoker Tobacco use disorder Dermatitis, unspecified Neck pain after neck surgery Gastro-esophageal reflux disease without esophagitis Allergic conjunctivitis of both eyes Other chronic allergic conjunctivitis documented in this encounter Additional Health Concerns Assessment Noted Time A Body Mass Index follow-up plan has been documented for the patient 01/06/2025 4:13 PM EST documented as of this encounter Care Teams Director Of Business Applications Relationship Specialty Start Date End Date Carlos Wolf MD [facility] [address] [id number] PCP - General Internal Medicine 01/06/25 documented as of this encounter
--- OUTSIDE RECORDS SUMMARY | 2025-01-15 10:30 | XMS_ITS | Encounter Summary ---
Author Organization [facility] Address [address] [place] [address] Care Team Providers Care Foiling Machine Operator Name Role Phone Carlos Wolf MD Primary Care Provider [phone] Reason for Visit * Reason Comments Allergy Testing Encounter Details Date Type Department Care Team ([facility] st Contact Info) Description 01/15/2025 10:30 AM EST Clinical Support Professional [facility] [address], [address] [place] [address] Emily Loaiza LPN [facility] ALL[facility] IMMUNOLOGY CLINIC None Chronic rhinitis (Primary Dx) Social History Tobacco Use Types Packs/Day Years [...] Sign Reading Time Taken Comments Blood Pressure 112/80 01/15/2025 10:57 AM EST Pulse 80 01/15/2025 10:57 AM EST Temperature - - Respiratory Rate 20 01/15/2025 10:57 AM EST Oxygen Saturation - - Inhaled Oxygen Concentration - - Weight - - Height - - Body Mass Index - - documented in this encounter Functional Status * BP Answer Date of Assessment Author 112/80 01/15/2025 10:57 AM EST Emily Loaiza LPN * Pulse Answer Date of Assessment Author 80 01/15/2025 10:57 AM EST Emily Loaiza LPN * Resp Answer Date of Assessment Author 20 01/15/2025 10:57 AM Emily Boland LPN * Pain Score Answer Date of Assessment Author 7 01/15/2025 10:55 AM Emily Boland LPN * Pain Screening/Additional Assessments Question Answer Date of Assessment Author Pain Screening/Assessments Pain Screening 01/15/2025 10:55 AM Emily Boland LPN * Pain Screening Answer Date of Assessment Author 0-10 01/15/2025 10:55 AM Emily Boland LPN * BP Answer Date of Assessment Author 112/80 01/15/2025 10:57 AM Emily Boland LPN * Pulse Answer Date of Assessment Author 80 01/15/2025 10:57 AM Emily Boland LPN * Resp Answer Date of Assessment Author 20 01/15/2025 10:57 AM Emily Boland LPN * Pain Score Answer Date of Assessment Author 7 01/15/2025 10:55 AM Emily Boland LPN documented as of this encounter Mental Status * BP Answer Entry Date Author 112/80 01/15/2025 10:57 AM Emily Boland LPN * Pulse Answer Entry Date Author 80 01/15/2025 10:57 AM Emily Boland LPN * Resp Answer Entry Date Author 20 01/15/2025 10:57 AM Eimly Boland LPN * Restart Pain Assessment Timer Answer Entry Date Author Yes 01/15/2025 10:55 AM Emily Boland LPN * Pain Score Answer Entry Date Author 7 01/15/2025 10:55 AM Emily Boland LPN * Pain Screening Answer Entry Date Author 0-10 01/15/2025 10:55 AM Emily Boland LPN documented in this encounter Miscellaneous Notes * Progress Notes - Emily Loaiza LPN - 01/15/2025 10:30 AM EST Here for AST, tolerated well. Testing negative on pricks and Id's with good histamine controls. Shahab Hamilton can continue Singulair and Flonase daily, Mimi PRN. May need PCP to sent to ENT if symptoms continue. FU PRN. Cosigned by Janice Hamilton MD at 01/15/2025 12:10 PM EST Associated attestation - Janice Hamilton MD - 01/15/2025 12:10 PM EST I discussed the case with the resident/fellow and agree with the findings and plan as documented. documented in this encounter Plan of Treatment Not on file documented as of this encounter Visit Diagnoses Diagnosis Chronic rhinitis- Primary documented in this encounter Additional Health Concerns Assessment Noted Time A fall risk assessment has been complete d for the patient 01/15/2025 11:37 AM EST A Body Mass Index follow-up plan has been documented for the patient 01/15/2025 12:06 PM EST documented as of this encounter Care Teams Foiling Machine Operator Relationship Specialty Start Date End Date Carlos Wolf MD [facility] [id number] PCP - General Internal Medicine 01/06/25 documented as of this encounter
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
--- OUTSIDE RECORDS SUMMARY | 2025-02-10 10:50 | XMS_ITS | Encounter Summary ---
Author Organization Healthcare Address [address] [place] [address] Care Team Providers Care Loss Prevention Lead Name Role Phone Carlos Wolf MD Primary Care Provider [phone] Encounter Details Date Type Department Care Team (Late st Contact Info) Description 01/19/2023 [facility] [address] [place] [address] Brionna Simental MD Obstructive sleep apnea (adult) (pediatric) (Primary Dx) [...] Primary documented in this encounter Care Teams Loss Prevention Lead Relationship Specialty Start Date End Date Carlos Wolf MD [facility] [address] PCP - General Internal Medicine 01/06/25 documented as of this encounter
--- OUTSIDE RECORDS SUMMARY | 2025-02-10 10:50 | XMS_ITS | Encounter Summary ---
Author Organization [facility] Address [address] [place] [address] Care Team Providers Care Hand Packager Name Role Phone Carlos Wolf MD Primary Care Provider [phone] Reason for Referral * Consultation (Routine) - Closed Specialty Diagnoses / Procedures Referred By Kristine metz Referred To Contact Allergy and Immunology / Allergy Diagnoses Urticaria, unspecified Rosacea Allergic dermatitis Allergy to pollen Na Cristina PA [address] [place] [address] Phone: tel: fax: [facility] [address] [place] [address] Phone: tel: fax: Referral ID Status Reason Start Date Expiration Date V isits Requested Visits Authorized [id number] Closed Specialty Services Required 11/13/2024 05/15/2026 1 1 Encounter Details Date Type Department Care Team (Late st Contact Info) Description 11/13/2024 [facility] [address] [place] [address] Na Cristina PA [address] [place] [address] Urticaria, unspecified (Primary Dx); Rosacea; Allergic dermatitis; [...] pollen documented in this encounter Care Teams Hand Packager Relationship Specialty Start Date End Date Carlos Wolf MD [facility] [address] PCP - General Internal Medicine 01/06/25 documented as of this encounter
--- OUTSIDE RECORDS SUMMARY | 2025-02-10 10:50 | XMS_ITS | Encounter Summary ---
Author Organization [facility] Address [address] [place] [address] Care Team Providers Care Dean Of Men Name Role Phone Carlos Wolf MD Primary Care Provider [phone] Encounter Details Date Type Department Care Team ([facility] Contact Info) Description 01/13/2025 Orders Only [facility] [address], [address] [place] [address] Janice Hamilton MD [address] [place] [address] Social History Tobacco Use Types [...] documented as of this encounter Care Teams Dean Of Men Relationship Specialty Start Date End Date Carlos Wolf MD [facility] [address] PCP - General Internal Medicine 01/06/25 documented as of this encounter
--- OUTSIDE RECORDS SUMMARY | 2025-02-10 10:50 | XMS_ITS | Encounter Summary ---
Author Organization [facility] Address [address] [place] [address] Care Team Providers Care Cooking Casing And Drying Supervisor Name Role Phone Carlos Wolf MD Primary Care Provider [phone] Reason for Visit * Reason Onset Date Comments Med Refill 01/06/2025 Encounter Details Date Type Department Care Team (Late st Contact Info) Description 01/06/2025 Refill [facility] [address] [place] [address] Lilly León Social History Tobacco [...] documented as of this encounter Care Teams Cooking Casing And Drying Supervisor Relationship Specialty Start Date End Date Carlos Wolf MD [facility] [address] PCP - General Internal Medicine 01/06/25 documented as of this encounter
--- OUTSIDE RECORDS SUMMARY | 2025-02-10 10:50 | XMS_ITS | Encounter Summary ---
Author Organization Healthcare [facility] [address] [place] [address] Care Team Providers Care Drafter Chief Design Name Role Phone Carlos Wolf MD Primary Care Provider [phone] Encounter Details Date Type Department Care Team [...] on file documented as of this encounter Functional Status * Communicable Disease Screening Question Answer Date of Assessment Author Have you been in contact wit h someone who was sick? No / Unsure 01/15/2025 10:49 AM Indy Downing Do you have any of the following new or worsening symptoms? None of these 01/15/2025 10:49 AM Aracelis Downing * Travel Screening Question Answer Date of Assessment Author Have you traveled [place] or domestically in the last month? No 01/15/2025 10:49 AM Aracelis Kaplan documented as of this encounter Mental Status * Communicable Disease Screening Question Answer Entry Date Author Have you been in contact wit h someone who was sick? No / Unsure 01/15/2025 10:49 AM Indy Downing Do you have any of the following new or worsening symptoms? None of these 01/15/2025 10:49 AM Aracelis Downing * Travel Screening Question Answer Entry Date Author Have you traveled [place] or domestically in the last month? No 01/15/2025 10:49 AM EST Aracelis Guan documented in this encounter Plan of Treatment [...] documented as of this encounter Care Teams Drafter Chief Design Relationship Specialty Start Date End Date Carlos Wolf MD [facility] [id number] PCP - General Internal Medicine 01/06/25 documented as of this encounter
--- OUTSIDE RECORDS SUMMARY | 2025-02-10 10:50 | XMS_ITS | Encounter Summary ---
Author Organization Healthcare Address [address] [place] [address] Care Team Providers Care Imaging Center Manager Name Role Phone Carlos Wolf MD Primary Care Provider [phone] Encounter Details Date Type Department Care Team (Late st Contact Info) Description 12/06/2024 Community [facility] Community Practice [address] [place] [address] [place] [address] [place] [address] [place] [address] Urticaria, unspecified (Primary Dx); Rosacea; Allergic eczema; [...] pollen documented in this encounter Care Teams Imaging Center Manager Relationship Specialty Start Date End Date Carlos Wolf MD [address] [id number] PCP - General Internal Medicine 01/06/25 documented as of this encounter
--- OUTSIDE RECORDS SUMMARY | 2025-02-10 10:50 | XMS_ITS | Encounter Summary ---
Author Organization Healthcare Address [address] [place] [address] Care Team Providers Care Senior Office Support Assistant Sosa Name Role Phone Carlos Wolf MD Primary Care Provider [phone] Encounter Details Date Type Department Care Team [...] someone who was sick? No / Unsure 01/06/2025 3:15 PM EST Tyree Resendiz e Do you have any of the following new or worsening symptoms? None of these 01/06/2025 3:15 PM EST Yani Resendiz * Travel Screening Question Answer Date of Assessment Author Have you traveled [place] or domestically in the last month? No 01/06/2025 3:15 PM EST Yani Resendiz documented as of this encounter Mental Status * Communicable Disease Screening Question Answer Entry Date Author Have you been in contact wit h someone who was sick? No / Unsure 01/06/2025 3:15 PM EST Dregabo Lindajan e Do you have any of the following new or worsening symptoms? None of these 01/06/2025 3:15 PM EST Yani Resendiz * Travel Screening Question Answer Entry Date Author Have you traveled [place] or domestically in the last month? No 01/06/2025 3:15 PM EST Yani Resendiz documented in this encounter Plan of Treatment Not on file documented as of this encounter Visit Diagnoses Not on filedocumented in this encounter Additional Health Concerns Assessment Noted Time A Body Mass Index follow-up plan has been documented for the patient 01/06/2025 4:13 PM EST documented as of this encounter Care Teams Senior Office Support Assistant Sosa Relationship Specialty Start Date End Date Carlos Wolf MD [facility] [id number] PCP - General Internal Medicine 01/06/25 documented as of this encounter
--- OUTSIDE RECORDS SUMMARY | 2025-02-10 10:50 | XMS_ITS | Clinical Summary ---
Author Organization [facility] Address [address] [place] [address] Care Team Providers Care Pharmaceutical Botanist Name Role Phone Adam Manriquez MD Unavailable [phone] None, None Primary Care Provider Unavailabl e [...] (#1) 2024 Medical Devices Implanted Type Area Metal Rivet Machine Operator Device Identifier Shelf Expiration Date Model / Serial / Lot Scr Suki 4.2x12mm - [id number] Implanted:Qty : 4 on 07/03/2020 by Adam Manriquez MD at [facility] Screw Spine Cervical * DIAN [id number] / / Bone Cerv Allograft 6x8 - [id number] Implanted:Qty : 1 on 07/03/2020 by Adam Manriquez MD at [facility] Spine Cervical * LIFENET 12/25/2024 [id number] / [id number] / Plt Trinica Allyn 1 Lev 20mm - [id number] Implanted:Qty : 1 on 07/03/2020 by Adam Manriquez MD at [facility] Spine Cervical * DIAN [id number] / / Insurance WORKERS COMPENSATION SELF Care Teams Pharmaceutical Botanist Relationship Specialty Start Date End Date None, None [address] [place] [address] PCP - General 07/03/20 Adam Manriquez MD [address] [place], [place] [address] [place] [address] Orthopedic Surgery 06/25/20
--- OUTSIDE RECORDS SUMMARY | 2025-02-10 10:50 | XMS_ITS | Clinical Summary ---
Author Organization [facility] Address [address] [place] [address] Phone Care Team Providers Care Tetryl Boiling Tub Operator Name Role Phone Unavailable Primary Care Provider [...] Procedure Name Priority Date/Time Associated Diagnosis Comments FOOT ORTHOPEDIST CYTOLOGY REPORT Routine 10/29/2009 5 :37 AM EDT from Last 3 Months or Most Recently Relevant to Health Maintenance Results * FOOT ORTHOPEDIST CYTOLOGY REPORT (10/29/2009 5:37 AM EDT) Kiln Cleaner Cytology Report PATIENT NAME:ANIKA GOODMAN Kiln Cleaner Cytology Report Accession Number Collected Date/Time Received Date/Time [id number] 10/29/09 05:37 EDT 10/30/09 05:37 EDT GY [...] before definitive therapy. Processed using the ThinPrep [employer] automated cytology screening device (CallMiner). Trawl Net Maker: [id number] 11/11/2009 Completed by: MALIK Snell (Electronically signed by) 11/11/2009 [facility] 10/29/2009 5:37 AM EDT us Bonnie Carlos PA-C PATHOLOGY ORDERABLES Final Resu lt [facility] [address] [place] [address] from Last 3 Months or Most Recently Relevant to Health Maintenance Insurance [facility] [email or web address] NO CONTRACT GENERIC WORKERS' COMP
--- OUTSIDE RECORDS SUMMARY | 2025-02-10 10:50 | XMS_ITS | Encounter Summary ---
Author Organization Healthcare Address [address] [place] [address] Care Team Providers Care Print Shop Manager Name Role Phone Carlos Wolf MD Primary Care Provider [phone] Encounter Details Date Type Department Care Team (Late st Contact Info) Description 11/25/2024 Community [facility] Community Practice [address] [place] [address] [facility] [place] [address] [place] [address] [place] [address] Generalized abdominal pain (Primary Dx); Nausea; Nausea [...] type documented in this encounter Care Teams Print Shop Manager Relationship Specialty Start Date End Date Carlos Wolf MD [address] [id number] PCP - General Internal Medicine 01/06/25 documented as of this encounter
--- OUTSIDE RECORDS SUMMARY | 2025-02-10 10:50 | XMS_ITS | Clinical Summary ---
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 [address], [address] [place] [address] Emily Loaiza LPN Chronic rhinitis (Primary Dx) 01/15/2025 Travel 01/13/2025 Orders Only [facility] [address], [address] [place] [address] Janice Hamilton MD 01/06/2025 3:30 PM EST Consult [facility] [address], [address] [place] [address] Janice Hamilton MD Chronic rhinitis (Primary Dx); Smoker; Dermatitis, unspecified; Neck pain after neck surgery; Gastro-esophageal reflux disease without esophagitis; Allergic conjunctivitis of both eyes 01/06/2025 Refill [facility] [address], [address] [place] [address] Lilly León 01/06/2025 Travel 12/06/2024 Community Orders Community Practice [address] [place] [address] Cristina Na, [place] Urticaria, unspecified (Primary Dx); Rosacea; Allergic eczema; Allergy to pollen 11/25/2024 Community [facility] [address] [place] [address] Ibeth Na, [place] Generalized abdominal pain (Primary Dx); Nausea; Nausea and vomiting, unspecified vomiting type; Diarrhea, unspecified type 11/13/2024 Community Orders Community Practice [address] [place] [address] Na Cristina [place] Urticaria, unspecified (Primary Dx); [...] [facility]-Depression Screening 1982 [facility]-Hepatitis C Screening 1982 [facility]-/Child/Adol SDOH Screenings 1982 [facility]-Varicella Vaccines (1 of 2 - 13+ 2-dose series) 1995 [facility]- SDOH Screenings 2000 [facility]-Adult SDOH Screenings 2000 [facility]-DTaP,Tdap,and Td Vaccines (1 - Tdap) 2001 [facility]-Hepatitis B Vaccines (1 of 3 - 19+ 3-dose series) 2001 [facility]-Pneumococcal Vaccine: Pediatrics (0 to 5 Years) and At-Risk Patients (6 to 49 Years) (1 of 2 - PCV) 2001 [id number] Vaccine ( - season) 2024 [facility]-Influenza Vaccine (#1) 2024 [facility]-Zoster Vaccines (1 of 2) 2032 [facility]-HIV Screening Completed 07/09/2010 [facility]-Cervical Cancer Screening Discontinued [facility]-Pap Smear Discontinued 07/29/2010, 10/29/2009 [facility]-Hepatitis A Vaccines Aged Out 019, 09/14/2017 No longer eligible based on patient's age to complete this topic [facility]-Obesity Intervention Completed 025, 01/06/2025 HPV Vaccines (No Doses Required) Completed [facility]-HIB Vaccines Aged Out No longer e [...] CLINIC/BEDSIDE ORDERABLES Ed ited Result - Final * Pulmonary function testing (01/06/2025 3:46 PM EST) Anatomical Region Laterality Modality Other us Janice Hamliton MD PFT ORDERABLES Final Result from Last 3 Months Insurance [employer] [facility] MEDICAID Care Teams Sweatband Perforator Relationship Specialty Start Date End Date Carlos Wolf MD Replaced By [facility] [id number] PCP - General Internal Medicine 01/06/25
== END 2025-02-10 23:59 | disposition home or self-care (01) ==
LOC: RAD 10:42
PROVIDERS: PCP Internal Medicine Adolescent Medicine; Visit Provider Nurse Practitioner Family
DX: M54.42 Lumbago with sciatica, left side (principal)
CPT/HCPCS: 72072; 72110